=== PATIENT | female | born 1930 | race Caucasian/White ===

== ENCOUNTER 2016-09-25 22:08 | Emergency (ER) | payer MEDICARE ==
[2016-09-25] MEDS ORDERED: METOPROLOL SUCCINATE 25 MG TAB.SR.24H PO ONE (22:27)
[2016-09-25] MEDS ORDERED: MECLIZINE HCL 25 MG TABLET PO ONE (22:31)
--- NOTE | 2016-09-25 22:31 | ER Document Report ---
ED General - General Stated Complaint: DIZZY Mode of Arrival: Medic Information source: Patient, Relative Notes: 85 yr old female with hx of afib, on xarelto plavi presents with complaints of high blood pressure and heart racing with head pressure. pt denies any neuro deficits, unsure of time frame of symptoms. notes she took her meds as prescribed. pt is on toprol. denies any fevers or chills, nausea or vomiting. pt denies any chest pain TRAVEL OUTSIDE OF THE [place] IN LAST 30 DAYS: No - HPI Onset: Just prior to arrival Onset/Duration: Sudden Quality of pain: No pain Severity: Mild Pain Level: Denies Associated symptoms: Other Exacerbated by: Denies Relieved by: Denies Similar symptoms previously: No Recently seen / treated by doctor: No - Related Data Allergies/Adverse Reactions: nitrofurantoin [From Macrobid] Allergy (Verified 09/25/16 23:34) nitrofurantoin macrocrystalline [From Macrobid] Allergy (Verified 09/25/16 23:34 ) Past Medical History - Social History Smoking Status: Never Smoker Cigarette use (# per day): No Chew tobacco use (# tins/day): No Smoking Education Provided: No Family History: Reviewed & Not Pertinent - Past Medical History Cardiac Medical History: Reports: Hx Atrial Fibrillation, Hx Coronary Artery Disease, Hx Hypercholesterolemia, Hx Hypertension Denies: Hx Heart Attack Pulmonary Medical History: Reports: Hx Asthma Denies: Hx Bronchitis, Hx COPD, Hx Pneumonia Neurological Medical History: Denies: Hx Cerebrovascular Accident, Hx Seizures Musculoskeltal Medical History: Reports Hx Arthritis - R.shoulder Past Surgical History: Reports: Hx Cardiac Catheterization - cardiac stents x 2 , Hx Cardiac Surgery - pacemaker, Hx Cholecystectomy, Hx Coronary Stent, Hx Genitourinary Surgery - bladder tac, vaginal mesh, Hx Hysterectomy, Hx Orthopedic Surgery - Right Hip, Hx Pacemaker - Immunizations Hx Diphtheria, Pertussis, Tetanus Vaccination: No Review of Systems - Review of Systems Notes: REVIEW OF SYSTEMS: CONSTITUTIONAL : Denies fever, chills, or sweats. Denies recent illness. EENT: Denies eye, ear, throat, or mouth pain or symptoms. Denies nasal or sinus congestion or discharge. Denies throat, tongue, or mouth swelling or difficulty swallowing. CARDIOVASCULAR: admits to afib, heart racing RESPIRATORY: Denies cough, cold, or chest congestion. Denies shortness of breath, difficulty breathing, or wheezing. GASTROINTESTINAL: admits to feeling gassy GENITOURINARY: Denies difficulty urinating, painful urination, burning, frequency, blood in urine, or discharge. FEMALE GENITOURINARY: Denies vaginal bleeding, heavy or abnormal periods, irregular periods. Denies vaginal discharge or odor. MUSCULOSKELETAL: Denies back or neck pain or stiffness. Denies joint pain or swelling. SKIN: Denies rash, lesions or sores. HEMATOLOGIC : Denies easy bruising or bleeding. LYMPHATIC: Denies swollen, enlarged glands. NEUROLOGICAL: Denies confusion or altered mental status. Denies passing out or loss of consciousness. Denies dizziness or lightheadedness. Denies headache. Denies weakness or paralysis or loss of use of either side. Denies problems with gait or speech. Denies sensory loss, numbness, or tingling. Denies seizures. PSYCHIATRIC: Denies anxiety or stress. Denies depression, suicidal ideation, or homicidal ideation. ALL OTHER SYSTEMS REVIEWED AND NEGATIVE. Dictation was performed using [employer] voice recognition software PHYSICAL EXAMINATION: GENERAL: Well-appearing, well-nourished and in no acute distress. HEAD: Atraumatic, normocephalic. EYES: Pupils equal round and reactive to light, extraocular movements intact, conjunctiva are normal. ENT: Nares patent, oropharynx clear without exudates. Moist mucous membranes. NECK: Normal range of motion, supple without lymphadenopathy LUNGS: Breath sounds clear to auscultation bilaterally and equal. No wheezes rales or rhonchi. HEART: irregular rate and rythm, around 95-110 ABDOMEN: Soft, nontender, nondistended abdomen. No guarding, no rebound. No masses appreciated. Female : deferred Musculoskeletal: Normal range of motion, no pitting or edema. No cyanosis. NEUROLOGICAL: Cranial nerves grossly intact. Normal speech, normal gait. Normal sensory, motor exams PSYCH: Normal mood, normal affect. SKIN: Warm, Dry, normal turgor, no rashes or lesions noted. Physical Exam - Vital signs Vitals: Pulse Resp BP Pulse Ox 101 H 16 166/105 H 97 09/25/16 22:15 09/25/16 22:15 09/25/16 22:15 09/25/16 22:15 Course - Re-evaluation Re-evalutation: 09/25/16 22:31 pt has very vague complaints, will order ct head, lab work, cardiac workup and ua for complete evaluation . pt herself unable to explain what she is feeling 09/26/16 00:14 Patient's heart rate blood pressure have stabilized, she notes significant improvement in symptoms. Lab work imaging are negative reports will be provided for follow-up with primary care on Wednesday family is happy for discharge After performing a Medical Screening Examination, I estimate there is LOW risk for ACUTE GLAUCOMA, TEMPORAL ARTERITIS, MENINGITIS, INCRANIAL HEMORRHAGE, or ISCHEMIC STROKE thus I consider the discharge disposition reasonable. The patient and I have discussed the diagnosis and risks, and we agree with discharging home with close follow-up with the understanding that symptoms and presentations can change. We also discussed returning to the Emergency Department immediately if new or worsening symptoms occur. We have discussed the symptoms which are most concerning (e.g., changing or worsening symptoms, new numbness or weakness, vomiting, fever) that necessitate immediate return. - Vital Signs Vital signs: Temp Pulse Resp BP Pulse Ox 101 H 16 166/105 H 97 09/25/16 22:15 09/25/16 22:15 09/25/16 22:15 09/25/16 22:15 - Laboratory Result Diagrams: 09/25/16 23:15 09/25/16 23:15 Laboratory results interpreted by me: 09/25/16 09/25/16 23:15 23:15 Hgb 11.7 L MCHC 31.6 L RDW 14.8 H AST 60 H Creatine Kinase 23 L Total Protein 6.2 L - Diagnostic Test Radiology reviewed: Image reviewed, Reports reviewed - EKG Interpretation by Me EKG shows normal: Sinus rhythm, Jackson, Intervals, QRS Complexes Rhythm: A.Fib Discharge - Discharge Clinical Impression: Headache Qualifiers: Headache type: unspecified Headache chronicity pattern: acute headache Intractability: not intractable Qualified Code(s): R51 - Headache Afib Qualifiers: Atrial fibrillation type: persistent Qualified Code(s): I48.1 - Persistent atrial fibrillation HTN (hypertension) Qualifiers: Hypertension type: essential hypertension Qualified Code(s): I10 - Essential ( primary) hypertension Condition: Stable Disposition: HOME, SELF-CARE Additional Instructions: Headache The physician does not feel that the headache you are experiencing has a serious underlying cause. Most headaches are due to emotional stress, with resultant muscle tension (tension headache). Occasionally, headaches are secondary to changes in the blood vessels of the scalp (vascular headache and migraine headache). Sometimes, a headache is the first symptom of another developing illness, such as a viral infection. You have no evidence of stroke, bleeding, meningitis, or other serious cause of your headache. The treatment of headaches varies with the severity and cause of the pain. Not all headaches need pain shots. In fact, there is evidence that using narcotics for headaches may make them worse in the long run. The physician will determine the therapy that's in your best interest. If you develop a fever, if the headache is different from any you've previously experienced, or if the headache progressively worsens, then call your physician at once or go to the emergency room. Referrals: Sebastien Delcid DO [Primary Care Provider] - Follow up in 3-5 days
[2016-09-25 23:40] LABS: ABSOLUTE LYMPHOCYTES (AUTO) 1.1 10^3/uL (0.5-4.7); ABSOLUTE MONOCYTES (AUTO) 0.6 10^3/uL (0.1-1.4); ABSOLUTE NEUT (AUTO) 5.4 10^3/uL (1.7-8.2); BASOPHILS % (AUTO) 0.5 % (0-2); EOSINOPHILS % (AUTO) 0.6 % (0-6); HEMOGLOBIN 11.7 g/dL (12.0-15.5); HGB HCT DIFFERENCE -1.9; LYMPHOCYTES % (AUTO) 15.8 % (13-45); MEAN CORPUSCULAR HEMOGLOBIN 30.4 pg (27.0-33.4); MEAN CORPUSCULAR HGB CONC 31.6 g/dL (32.0-36.0); MEAN CORPUSCULAR VOLUME 96 fl (80-97); MONOCYTES % (AUTO) 8.5 % (3-13); RED BLOOD COUNT 3.85 10^6/uL (3.72-5.28); RED CELL DISTRIBUTION WIDTH 14.8 % (11.5-14.0); SEGMENTED NEUTROPHILS % (AUTO) 74.6 % (42-78); WHITE BLOOD COUNT 7.3 10^3/uL (4.0-10.5)
[2016-09-25 23:46] LABS: ALANINE AMINOTRANSFERASE 40 U/L (9-52); ALBUMIN 3.6 g/dL (3.5-5.0); ALKALINE PHOSPHATASE 82 U/L (38-126); ANION GAP 7 (5-19); ASPARTATE AMINO TRANSFERASE 60 U/L (14-36); BILIRUBIN,TOTAL 0.6 mg/dL (0.2-1.3); BLOOD UREA NITROGEN 16 mg/dL (7-20); CALCIUM 9.2 mg/dL (8.4-10.2); CARBON DIOXIDE 30 mmol/L (22-30); CHLORIDE 104 mmol/L (98-107); CREATINE KINASE 23 U/L (30-135); CREATININE RESULT 0.58 mg/dL (0.52-1.25); GLUCOSE 107 mg/dL (75-110); POTASSIUM 4.1 mmol/L (3.6-5.0); SODIUM 140.9 mmol/L (137-145); TOTAL PROTEIN 6.2 g/dL (6.3-8.2)
[2016-09-25 23:57] LABS: APPEARANCE,URINE CLEAR; BILIRUBIN,URINE NEGATIVE (NEGATIVE); GLUCOSE, URINE NEGATIVE (NEGATIVE); KETONES,URINE NEGATIVE (NEGATIVE); LEUKOCYTE ESTERASE,URINE NEGATIVE (NEGATIVE); NITRITE,URINE NEGATIVE (NEGATIVE); PROTEIN,URINE NEGATIVE (NEGATIVE); URINE SPECIFIC GRAVITY 1.009; UROBILINOGEN,URINE NEGATIVE mg/dL (<2.0)
[2016-09-25 23:58] LABS: CREATINE KINASE MB 0.56 ng/mL (<4.55)
[2016-09-26 00:01] LABS: TROPONIN I < 0.012 ng/mL
[2016-09-26 01:41] VITALS: BP 146/82
--- NOTE | 2016-09-26 09:23 | EKG REPORT ---
SEVERITY:- ABNORMAL ECG - ATRIAL FIBRILLATION, V-RATE 72-111 BORDERLINE T ABNORMALITIES, ANT-LAT LEADS : Confirmed by: Wendy Mustafa MD 26-Sep-2016 09:23:09
== END 2016-09-26 01:41 | disposition home or self-care (01) ==
LOC: ER 22:08
DX: I48.1 Persistent atrial fibrillation (principal); I25.10 Atherosclerotic heart disease of native coronary artery without angina pectoris; I10 Essential (primary) hypertension; R51 Headache; J45.909 Unspecified asthma, uncomplicated; Z79.01 Long term (current) use of anticoagulants; Z79.899 Other long term (current) drug therapy; Z88.1 Allergy status to other antibiotic agents; Z98.61 Coronary angioplasty status; Z95.0 Presence of cardiac pacemaker
CPT/HCPCS: 93005; 99285; 36415; 82553; 82550; 85025; 80053; 81001; 84484; 71020; 70450; 93010; A9270 ×2

== ENCOUNTER 2017-01-17 21:24 | Observation (INO) | payer MEDICARE ==
--- NOTE | 2017-01-17 22:20 | ER Document Report ---
ED General - General Chief Complaint: Headache Stated Complaint: HEADACHE Notes: Patient is a very pleasant 86-year-old female who presents with complaints of difficulty talking. She said yesterday she 7 speech difficulties and her speech was garbled and she was unable to get out the words she wants a. This morning she says that she felt like she cannot process information that was being said to her and she was having difficulty responding. The symptoms have since resolved. Tonight she developed headache. Headache is only the back of her head. She says the headache gradually worsened. Headache was not sudden in onset. She says the headache is still there but much improved. His story was earlier. No focal weakness or numbness in the arms or legs. No difficulty in relating. She does have a history of atrial fibrillation and is on Xarelto. She does have a history of heart attack with stent and is on Plavix. No history of strokes. TRAVEL OUTSIDE OF THE [place] IN LAST 30 DAYS: No - Related Data Allergies/Adverse Reactions: nitrofurantoin [From Macrobid] Allergy (Verified 09/25/16 23:34) nitrofurantoin macrocrystalline [From Macrobid] Allergy (Verified 09/25/16 23:34 ) Past Medical History - Social History Smoking Status: Never Smoker Frequency of alcohol use: None Drug Abuse: None Family History: Reviewed & Not Pertinent - Past Medical History Cardiac Medical History: Reports: Hx Atrial Fibrillation, Hx Coronary Artery Disease, Hx Hypercholesterolemia, Hx Hypertension Denies: Hx Heart Attack Pulmonary Medical History: Reports: Hx Asthma Denies: Hx Bronchitis, Hx COPD, Hx Pneumonia Neurological Medical History: Denies: Hx Cerebrovascular Accident, Hx Seizures Musculoskeltal Medical History: Reports Hx Arthritis - R.shoulder Past Surgical History: Reports: Hx Cardiac Catheterization - cardiac stents x 2 , Hx Cardiac Surgery - pacemaker, Hx Cholecystectomy, Hx Coronary Stent, Hx Genitourinary Surgery - bladder tac, vaginal mesh, Hx Hysterectomy, Hx Orthopedic Surgery - Right Hip, Hx Pacemaker - Immunizations Hx Diphtheria, Pertussis, Tetanus Vaccination: No Review of Systems - Review of Systems Notes: My Normal Review Basic REVIEW OF SYSTEMS: CONSTITUTIONAL : Denies fever, chills, or sweats. Denies recent illness. EENT: Denies eye, ear, throat, or mouth pain or symptoms. Denies nasal or sinus congestion. CARDIOVASCULAR: Denies chest pain. RESPIRATORY: Denies cough, cold, or chest congestion. Denies shortness of breath, difficulty breathing, or wheezing. GASTROINTESTINAL: Denies abdominal pain. Denies nausea, vomiting, or diarrhea. Denies constipation. Last BM: MUSCULOSKELETAL: Denies neck or back pain or joint pain or swelling. SKIN: Denies rash or skin lesions. HEMATOLOGIC : On blood thinners. NEUROLOGICAL: Denies altered mental status or loss of consciousness. Has a headache. Denies weakness or paralysis or loss of use of either side. Had difficulty talking.. Denies sensory or motor loss. Physical Exam - Vital signs Vitals: Temp Resp BP Pulse Ox 97.9 F 21 H 176/85 H 97 01/17/17 21:48 01/17/17 21:48 01/17/17 21:48 01/17/17 21:48 - Notes Notes: General Appearance: Well nourished, alert, cooperative, no acute distress, no obvious discomfort. Very well-appearing. Vitals: reviewed, See vital signs table. Head: no swelling or tenderness to the head Eyes: PERRL, EOMI, Conjuctiva clear Mouth: No decreasd moisture Neck: Supple, no neck tenderness, No thyromegaly Lungs: No wheezing, No rales, No rhonci, No accessory muscle use, good air exchange bilaterally. Heart: Normal rate, Regular rythm, No murmur, no rub Abdomen: Normal BS, soft, No rigidity, No abdominal tenderness, No guarding, no rebound, no abdominal masses, no organomegaly Extremities: strength 5/5 in all extremities, good pulses in all extremities, no swelling or tenderness in the extremities, no edema. Skin: warm, dry, appropriate color, no rash Neuro: speech clear, oriented x 3, normal affect, responds appropriately to questions. Cranial nerves II through XII are intact. Distal sensation intact. Patient moves all extremities without difficulty. Normal gait. Normal Romberg. Course - Vital Signs Vital signs: Temp Pulse Resp BP Pulse Ox 97.9 F 18 153/87 H 97 01/17/17 21:48 01/18/17 00:01 01/18/17 00:01 01/18/17 00:01 - Laboratory Result Diagrams: 01/17/17 22:20 01/17/17 22:20 Laboratory results interpreted by me: 01/17/17 01/17/1717 22:20 22:20 22:20 WBC 11.1 H Plt Count 147 L Seg Neutrophils % 83.3 H Lymphocytes % 7.9 L Absolute Neutrophils 9.3 H PT 28.6 H APTT 38.8 H Sodium 131.4 L BUN 22 H Glucose 111 H Total Protein 5.7 L Albumin 3.4 L Ur Leukocyte Esterase 01/17/17 23:01 WBC Plt Count Seg Neutrophils % Lymphocytes % Absolute Neutrophils PT APTT Sodium BUN Glucose Total Protein Albumin Ur Leukocyte Esterase TRACE H - EKG Interpretation by Me Additional EKG results interpreted by me: 01/17/17 22:34 EKG is reviewed and interpreted by me. EKG shows atrial fibrillation with rate of 83 beats per minute. No ST segment elevation or depression. No ischemic T wave inversions. QRS duration QTC intervals are within normal range. Old EKG for comparison is from 09/25/2016. - Transfer of Care Notes: 01/18/17 00:44 Patient has signs and symptoms consistent with a TA and that she was having slurring of her speech as well as difficulty processing information earlier today and from night before. She did have a headache which is gradual in onset. Not sudden onset. All her symptoms have since resolved. She is well- appearing. At this time I spoke with the hospitalist about admission for TIA. Patient and family are agreeable to this. Hospitalist agrees to admit the patient. Dictation of this chart was performed using voice recognition software; therefore, there may be some unintended grammatical errors. Discharge - Discharge Clinical Impression: TIA (transient ischemic attack) Qualifiers: Transient cerebral ischemia type: unspecified Qualified Code(s): G45.9 - Transient cerebral ischemic attack, unspecified Headache Qualifiers: Headache type: unspecified Headache chronicity pattern: acute headache Intractability: not intractable Qualified Code(s): R51 - Headache Condition: Stable Disposition: ADMITTED OBSERVATION Admitting Provider: Hospitalist Unit Admitted: Telemetry
--- NOTE | 2017-01-17 22:36 | EKG REPORT ---
SEVERITY:- ABNORMAL ECG - ATRIAL FIBRILLATION, V-RATE 69-101 CONSIDER LEFT VENTRICULAR HYPERTROPHY BORDERLINE T ABNORMALITIES, INFERIOR LEADS : Confirmed by: Dusty Hunter MD 17-Jan-2017 22:36:27
[2017-01-17 22:37] LABS: ABSOLUTE LYMPHOCYTES (AUTO) 0.9 10^3/uL (0.5-4.7); ABSOLUTE MONOCYTES (AUTO) 0.9 10^3/uL (0.1-1.4); ABSOLUTE NEUT (AUTO) 9.3 10^3/uL (1.7-8.2); BASOPHILS % (AUTO) 0.2 % (0-2); EOSINOPHILS % (AUTO) 0.2 % (0-6); HEMATOCRIT 38.4 % (36.0-47.0); HEMOGLOBIN 13.1 g/dL (12.0-15.5); HGB HCT DIFFERENCE 0.9; LYMPHOCYTES % (AUTO) 7.9 % (13-45); MEAN CORPUSCULAR HEMOGLOBIN 31.9 pg (27.0-33.4); MEAN CORPUSCULAR HGB CONC 34.3 g/dL (32.0-36.0); MEAN CORPUSCULAR VOLUME 93 fl (80-97); MONOCYTES % (AUTO) 8.4 % (3-13); RED BLOOD COUNT 4.12 10^6/uL (3.72-5.28); RED CELL DISTRIBUTION WIDTH 13.7 % (11.5-14.0); SEGMENTED NEUTROPHILS % (AUTO) 83.3 % (42-78); WHITE BLOOD COUNT 11.1 10^3/uL (4.0-10.5)
[2017-01-17 22:54] LABS: ALANINE AMINOTRANSFERASE 42 U/L (9-52); ALBUMIN 3.4 g/dL (3.5-5.0); ALKALINE PHOSPHATASE 86 U/L (38-126); ANION GAP 7 (5-19); ASPARTATE AMINO TRANSFERASE 22 U/L (14-36); BILIRUBIN,DIRECT 0.1 mg/dL (0.0-0.4); BILIRUBIN,TOTAL 0.6 mg/dL (0.2-1.3); BLOOD UREA NITROGEN 22 mg/dL (7-20); CARBON DIOXIDE 26 mmol/L (22-30); CHLORIDE 98 mmol/L (98-107); CREATININE RESULT 0.64 mg/dL (0.52-1.25); GLUCOSE 111 mg/dL (75-110); MAGNESIUM 1.9 mg/dL (1.6-2.3); POTASSIUM 4.4 mmol/L (3.6-5.0); SODIUM 131.4 mmol/L (137-145); TOTAL PROTEIN 5.7 g/dL (6.3-8.2)
[2017-01-17 23:22] LABS: PROTHROMBIN TIME 28.6 SEC (11.4-15.4)
[2017-01-17 23:23] LABS: PARTIAL THROMBOPLASTIN TIME 38.8 SEC (23.5-35.8)
[2017-01-17 23:24] LABS: APPEARANCE,URINE CLEAR; BILIRUBIN,URINE NEGATIVE (NEGATIVE); GLUCOSE, URINE NEGATIVE (NEGATIVE); KETONES,URINE NEGATIVE (NEGATIVE); LEUKOCYTE ESTERASE,URINE TRACE (NEGATIVE); NITRITE,URINE NEGATIVE (NEGATIVE); PROTEIN,URINE NEGATIVE (NEGATIVE); URINE SPECIFIC GRAVITY 1.011; UROBILINOGEN,URINE NEGATIVE mg/dL (<2.0)
[2017-01-18] MEDS ORDERED: ASPIRIN 81 MG TABLET, CHEWABLE PO ONE (00:43)
[2017-01-18 00:57] LABS: ADD ON TESTING BLD IN LAB ACKNOWLEDGE
[2017-01-18 01:54] LABS: DIGOXIN < 0.40 ng/mL (0.8-2.0)
[2017-01-18] MEDS ORDERED: ACETAMINOPHEN 325 MG TABLET PO PRN (02:17)
[2017-01-18] MEDS ORDERED: NORMAL SALINE 1000 ML 1,000 ML IV PRN (02:17)
--- NOTE | 2017-01-18 02:54 | PDOC H&P ---
History of Present Illness Admission Date/PCP: 01/18/17 00:56 [facility], Chow, " Patient complains of: headache History of Present Illness: ROBINSON HAMM is a 86 year old female with underlying hyperlipidemia, mild anxiety, easy bruising, arthritis, atrial fibrillation, on Xarelto for same , known coronary artery disease, having undergone stent 3, with most recent stent in 2014, who presents to the emergency room for evaluation of above complaint. Patient has been discussed with emergency room physician who evaluated the patient. On the sixth of this month, she began having difficulty with somewhat garbled speech, and unable to express the words she wanted. On the seventh, when other people were talking to her, she felt she couldn't process the information, and was having difficulty responding. No dysphagia or drooling. No numbness or tingling. No weakness. No prior such episodes. No history of stroke, TIA, mini stroke, or seizure. The evening of the seventh, she developed a mild occipital headache, which is still present but much improved. gradual development of a headache. Has headaches on occasion but not very often. No associated chest or abdominal pain, nausea vomiting, fever chills, diarrhea or dysuria. Basically she feels back to her usual self, other than the mild occipital headache. Laboratory results are listed in [facility] and are reviewed. X-ray summary results are listed below, with full report(s) reviewed. . EKG reviewed. And compared to a prior tracing from September 25 of this year. Social history/personal habits: . Lives with . Adult children. No use of alcohol tobacco or illicit drugs. Allergies/adverse reactions are listed in [facility] and are reviewed. Home medications Home medications initially autopopulated into [facility] may not accurately reflect patient's true medications, dosages, and/or frequencies. operating room technologist to reconcile medications. REVIEW OF SYSTEMS: Constitutional: No fever or chills. Eyes: Wears glasses. ENT: No swallowing problems or complaints. Partial hearing loss. Pulmonary: No current complaints. Cardiovascular: No current complaints, including chest pain. Gastrointestinal: No current complaints, including nausea or vomiting. Skin: No current complaints, including rashes. Hematologic: Easy bruising. Neurologic: See history and present illness. Musculoskeletal: Mild Joint pain from arthritis. Psychiatric: Mild Anxiety Endocrine: No current complaints, including polyuria. Genitourinary: No current complaints, including dysuria. PHYSICAL EXAMINATION: 5 feet 2 inches tall. 44.1 kg. BMI 17.8 kg/m. Blood pressure 172/92. Pulse 73 and regular. 98% saturation on room air. Respirations are 18 and unlabored. Temperature 97.9. Thin otherwise well-developed elderly female appearing approximately her stated age. Pleasant awake alert and cooperative. No obvious distress other than somewhat anxious. No agitation. Skin is warm and dry. No grossly obvious evidence of rash in areas of skin examined. No subcutaneous nodules palpated. ENT: Hearing grossly normal to normal conversation. Tongue midline on protrusion pink and slightly tacky. Eyes: No scleral icterus. Pupils equal and reactive to light at 4 mm. Cartwright conjunctivae. Neck is supple and nontender to gentle active range of motion and palpation. Midline trachea. No palpable thyroid nodule mass enlargement or tenderness. Lymphatic: No palpable cervical or clavicular nodes. Psychiatric: Reasonable insight into acute and chronic medical issues. Oriented to time location and why here. Lungs: Auscultation reveals clear and equal breath sounds bilaterally. No use of accessory respiratory muscles. Cardiovascular: Heart slightly irregular rate and rhythm, without gallop murmur or rub. No carotid or abdominal aortic bruits. No ankle or pedal edema. Faintly palpable dorsalis pedis pulses. Abdomen: soft, nontender with positive bowel sounds. No upper abdominal mass or organomegaly palpated. Extremities: Feet are warm and dry. No calf tenderness to compression. No grossly obvious visual evidence of calf swelling. Gentle manipulation of lower extremities fails to reveal any obvious evidence of injury or instability to knees hips or ankles. Neurologic: Cranial Nerves II through XII are grossly intact. Light touch intact at face, upper and lower extremities. Motor function of major muscle groups upper and lower extremities 5 over 5 and symmetric. Patellar reflexes absent. Absent Babinski. Past Medical History Cardiac Medical History: Reports: Atrial Fibrillation, Coronary Artery Disease, Hyperlipidema, Hypertension Denies: Congestive Heart Failure, DVT, Myocardial Infarction, Pulmonary Embolism Pulmonary Medical History: Reports: Asthma Denies: Bronchitis, Chronic Obstructive Pulmonary Disease (COPD), Pneumonia, Sleep Apnea EENT Medical History: Reports: Eyes - Glasses, Ears - Partial hearing loss Denies: Throat Neurological Medical History: Denies: Hemorrhagic CVA, Ischemic CVA, Seizures Endocrine Medical History: Denies: Diabetes Mellitus Type 1, Diabetes Mellitus Type 2, Hyperthyroidism, Hypothyroidism Renal/ Medical History: Reports: None GI Medical History: Denies: Cirrhosis, Gastroesophageal Reflux Disease, Hepatitis, Peptic Ulcer Disease Musculoskeltal Medical History: Reports: Arthritis - R.shoulder Skin Medical History: Reports: None Psychiatric Medical History: Reports: General Anxiety Disorder Denies: Alcohol Dependency, Depression, Substance Abuse, Tobacco Dependency Hematology: Reports: Anemia, Other - Easy bruising Infectious Medical History: Denies: Clostridium Difficile, Hepatitis B, Hepatitis C, Methicillin- Resistant Staph Aureus Past Surgical History Past Surgical History: Reports: Cholecystectomy, Coronary Stent - x 3; last 2014 , Hysterectomy, Orthopedic Surgery - Right Hip, Pacemaker Social History Information Source: Patient, Emergency Med Personnel, [facility] Records Lives with: Spouse/Significant other Smoking Status: Never Smoker Frequency of Alcohol Use: None Drugs: None - Advance Directive Resuscitation Status: Full Code Surrogate healthcare decision maker:: Zenon Echevarria Family History Family History: Reviewed & Not Pertinent Parental Family History Reviewed: Yes - mother of pneumonia; father of smoking problems. Children Family History Reviewed: Yes - Daughter with multiple sclerosis. Sibling(s) Family History Reviewed.: Yes - Hypertension Medication/Allergy Home Medications: Acetaminophen [Tylenol 325 mg Tablet] 650 mg PO Q4HP PRN 06/24/16 Atorvastatin Calcium [Lipitor 80 mg Tablet] 80 mg PO DAILY 06/24/16 Clopidogrel Bisulfate [Plavix 75 mg Tablet] 75 mg PO DAILY 06/24/16 Cyanocobalamin (Vitamin B-12) [B-12] 1,000 mcg PO Q2D 06/24/16 Lisinopril [Prinivil 2.5 mg Tablet] 2.5 mg PO DAILY 06/24/16 Metoprolol Succinate [Toprol XL 200 mg Tablet] 200 mg PO DAILY 06/24/16 Potassium Chloride 20 meq PO ASDIR PRN 06/24/16 Furosemide [Lasix] 40 mg PO ASDIR PRN 01/18/17 Montelukast Sodium 5 mg PO DAILY 01/18/17 Rivaroxaban [Xarelto] 15 mg PO QPM 01/18/17 Allergies/Adverse Reactions: nitrofurantoin [From Macrobid] Allergy (Verified 09/25/16 23:34) Physical Exam Vital Signs: Temp Pulse Resp BP Pulse Ox 97.9 F 73 18 147/74 H 99 01/17/17 21:48 01/18/17 02:00 01/18/17 02:00 01/18/17 02:00 01/18/17 02:00 Results Laboratory Results: 01/18/17 01:32 Troponin I < 0.012 Impressions: Head CT 01/17/17 21:58 IMPRESSION: MILD CHRONIC CHANGES OF ATROPHY AND MICROVASCULAR ISCHEMIA. NO ACUTE PROCESS. Assessment & Plan - Diagnosis (1) Abnormal urinalysis Is this a current diagnosis for this admission?: YesPlan: Urine culture. Will forego antibiotics at this time, with patient without symptoms of dysuria. (2) Acute focal neurological deficit Is this a current diagnosis for this admission?: YesPlan: Patient will be admitted under CVA/TIA protocol. Multiple imaging procedures, intracranial, vascular, and cardiac. lipid panel. Permissive hypertension, with some adjustment downward of parameters due to her anticoagulated state, combined with the fact that she is also on Plavix, and her advanced age. Patient is a full code. I have strongly urged patient not to get out of bed without calling nursing staff, to avoid a fall with injury.] Knee high SCDs for DVT prophylaxis; with patient on Xarelto, no need for Lovenox or heparin. Impression and plans were discussed with patient, who concurs. Time spent in evaluation and management of patient: 62 minutes (3) Dysarthria Is this a current diagnosis for this admission?: Yes (4) Headache Qualifiers: Headache type: unspecified Headache chronicity pattern: acute headache Intractability: not intractable Qualified Code(s): R51 - Headache Is this a current diagnosis for this admission?: YesPlan: mild; resolving with time. When necessary Tylenol. (5) Hyponatremia Is this a current diagnosis for this admission?: YesPlan: Possibly medication related. Follow-up chemistry. (6) Thrombocytopenia Is this a current diagnosis for this admission?: YesPlan: Intermittent in the past. Follow-up CBC. (7) Anticoagulated Is this a current diagnosis for this admission?: YesPlan: Resume home medications as appropriate once these have been determined and reviewed. (8) Atrial fibrillation Qualifiers: Atrial fibrillation type: unspecified Qualified Code(s): I48.91 - Unspecified atrial fibrillation Is this a current diagnosis for this admission?: YesPlan: Hemodynamically stable. Resume home medications as appropriate once these have been determined and reviewed. (9) Hyperlipidemia Qualifiers: Hyperlipidemia type: unspecified Qualified Code(s): E78.5 - Hyperlipidemia, unspecified Is this a current diagnosis for this admission?: YesPlan: Resume home medications as appropriate once these have been determined and reviewed. (10) Stented coronary artery Is this a current diagnosis for this admission?: YesPlan: Resume home medications as appropriate once these have been determined and reviewed.
[2017-01-18 07:12] LABS: HEMATOCRIT 40.2 % (36.0-47.0); HEMOGLOBIN 13.7 g/dL (12.0-15.5); HGB HCT DIFFERENCE 0.9; MEAN CORPUSCULAR HEMOGLOBIN 32.1 pg (27.0-33.4); MEAN CORPUSCULAR VOLUME 94 fl (80-97); RED BLOOD COUNT 4.26 10^6/uL (3.72-5.28); RED CELL DISTRIBUTION WIDTH 13.6 % (11.5-14.0)
[2017-01-18 07:17] LABS: PROTHROMBIN TIME 16.6 SEC (11.4-15.4)
[2017-01-18 07:21] LABS: ANION GAP 6 (5-19); BLOOD UREA NITROGEN 17 mg/dL (7-20); CALCIUM 9.3 mg/dL (8.4-10.2); CARBON DIOXIDE 28 mmol/L (22-30); CHLORIDE 101 mmol/L (98-107); CREATININE RESULT 0.57 mg/dL (0.52-1.25); GLUCOSE 92 mg/dL (75-110); POTASSIUM 4.4 mmol/L (3.6-5.0)
[2017-01-18 08:17] LABS: BASOPHILS % (MANUAL) 0 % (0-2); EOSINOPHILS % (MANUAL) 0 % (0-6); LYMPHOCYTES % (MANUAL) 12 % (13-45); TOTAL CELLS COUNTED 100
[2017-01-18 08:20] LABS: OVALOCYTES SLIGHT; POIKILOCYTOSIS SLIGHT
--- NOTE | 2017-01-18 08:57 | Physician Advisory Note ---
Physician Advisor ProgressNote .: Pursuant to the plan for [facility], I have reviewed the medical record for this patient. Physician Advisor Statement: Nice documentation of acute hyponatremia, possibly due to meds. Possible documentation opportunities if attending agrees: 1. "persistent Afib" [need specified whether persistent or paroxysmal] 2. "TIA" or "Acute cerebrovascular insufficiency" or "Acute __-sided thrombotic [or embolic, or other etiology] ___ artery* CVA with cerebral infarction, with dysarthria & ____, [resolved or improved or persistent] " *Ant/middle/post cerebral , sup cerebellar, or ant/post inf cerebellar artery? - Also, please specify whether pt is Rt or Lt-handed. 3. "underweight with protein-calorie malnutrition [state mild, mod, or severe] with BMI 17.8, ____[?wt loss, ?appetite loss, ]" [if possible, give specifics on intake, wt loss, loss of SQ fat & muscle mass, diminished hand inorganic chemistry professor strength, & clinical importance such as (A) nutritional assessment ordered, (B) modified diet or supplements ordered, (C) additional labs ordered, (D) prolonged wound healing time, (E) delayed infxn clearance] 4. Medical necessity: please see below under "Status". As always, if concerned about any unstable VS or abnormal labs, please comment on them - what bad things they might indicate, why they concern you - & note what doing about them. Please also document each day the potential clinical problems you are concerned could occur if pt not kept in hospital for tx at this time. (These points are real - if present in each note, attending's status decision should be sufficiently supported.) Discussion: 86yo female w/ chronic co-morbidities including CAD w/stents/pacer/MO/Plavix, Afib persistent - on Xarelto, HTN, HLD, asthma - presented 5/7 PM to ED w/difficulty getting words out & processing info, then ALTMAN of occipital area (+) BMI 17.8, WBC 11.1, plts 147, Na 131.4, BUN 22, Cr 0.64, glc 111, U/A w/tr LE. Attending ordered PT eval, VS q4h, neuro exams, ur cx, senior technical analyst consult, tele monitoring, I/Os, aspiration prec.s, carotid dops, echo, po KCL, Lipitor high dose Status: This 86yo [facility] [employer] pt with mild neuro sx that don't affect ADLs, + acute hyponatremia, is approp to start as Outpt Obs for acute focal neuro deficit ("a symptom dx"). Please document if ongoing tx & observation in inpatient hospital setting becomes medically reasonable & necessary to protect pt's health, safety, & medical condition. Thanks for your help with documentation accuracy/specificity improvement! Brooklyn Guadalupe MD [facility]ENDING [facility] Physician Advisor, Fellow of Hospital Medicine
[2017-01-18] MEDS ORDERED: LISINOPRIL 5 MG TABLET PO SCH (10:00)
[2017-01-18] MEDS ORDERED: ASPIRIN 81 MG TABLET, ENT COATED PO SCH (10:00)
[2017-01-18] MEDS ORDERED: METOPROLOL SUCCINATE 50 MG TAB.SR.24H PO SCH (10:00)
[2017-01-18] MEDS ORDERED: CLOPIDOGREL BISULFATE 75 MG TABLET PO SCH (10:00)
[2017-01-18] MEDS ORDERED: DOCUSATE SODIUM 100 MG CAPSULE PO SCH (10:00)
[2017-01-18] MEDS ORDERED: MONTELUKAST SODIUM 5 MG TAB.CHEW PO SCH (10:00)
[2017-01-18] MEDS ORDERED: CYANOCOBALAMIN (VITAMIN B-12) 1,000 MCG TABLET PO SCH (10:00)
--- NOTE | 2017-01-18 11:00 | PDOC DISCHARGE SUMMARY ---
General - Admit/Disc Date/PCP Admission Date/Primary Care Provider: 01/18/17 02:17 Discharge Date: 01/18/17 - Discharge Diagnosis (1) TIA (transient ischemic attack) Is this a current diagnosis for this admission?: Yes (2) Atrial fibrillation Is this a current diagnosis for this admission?: Yes (3) Thrombocytopenia Is this a current diagnosis for this admission?: Yes (4) Anticoagulated Is this a current diagnosis for this admission?: Yes (5) Hyperlipidemia Is this a current diagnosis for this admission?: Yes (6) Stented coronary artery Is this a current diagnosis for this admission?: Yes - Additional Information Resuscitation Status: Full Code Discharge Diet: Cardiac Discharge Activity: Slowly Increase Activity Home Medications: Acetaminophen [Tylenol 325 mg Tablet] 650 mg PO Q4HP PRN 06/24/16 Atorvastatin Calcium [Lipitor 80 mg Tablet] 80 mg PO DAILY 06/24/16 Clopidogrel Bisulfate [Plavix 75 mg Tablet] 75 mg PO DAILY 06/24/16 Cyanocobalamin (Vitamin B-12) [B-12] 1,000 mcg PO Q2D 06/24/16 Lisinopril [Prinivil 2.5 mg Tablet] 2.5 mg PO DAILY 06/24/16 Metoprolol Succinate [Toprol XL 200 mg Tablet] 200 mg PO DAILY 06/24/16 Potassium Chloride 20 meq PO ASDIR PRN 06/24/16 Furosemide [Lasix] 40 mg PO ASDIR PRN 01/18/17 Montelukast Sodium 5 mg PO DAILY 01/18/17 Rivaroxaban [Xarelto] 15 mg PO QPM 01/18/17 History of Present Illness Patient complains of: Dysarthria History of Present Illness: ROBINSON HAMM is a 86 year old female with past medical history of coronary artery disease, atrial fibrillation that presents with history of dysarthria starting 2 days prior to presentation. Dysarthria had resolved at time of presentation. Patient had no focal neurologic findings on presentation. Hospital Course Hospital Course: Patient was placed in observation status. Neurologic status remained stable. Patient is fully anticoagulated on Xarelto at baseline for atrial fibrillation. She has also been on Plavix for a stented coronary artery. She states that she is supposed to terminate her Plavix in one month anyway because she is going to be one year status post coronary intervention. She is followed by Dr. Chow of cardiology with [facility]. Patient was evaluated by physical therapy and had no deficits. She was able to ambulate 300 feet without assistance. After discussion with patient she has decided that she would rather have her carotid Doppler performed as an outpatient. I think that is reasonable as she has absolutely no neurologic deficits at this time and she is on full anticoagulation and antiplatelet therapy, as well as a statin. Patient is to follow-up with her primary care provider Dr. Delcid at [facility]. We will need her primary care provider to arrange outpatient carotid Doppler study. Physical Exam Vital Signs: Temp Pulse Resp BP Pulse Ox 98.0 F 96 17 162/84 H 99 01/18/17 07:17 01/18/17 08:00 01/18/17 08:00 01/18/17 08:00 01/18/17 08:00 Intake & Output 01/17/17 01/18/17 01/19/17 06:59 06:59 06:59 Weight 44.6 kg GENERAL: No acute distress HEENT: Conjunctiva clear, nonicteric, moist mucous membranes, no JVD, midline trachea RESPIRATORY: Clear to auscultation bilaterally, no wheezes, no rhonchi CARDIAC: Irregularly irregular ABDOMEN: Soft, nondistended, nontender, positive bowel sounds, no rebound, no guarding EXTREMETIES: No edema, cyanosis, clubbing NEUROLOGIC: Alert, oriented to person/place/time, CN's grossly intact, no focal deficits SKIN: No rash, wounds PSYCH: Normal mood, normal affect Results Laboratory Results: 01/18/17 06:54 01/18/17 06:54 01/18/17 01/18/17 06:54 06:54 WBC 10.0 RBC 4.26 Hgb 13.7 Hct 40.2 MCV 94 MCH 32.1 MCHC 34.0 RDW 13.6 Plt Count 137 L Seg Neutrophils % Not Reportable Lymphocytes % Not Reportable Monocytes % Not Reportable Eosinophils % Not Reportable Basophils % Not Reportable Absolute Neutrophils Not Reportable Absolute Lymphocytes Not Reportable Absolute Monocytes Not Reportable Absolute Eosinophils Not Reportable Absolute Basophils Not Reportable Sodium 135.0 L Potassium 4.4 Chloride 101 Carbon Dioxide 28 Anion Gap 6 BUN 17 Creatinine 0.57 Est GFR ( Amer) > 60 Est GFR (Non-Af Amer) > 60 Glucose 92 Calcium 9.3 EKG Comments: Atrial fibrillation, rate controlled Impressions: Head CT 01/17/17 21:58 IMPRESSION: MILD CHRONIC CHANGES OF ATROPHY AND MICROVASCULAR ISCHEMIA. NO ACUTE PROCESS. Qualifiers PATEINT BEING DISCHARGED WITH ANY OF THE FOLLOWING DIAGNOSIS?: Stroke VTE patient discharged on overlapping Therapy?: Yes Stroke Pt being discharged on Anti-thrombolytic therapy?: Yes Stroke Pt being discharged on Anti-coagulation therapy?: Yes Stroke Pt being discharged on Statins?: Yes Plan Time Spent: Less than 30 Minutes
[2017-01-18 12:06] VITALS: BP 160/65
[2017-01-18] MEDS ORDERED: ATORVASTATIN CALCIUM 80 MG TABLET PO SCH (22:00)
== END 2017-01-18 12:18 | disposition home or self-care (01) ==
LOC: ER 21:24 → EH 01-18 00:56 → UNDOADMOB 01-18 00:56 → EH 01-18 02:17 → 3S 01-18 03:45
PROVIDERS: ADMIT Family Medicine; ATTEND Family Medicine
DX: G45.9 Transient cerebral ischemic attack, unspecified (principal); I48.91 Unspecified atrial fibrillation; D69.6 Thrombocytopenia, unspecified; E78.5 Hyperlipidemia, unspecified; I25.10 Atherosclerotic heart disease of native coronary artery without angina pectoris; F41.9 Anxiety disorder, unspecified; M13.811 Other specified arthritis, right shoulder; J45.909 Unspecified asthma, uncomplicated; R82.90 Unspecified abnormal findings in urine; E87.1 Hypo-osmolality and hyponatremia; Z79.01 Long term (current) use of anticoagulants; Z95.5 Presence of coronary angioplasty implant and graft; Z79.02 Long term (current) use of antithrombotics/antiplatelets; Z79.899 Other long term (current) drug therapy; Z95.0 Presence of cardiac pacemaker; Z90.49 Acquired absence of other specified parts of digestive tract; Z82.49 Family history of ischemic heart disease and other diseases of the circulatory system; Z83.1 Family history of other infectious and parasitic diseases
CPT/HCPCS: 93005; 99285; 36415 ×2; 87086; 80162; 83735; 85025 ×2; 85610 ×2; 85730; 80048; 80053; 81001; 84484; 70450; 93010; 97163; G0378 ×2; A9270 ×7; J3490; J7030; G8978; G8979; G8980

== ENCOUNTER 2017-06-03 14:21 | Emergency (ER) | payer MEDICARE ==
--- NOTE | 2017-06-03 15:00 | ER Document Report ---
ED Medical Screen (RME) - General Chief Complaint: Headache Stated Complaint: VISION PROBLEM Time Seen by Provider: 06/03/17 14:58 Notes: Patient reports that just prior to arrival she had some blurry vision. She states it started suddenly while eating at [employer]. She states she was unable to tell which eye was affected. She also states that her left hand felt numb. She states he feels back to normal now. She states she has had a mini stroke in the past and that she has had a heart attack as well. She states she has 3 cardiac stents. She also has a history of atrial fibrillation and is on aspirin and Xarelto daily. TRAVEL OUTSIDE OF THE [place] IN LAST 30 DAYS: No - Related Data Allergies/Adverse Reactions: nitrofurantoin [From Macrobid] Allergy (Verified 09/25/16 23:34) Past Medical History - Past Medical History Cardiac Medical History: Reports: Hx Atrial Fibrillation, Hx Coronary Artery Disease, Hx Hypercholesterolemia, Hx Hypertension Denies: Hx Congestive Heart Failure, Hx DVT, Hx Heart Attack, Hx Pulmonary Embolism Pulmonary Medical History: Reports: Hx Asthma Denies: Hx Bronchitis, Hx COPD, Hx Pneumonia, Hx Sleep Apnea, Hx Tuberculosis Neurological Medical History: Denies: Hx Cerebrovascular Accident, Hx Seizures Endocrine Medical History: Denies: Hx Diabetes Mellitus Type 1, Hx Diabetes Mellitus Type 2, Hx Hyperthyroidism, Hx Hypothyroidism Renal/ Medical History: Denies: Hx End Stage Renal Disease, Hx Kidney Stones, Hx Peritoneal Dialysis GI Medical History: Denies: Hx Cirrhosis, Hx Gastroesophageal Reflux Disease, Hx Hepatitis, Hx Ulcer Musculoskeltal Medical History: Reports Hx Arthritis - R.shoulder , Denies Hx Multiple Sclerosis Psychiatric Medical History: Denies: Hx Bipolar Disorder, Hx Depression, Hx Schizophrenia Infectious Medical History: Denies: Hx C-Diff, Hx Hepatitis, Hx MRSA Past Surgical History: Reports: Hx Cardiac Catheterization - cardiac stents x 2 , Hx Cardiac Surgery - pacemaker, Hx Cholecystectomy, Hx Coronary Stent - x 3; last 2014, Hx Genitourinary Surgery - bladder tac, vaginal mesh, Hx Hysterectomy , Hx Orthopedic Surgery - Right Hip, Hx Pacemaker - Immunizations Hx Diphtheria, Pertussis, Tetanus Vaccination: No Physical Exam - Vital signs Vitals: Temp Pulse Resp BP Pulse Ox 98.2 F 84 20 159/69 H 97 06/03/17 14:40 06/03/17 14:40 06/03/17 14:40 06/03/17 14:40 06/03/17 14:40 Course - Vital Signs Vital signs: Temp Pulse Resp BP Pulse Ox 98.2 F 84 20 159/69 H 97 06/03/17 14:40 06/03/17 14:40 06/03/17 14:40 06/03/17 14:40 06/03/17 14:40
--- NOTE | 2017-06-03 16:21 | ER Document Report ---
ED General - General Chief Complaint: Headache Stated Complaint: VISION PROBLEM Time Seen by Provider: 06/03/17 14:58 Mode of Arrival: Ambulatory Information source: Patient, Relative TRAVEL OUTSIDE OF THE [place] IN LAST 30 DAYS: No - HPI Patient complains to provider of: Blurred vision, headache Onset: Just prior to arrival Onset/Duration: Sudden Quality of pain: Achy Severity: Mild Pain Level: 2 Associated symptoms: Headache Exacerbated by: Denies Relieved by: Denies Notes: Patient is an 86-year-old female presenting to the emergency room complaining of 15-20 minute episode of blurred vision with tingling sensation in her right hand that occurred while she was at dinner just prior to arrival, she reports at time of my evaluation that she has a mild headache, however the other symptoms are completely resolved, she denies any fever, no injury, no weakness of any extremities, no speech difficulties - Related Data Allergies/Adverse Reactions: nitrofurantoin [From Macrobid] Allergy (Verified 09/25/16 23:34) Past Medical History - General Information source: Patient - Social History Smoking Status: Never Smoker Family History: Reviewed & Not Pertinent Patient has suicidal ideation: No Patient has homicidal ideation: No - Past Medical History Cardiac Medical History: Reports: Hx Atrial Fibrillation, Hx Coronary Artery Disease, Hx Hypercholesterolemia, Hx Hypertension Denies: Hx Congestive Heart Failure, Hx DVT, Hx Heart Attack, Hx Pulmonary Embolism Pulmonary Medical History: Reports: Hx Asthma Denies: Hx Bronchitis, Hx COPD, Hx Pneumonia, Hx Sleep Apnea, Hx Tuberculosis Neurological Medical History: Denies: Hx Cerebrovascular Accident, Hx Seizures Endocrine Medical History: Denies: Hx Diabetes Mellitus Type 1, Hx Diabetes Mellitus Type 2, Hx Hyperthyroidism, Hx Hypothyroidism Renal/ Medical History: Denies: Hx End Stage Renal Disease, Hx Kidney Stones, Hx Peritoneal Dialysis GI Medical History: Denies: Hx Cirrhosis, Hx Gastroesophageal Reflux Disease, Hx Hepatitis, Hx Ulcer Musculoskeltal Medical History: Reports Hx Arthritis - R.shoulder , Denies Hx Multiple Sclerosis Psychiatric Medical History: Denies: Hx Bipolar Disorder, Hx Depression, Hx Schizophrenia Infectious Medical History: Denies: Hx C-Diff, Hx Hepatitis, Hx MRSA Past Surgical History: Reports: Hx Cardiac Catheterization - cardiac stents x 2 , Hx Cardiac Surgery - pacemaker, Hx Cholecystectomy, Hx Coronary Stent - x 3; last 2014, Hx Genitourinary Surgery - bladder tac, vaginal mesh, Hx Hysterectomy , Hx Orthopedic Surgery - Right Hip, Hx Pacemaker - Immunizations Hx Diphtheria, Pertussis, Tetanus Vaccination: No Review of Systems - Review of Systems Constitutional: No symptoms reported EENT: Blurred vision Cardiovascular: No symptoms reported Respiratory: No symptoms reported Gastrointestinal: No symptoms reported Genitourinary: No symptoms reported Female Genitourinary: No symptoms reported Musculoskeletal: No symptoms reported Skin: No symptoms reported Hematologic/Lymphatic: No symptoms reported Neurological/Psychological: Tingling -: Yes All other systems reviewed and negative Physical Exam - Vital signs Vitals: Temp Pulse Resp BP Pulse Ox 98.2 F 84 20 159/69 H 97 06/03/17 14:40 06/03/17 14:40 06/03/17 14:40 06/03/17 14:40 06/03/17 14:40 Interpretation: Normal - General General appearance: Appears well, Alert - HEENT Head: Normocephalic, Atraumatic Eyes: Normal Pupils: PERRL - Respiratory Respiratory status: No respiratory distress Chest status: Nontender Breath sounds: Normal Chest palpation: Normal - Cardiovascular Rhythm: Regular Heart sounds: Normal auscultation Murmur: No - Abdominal Inspection: Normal Distension: No distension Bowel sounds: Normal Tenderness: Nontender Organomegaly: No organomegaly - Back Back: Normal, Nontender - Extremities General upper extremity: Normal inspection, Nontender, Normal color, Normal ROM , Normal temperature General lower extremity: Normal inspection, Nontender, Normal color, Normal ROM , Normal temperature, Normal weight bearing. No: Nils's sign - Neurological Neuro grossly intact: Yes Cognition: Normal Orientation: AAOx4 Zachary Coma Scale Eye Opening: Spontaneous Zachary Coma Scale Verbal: Oriented Zachary Coma Scale Motor: Obeys Commands Zachary Coma Scale Total: 15 Speech: Normal Motor strength normal: LUE, RUE, LLE, RLE Sensory: Normal - Psychological Associated symptoms: Normal affect, Normal mood - Skin Skin Temperature: Warm Skin Moisture: Dry Skin Color: Normal Course - Re-evaluation Re-evalutation: 06/03/17 18:11 Patient resting comfortably, reports symptoms are completely resolved including headache, she is ready to go home, symptoms lasted approximately 15-20 minutes and completely resolved, I do not believe they are consistent with a TIA although 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, she is currently on Xarelto and baby aspirin, evaluation in the emergency room is otherwise unremarkable, patient was discharged with instructions for follow-up and advised to return if symptoms worsen, patient and family members at bedside acknowledge understanding and agreement with this plan - Vital Signs Vital signs: Temp Pulse Resp BP Pulse Ox 97.7 F 105 H 20 191/96 H 97 06/03/17 18:43 06/03/17 18:43 06/03/17 18:43 06/03/17 18:43 06/03/17 18:43 - Laboratory Result Diagrams: 06/03/17 17:07 06/03/17 17:07 Laboratory results interpreted by me: 06/03/17 06/03/17 17:07 17:07 RDW 14.6 H Sodium 135.8 L Chloride 97 L Carbon Dioxide 31 H - Diagnostic Test Radiology reviewed: Image reviewed, Reports reviewed - EKG Interpretation by Me Rate: Normal Rhythm: A.Fib When compared to previous EKG there are: No significant change Discharge - Discharge Clinical Impression: Headache Qualifiers: Headache type: unspecified Headache chronicity pattern: acute headache Intractability: not intractable Qualified Code(s): R51 - Headache Condition: Stable Disposition: HOME, SELF-CARE Instructions: Headache ([facility]) Additional Instructions: Follow up with your primary care provider in one to 2 days. Return to the emergency room immediately if symptoms worsen or any additional concerns. Referrals: THUAN ESCOBAR MD [Primary Care Provider] - Follow up as needed
--- NOTE | 2017-06-03 16:40 | RADIOLOGY REPORT (SQ) ---
EXAM DESCRIPTION: CT HEAD WITHOUT COMPLETED DATE/TIME: 06/03/2017 4:05 pm REASON FOR STUDY: barros/blurry vision COMPARISON: CT brain 01/17/2017, 09/25/2016, 03/24/2011 TECHNIQUE: Axial images acquired through the brain without intravenous contrast. Images reviewed wi th bone, brain and subdural windows. Images stored on PACS. All CT scanners at this facility use dose modulation, iterative reconstruction, and/or weight based d osing when appropriate to reduce radiation dose to as low as reasonably achievable (ALARA). [facility]: Dose Right [facility]: CareDose [facility]: Dose Right [facility]: Teradose 4D [facility]: Smart [employer] RADIATION DOSE: Up-to-date CT equipment and radiation dose reduction techniques were employed. CTDIv ol: 64.6 mGy. DLP: 1034 mGy-cm. mGy. LIMITATIONS: None. FINDINGS: VENTRICLES: Normal size and contour. CEREBRUM: No masses. No hemorrhage. No midline shift. No evidence for acute infarction. Mild-to-mo derate patchy low attenuation in the bifrontal and biparietal white matter from small vessel ischemic change. CEREBELLUM: No masses. No hemorrhage. No alteration of density. No evidence for acute infarction. EXTRAAXIAL SPACES: No fluid collections. No masses. ORBITS AND GLOBE: No intra- or extraconal masses. Normal contour of globe without masses. CALVARIUM: No fracture. PARANASAL SINUSES: No fluid or mucosal thickening. SOFT TISSUES: No mass or hematoma. OTHER: No other significant finding. IMPRESSION: Chronic white matter disease. No acute findings. EVIDENCE OF ACUTE STROKE: NO. COMMENT: Quality ID # [id number]: Final reports with documentation of one or more dose reduction techniques (e.g., Automated exposure control, adjustment of the mA and/or kV according to patient size, use of iterative reconstruction technique) TECHNICAL DOCUMENTATION: JOB ID: [id number] [employer]- All Rights Reserved
[2017-06-03] MEDS ORDERED: NORMAL SALINE 1000 ML 1,000 ML IV PRN (16:53)
[2017-06-03] MEDS ORDERED: KETOROLAC TROMETHAMINE INJ/PF 30 MG/1 ML SDV IV ONE (16:53)
[2017-06-03] MEDS ORDERED: ONDANSETRON HCL INJ/PF 4 MG/2 ML SDV IV ONE (16:53)
[2017-06-03 17:00] LABS: APPEARANCE,URINE CLEAR; BILIRUBIN,URINE NEGATIVE (NEGATIVE); GLUCOSE, URINE NEGATIVE (NEGATIVE); KETONES,URINE NEGATIVE (NEGATIVE); LEUKOCYTE ESTERASE,URINE NEGATIVE (NEGATIVE); NITRITE,URINE NEGATIVE (NEGATIVE); PROTEIN,URINE NEGATIVE (NEGATIVE); URINE SPECIFIC GRAVITY 1.006; UROBILINOGEN,URINE NEGATIVE mg/dL (<2.0)
[2017-06-03 17:22] LABS: ABSOLUTE LYMPHOCYTES (AUTO) 1.3 10^3/uL (0.5-4.7); ABSOLUTE MONOCYTES (AUTO) 0.7 10^3/uL (0.1-1.4); BASOPHILS % (AUTO) 0.4 % (0-2); EOSINOPHILS % (AUTO) 0.3 % (0-6); HEMATOCRIT 40.4 % (36.0-47.0); HEMOGLOBIN 13.7 g/dL (12.0-15.5); HGB HCT DIFFERENCE 0.7; LYMPHOCYTES % (AUTO) 15.5 % (13-45); MEAN CORPUSCULAR HEMOGLOBIN 31.7 pg (27.0-33.4); MEAN CORPUSCULAR HGB CONC 33.9 g/dL (32.0-36.0); MEAN CORPUSCULAR VOLUME 94 fl (80-97); MONOCYTES % (AUTO) 9.2 % (3-13); RED BLOOD COUNT 4.32 10^6/uL (3.72-5.28); RED CELL DISTRIBUTION WIDTH 14.6 % (11.5-14.0); SEGMENTED NEUTROPHILS % (AUTO) 74.6 % (42-78); WHITE BLOOD COUNT 8.1 10^3/uL (4.0-10.5)
[2017-06-03 17:32] LABS: ALANINE AMINOTRANSFERASE 36 U/L (9-52); ALBUMIN 3.7 g/dL (3.5-5.0); ALKALINE PHOSPHATASE 97 U/L (38-126); ANION GAP 8 (5-19); ASPARTATE AMINO TRANSFERASE 27 U/L (14-36); BILIRUBIN,DIRECT 0.3 mg/dL (0.0-0.4); BILIRUBIN,TOTAL 0.7 mg/dL (0.2-1.3); BLOOD UREA NITROGEN 19 mg/dL (7-20); CALCIUM 9.3 mg/dL (8.4-10.2); CARBON DIOXIDE 31 mmol/L (22-30); CHLORIDE 97 mmol/L (98-107); CREATININE RESULT 0.62 mg/dL (0.52-1.25); GLUCOSE 91 mg/dL (75-110); SODIUM 135.8 mmol/L (137-145); TOTAL PROTEIN 6.4 g/dL (6.3-8.2)
[2017-06-03 17:35] LABS: PARTIAL THROMBOPLASTIN TIME 32.3 SEC (23.5-35.8); PROTHROMBIN TIME 15.1 SEC (11.4-15.4)
--- NOTE | 2017-06-03 18:30 | EKG REPORT ---
SEVERITY:- ABNORMAL ECG - ATRIAL FIBRILLATION, V-RATE 61-115 : Confirmed by: Dusty Hunter MD 03-Jun-2017 18:30:08
[2017-06-03 18:44] VITALS: BP 191/96
== END 2017-06-03 19:06 | disposition home or self-care (01) ==
LOC: ER 14:21
DX: R51 Headache (principal); H53.8 Other visual disturbances; R20.2 Paresthesia of skin; I25.10 Atherosclerotic heart disease of native coronary artery without angina pectoris; I10 Essential (primary) hypertension; J45.909 Unspecified asthma, uncomplicated; I48.91 Unspecified atrial fibrillation; Z95.5 Presence of coronary angioplasty implant and graft; Z95.0 Presence of cardiac pacemaker; Z86.73 Personal history of transient ischemic attack (TIA), and cerebral infarction without residual deficits; Z79.01 Long term (current) use of anticoagulants; Z79.82 Long term (current) use of aspirin; Z88.1 Allergy status to other antibiotic agents
CPT/HCPCS: 93005; 99284; 96361; 96374; 96375; 36415; 85025; 85610; 85730; 80053; 81001; 84484; 70450; 93010; J1885; J2405; J7030

== ENCOUNTER → 2017-07-09 | Outpatient (CLI) | payer MEDICARE ==
--- NOTE | 2017-07-09 16:33 | XCELERA REPORT ---
[address] [address] Lower Extremity Arterial Evaluation Name: ROBINSON HAMM Age: 86 yrs Gender: Female : 1930 Patient Status: Outpatient Patient Location: Study Date: 07/09/2017 01:06 PM Procedure: A color flow and duplex scan of the lower extremity arteries was performed bilaterally with velocity and waveform analysis. Ankle brachial indicies performed. Reason For Study: PVD Ordering Physician: HENRI JAMA Performed By: Lis Thomas Measurements and Calculations Right Left EATING DISORDER PSYCHOLOGIST PSV 98.7 73.3 cm/sec Prox PFA PSV -63.9 -43.1 cm/sec Prox SFA PSV -62.2 -55.9 cm/sec Mid SFA PSV -58.7 -95.3 cm/sec Dist SFA PSV -76.2 -46.9 cm/sec Prox Pop A PSV 43.0 60.9 cm/sec Dist ARIES PSV 89.5 106.4 cm/sec Prox DATA ENTRY MANAGER PSV 25.6 61.7 cm/sec Dist Sparkle A PSV 70.4 86.4 cm/sec Dheeraj Pedis PSV 83.8 103.7 cm/sec Right Side Arterial Evaluation Normal velocity and triphasic waveforms noted in the Common Femoral artery Biphasic with well;preserved velocity From Femoral to the infrageniculate vessels, except for the Posterior Tibial artery, 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 20-49 % stenosis at the Femoral artery. With sequential disease. Ankle Brachial index,, not obtainable, occluded Posterior Tibial, non compressible Dorsalis Pedis.. 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 Ankle Brachial index,, not obtainable, occluded Posterior Tibial, non compressible Dorsalis Pedis.. Critical Findings Called in to staff at Dr Jama's office at about 1500. Interpretation Summary Moderate hemodynamically significant lesions in the bilateral lower extremities, on duplex imaging, at rest. : HENRI AJMA > Keyshawn Collins
== END ==
LOC: SP 12:43
DX: I73.9 Peripheral vascular disease, unspecified (principal)
CPT/HCPCS: 93925

== ENCOUNTER 2017-08-04 18:58 | Emergency (ER) | payer MEDICARE ==
[2017-08-04 19:05] VITALS: BP 173/81
--- NOTE | 2017-08-04 19:33 | ER Document Report ---
ED General - General Chief Complaint: Leg Injury Stated Complaint: LEG INJURY Time Seen by Provider: 08/04/17 19:30 Mode of Arrival: Ambulatory Information source: Patient Notes: 86 yr old female presents with complaints of skin tear to the left leg after a car door struck it. pt denies any other injuries, she is on eliquiis. pt denies any difficulty ambulating. pt is currently on antibiotics for a toe infection TRAVEL OUTSIDE OF THE [place] IN LAST 30 DAYS: No - HPI Onset: Just prior to arrival Onset/Duration: Sudden Quality of pain: No pain Severity: Mild Pain Level: Denies Associated symptoms: Other Exacerbated by: Denies Relieved by: Denies Similar symptoms previously: No Recently seen / treated by doctor: No - Related Data Allergies/Adverse Reactions: nitrofurantoin [From Macrobid] Allergy (Verified 09/25/16 23:34) Past Medical History - Social History Smoking Status: Never Smoker Cigarette use (# per day): No Chew tobacco use (# tins/day): No Smoking Education Provided: No Frequency of alcohol use: None Drug Abuse: None Family History: Reviewed & Not Pertinent Patient has suicidal ideation: No Patient has homicidal ideation: No - Past Medical History Cardiac Medical History: Reports: Hx Atrial Fibrillation, Hx Coronary Artery Disease, Hx Hypercholesterolemia, Hx Hypertension Denies: Hx Congestive Heart Failure, Hx DVT, Hx Heart Attack, Hx Pulmonary Embolism Pulmonary Medical History: Reports: Hx Asthma Denies: Hx Bronchitis, Hx COPD, Hx Pneumonia, Hx Sleep Apnea, Hx Tuberculosis Neurological Medical History: Denies: Hx Cerebrovascular Accident, Hx Seizures Endocrine Medical History: Denies: Hx Diabetes Mellitus Type 1, Hx Diabetes Mellitus Type 2, Hx Hyperthyroidism, Hx Hypothyroidism Renal/ Medical History: Denies: Hx End Stage Renal Disease, Hx Kidney Stones, Hx Peritoneal Dialysis GI Medical History: Denies: Hx Cirrhosis, Hx Gastroesophageal Reflux Disease, Hx Hepatitis, Hx Ulcer Musculoskeltal Medical History: Reports Hx Arthritis - R.shoulder , Denies Hx Multiple Sclerosis Psychiatric Medical History: Denies: Hx Bipolar Disorder, Hx Depression, Hx Schizophrenia Infectious Medical History: Denies: Hx C-Diff, Hx Hepatitis, Hx MRSA Past Surgical History: Reports: Hx Cardiac Catheterization - cardiac stents x 2 , Hx Cardiac Surgery - pacemaker, Hx Cholecystectomy, Hx Coronary Stent - x 3; last 2014, Hx Genitourinary Surgery - bladder tac, vaginal mesh, Hx Hysterectomy , Hx Orthopedic Surgery - Right Hip, Hx Pacemaker - Immunizations Hx Diphtheria, Pertussis, Tetanus Vaccination: No Review of Systems - Review of Systems Notes: REVIEW OF SYSTEMS: CONSTITUTIONAL : Denies fever, chills, or sweats. Denies recent illness. EENT: Denies eye, ear, throat, or mouth pain or symptoms. Denies nasal or sinus congestion or discharge. Denies throat, tongue, or mouth swelling or difficulty swallowing. CARDIOVASCULAR: Denies chest pain. Denies palpitations or racing or irregular heart beat. Denies ankle edema. RESPIRATORY: Denies cough, cold, or chest congestion. Denies shortness of breath, difficulty breathing, or wheezing. GASTROINTESTINAL: Denies abdominal pain or distention. Denies nausea, vomiting , or diarrhea. Denies blood in vomitus, stools, or per rectum. Denies black, tarry stools. Denies constipation. GENITOURINARY: Denies difficulty urinating, painful urination, burning, frequency, blood in urine, or discharge. FEMALE GENITOURINARY: Denies vaginal bleeding, heavy or abnormal periods, irregular periods. Denies vaginal discharge or odor. MUSCULOSKELETAL: Denies back or neck pain or stiffness. Denies joint pain or swelling. SKIN: admits to skin tear HEMATOLOGIC : admits ot easy bleeding LYMPHATIC: Denies swollen, enlarged glands. NEUROLOGICAL: Denies confusion or altered mental status. Denies passing out or loss of consciousness. Denies dizziness or lightheadedness. Denies headache. Denies weakness or paralysis or loss of use of either side. Denies problems with gait or speech. Denies sensory loss, numbness, or tingling. Denies seizures. PSYCHIATRIC: Denies anxiety or stress. Denies depression, suicidal ideation, or homicidal ideation. ALL OTHER SYSTEMS REVIEWED AND NEGATIVE. PHYSICAL EXAMINATION: GENERAL: Well-appearing, well-nourished and in no acute distress. HEAD: Atraumatic, normocephalic. EYES: Pupils equal round and reactive to light, extraocular movements intact, conjunctiva are normal. ENT: Nares patent, oropharynx clear without exudates. Moist mucous membranes. NECK: Normal range of motion, supple without lymphadenopathy LUNGS: Breath sounds clear to auscultation bilaterally and equal. No wheezes rales or rhonchi. HEART: Regular rate and rhythm without murmurs ABDOMEN: Soft, nontender, nondistended abdomen. No guarding, no rebound. No masses appreciated. Female : deferred Musculoskeletal: Normal range of motion, no pitting or edema. No cyanosis. NEUROLOGICAL: Cranial nerves grossly intact. Normal speech, normal gait. Normal sensory, motor exams PSYCH: Normal mood, normal affect. SKIN: skin tear of the elft bautista with mild oozing, no arterial bleeding Dictation was performed using [employer] voice recognition software Physical Exam - Vital signs Vitals: Temp Pulse Resp BP Pulse Ox 97.8 F 86 16 173/81 H 98 08/04/17 19:01 08/04/17 19:01 08/04/17 19:08/04/17 19:01 08/04/17 19:01 Course - Re-evaluation Re-evalutation: 08/04/17 20:01 after cleaning the area, the wound was Steri-Stripped together, a quick clot was placed over and bandaged. Very strict return precautions have been provided to the family I explained concerns for infectious process and patient is already on antibiotics After performing a Medical Screening Examination, I estimate there is LOW risk for OPEN FRACTURE, COMPARTMENT SYNDROME, TENDON RUPTURE, ACUTE NEUROVASCULAR INJURY, or RETAINED FOREIGN BODY, thus I consider the discharge disposition reasonable. Also, there is no evidence or peritonitis, sepsis, or toxicity. I have reevaluated this patient multiple times and no significant life threatening changes are noted. The patient and I have discussed the diagnosis and risks, and we agree with discharging home with close follow-up with the understanding that symptoms and presentations can change. We also discussed returning to the Emergency Department immediately if new or worsening symptoms occur. We have discussed the symptoms which are most concerning (e.g., changing or worsening pain, fever, numbness, weakness, cool or painful digits) that necessitate immediate return. - Vital Signs Vital signs: Temp Pulse Resp BP Pulse Ox 97.8 F 86 16 173/81 H 98 08/04/17 19:01 08/04/17 19:01 08/04/17 19:01 08/04/17 19:01 08/04/17 19:01 Discharge - Discharge Clinical Impression: Skin tear Leg injury Qualifiers: Encounter type: initial encounter Laterality: left Qualified Code(s): S89.92XA - Unspecified injury of left lower leg, initial encounter Condition: Stable Disposition: HOME, SELF-CARE Instructions: Skin Tear ([facility]) Additional Instructions: Please return immediately if there is any sign of infection or any other concerns
== END 2017-08-04 20:14 | disposition home or self-care (01) ==
LOC: ER 18:58
DX: S81.812A Laceration without foreign body, left lower leg, initial encounter (principal); W22.8XXA Striking against or struck by other objects, initial encounter; I48.91 Unspecified atrial fibrillation; I25.10 Atherosclerotic heart disease of native coronary artery without angina pectoris; E78.00 Pure hypercholesterolemia, unspecified; I10 Essential (primary) hypertension; Z79.02 Long term (current) use of antithrombotics/antiplatelets
CPT/HCPCS: 99282

== ENCOUNTER 2017-08-30 12:48 | Emergency (ER) | payer MEDICARE ==
--- NOTE | 2017-08-30 13:33 | ER Document Report ---
ED Medical Screen (RME) - General Chief Complaint: High Blood Pressure Stated Complaint: BLOOD PRESSURE ISSUES Time Seen by Provider: 08/30/17 13:29 Notes: Patient states that she has lower extremity pain and has had a chronic wound since July on her lower externally. She also states her blood pressures been very high. She had she has had some headaches. TRAVEL OUTSIDE OF THE [place] IN LAST 30 DAYS: No - Related Data Allergies/Adverse Reactions: nitrofurantoin [From Macrobid] Allergy (Verified 09/25/16 23:34) Home Medications: Current Home Medications Lisinopril [Lisinopril] 1 tab PO DAILY 08/30/17 [History] Sertraline HCl [Sertraline HCl] 1 tab PO DAILY 08/30/17 [History] Past Medical History - Past Medical History Cardiac Medical History: Reports: Hx Atrial Fibrillation, Hx Coronary Artery Disease, Hx Hypercholesterolemia, Hx Hypertension Denies: Hx Congestive Heart Failure, Hx DVT, Hx Heart Attack, Hx Pulmonary Embolism Pulmonary Medical History: Reports: Hx Asthma Denies: Hx Bronchitis, Hx COPD, Hx Pneumonia, Hx Sleep Apnea, Hx Tuberculosis Neurological Medical History: Denies: Hx Cerebrovascular Accident, Hx Seizures Endocrine Medical History: Denies: Hx Diabetes Mellitus Type 1, Hx Diabetes Mellitus Type 2, Hx Hyperthyroidism, Hx Hypothyroidism Renal/ Medical History: Denies: Hx End Stage Renal Disease, Hx Kidney Stones, Hx Peritoneal Dialysis GI Medical History: Denies: Hx Cirrhosis, Hx Gastroesophageal Reflux Disease, Hx Hepatitis, Hx Ulcer Musculoskeltal Medical History: Reports Hx Arthritis - R.shoulder , Denies Hx Multiple Sclerosis Psychiatric Medical History: Denies: Hx Bipolar Disorder, Hx Depression, Hx Schizophrenia Infectious Medical History: Denies: Hx C-Diff, Hx Hepatitis, Hx MRSA Past Surgical History: Reports: Hx Cardiac Catheterization - cardiac stents x 2 , Hx Cardiac Surgery - pacemaker, Hx Cholecystectomy, Hx Coronary Stent - x 3; last 2014, Hx Genitourinary Surgery - bladder tac, vaginal mesh, Hx Hysterectomy , Hx Orthopedic Surgery - Right Hip, Hx Pacemaker - Immunizations Hx Diphtheria, Pertussis, Tetanus Vaccination: No Physical Exam - Vital signs Vitals: Temp Pulse Resp BP Pulse Ox 98.0 F 113 H 18 157/113 H 95 08/30/17 12:59 08/30/17 12:59 08/30/17 12:59 08/30/17 12:59 08/30/17 12:59 Course - Vital Signs Vital signs: Temp Pulse Resp BP Pulse Ox 98.0 F 113 H 18 157/113 H 95 08/30/17 12:59 08/30/17 12:59 08/30/17 12:59 08/30/17 12:59 08/30/17 12:59
[2017-08-30 14:17] LABS: VENOUS BLOOD BASE EXCESS 2.9 mmol/L; VENOUS BLOOD HCO3 28.5 mmol/L (20-32); VENOUS BLOOD PCO2 47.9 mmHg (35-63); VENOUS BLOOD PH 7.39 (7.30-7.42)
[2017-08-30 14:19] LABS: ABSOLUTE BASOPHILS # (AUTO) 0.1 10^3/uL (0.0-0.2); ABSOLUTE EOSINOPHILS # (AUTO) 0.1 10^3/uL (0.0-0.6); ABSOLUTE LYMPHOCYTES (AUTO) 1.2 10^3/uL (0.5-4.7); ABSOLUTE MONOCYTES (AUTO) 0.6 10^3/uL (0.1-1.4); ABSOLUTE NEUT (AUTO) 5.6 10^3/uL (1.7-8.2); BASOPHILS % (AUTO) 0.8 % (0-2); EOSINOPHILS % (AUTO) 0.8 % (0-6); HEMATOCRIT 40.1 % (36.0-47.0); HEMOGLOBIN 13.3 g/dL (12.0-15.5); HGB HCT DIFFERENCE -0.2; LYMPHOCYTES % (AUTO) 16.4 % (13-45); MEAN CORPUSCULAR HEMOGLOBIN 30.5 pg (27.0-33.4); MEAN CORPUSCULAR HGB CONC 33.1 g/dL (32.0-36.0); MEAN CORPUSCULAR VOLUME 92 fl (80-97); MONOCYTES % (AUTO) 8.1 % (3-13); RED BLOOD COUNT 4.35 10^6/uL (3.72-5.28); SEGMENTED NEUTROPHILS % (AUTO) 73.9 % (42-78); WHITE BLOOD COUNT 7.6 10^3/uL (4.0-10.5)
[2017-08-30 14:38] LABS: ALANINE AMINOTRANSFERASE 116 U/L (9-52); ALBUMIN 3.9 g/dL (3.5-5.0); ALKALINE PHOSPHATASE 174 U/L (38-126); ANION GAP 11 (5-19); ASPARTATE AMINO TRANSFERASE 81 U/L (14-36); BILIRUBIN,DIRECT 0.2 mg/dL (0.0-0.4); BILIRUBIN,TOTAL 0.7 mg/dL (0.2-1.3); BLOOD UREA NITROGEN 12 mg/dL (7-20); CALCIUM 9.6 mg/dL (8.4-10.2); CARBON DIOXIDE 28 mmol/L (22-30); CHLORIDE 103 mmol/L (98-107); CREATININE RESULT 0.63 mg/dL (0.52-1.25); GLUCOSE 101 mg/dL (75-110); POTASSIUM 3.9 mmol/L (3.6-5.0); SODIUM 142.2 mmol/L (137-145); TOTAL PROTEIN 6.6 g/dL (6.3-8.2)
[2017-08-30 14:51] LABS: APPEARANCE,URINE CLEAR; BILIRUBIN,URINE NEGATIVE (NEGATIVE); GLUCOSE, URINE NEGATIVE (NEGATIVE); KETONES,URINE NEGATIVE (NEGATIVE); LEUKOCYTE ESTERASE,URINE NEGATIVE (NEGATIVE); NITRITE,URINE NEGATIVE (NEGATIVE); PROTEIN,URINE NEGATIVE (NEGATIVE); URINE SPECIFIC GRAVITY 1.009; UROBILINOGEN,URINE NEGATIVE mg/dL (<2.0)
[2017-08-30] MEDS ORDERED: METOPROLOL TARTRATE 25 MG TABLET PO ONE (17:06)
[2017-08-30 17:52] VITALS: BP 165/100
--- NOTE | 2017-08-30 17:56 | ER Document Report ---
ED Blood Pressure Problem - General Chief Complaint: High Blood Pressure Stated Complaint: BLOOD PRESSURE ISSUES Time Seen by Provider: 08/30/17 13:29 Notes: Patient is a 86 year old female who presents to the ED complaining of elevated BP but she is not able to tell me what her baseline is. She admits to frontal headache without vision changes, associated weakness or focal neurological deficits. States it is a slight frontal throbbing that is a 2/5 in severity. denies and fall or head trauma, AMS, lethargy or confusion, with at the bed side to confirm. She states that she takes Metoprolol 200mg ER and Lisinopril 20mg daily as well as lasix as needed for elevated BP and lower extremity edema. She did take her AM dose of lisinopril as well as a repeat dose at 1130am. She also states that she has lower extremity pain and has had a chronic wound since July on her lower externally. She completed PO ABX approximately 10 days ago. She followed up with Dr. Lynch on Wednesday of last week who told her she did not need to continue taking antibiotics and to follow- up with him again. PMH: CAD with stenst x3 most recently via cath 1.5 years ago on xarelto, pacemaker TRAVEL OUTSIDE OF THE [place] IN LAST 30 DAYS: No - Related Data Allergies/Adverse Reactions: nitrofurantoin [From Macrobid] Allergy (Verified 09/25/16 23:34) Home Medications: Current Home Medications Lisinopril [Lisinopril] 1 tab PO DAILY 08/30/17 [History] Sertraline HCl [Sertraline HCl] 1 tab PO DAILY 08/30/17 [History] Past Medical History - Social History Smoking Status: Never Smoker Frequency of alcohol use: None Drug Abuse: None Family History: Reviewed & Not Pertinent Patient has suicidal ideation: No Patient has homicidal ideation: No - Past Medical History Cardiac Medical History: Reports: Hx Atrial Fibrillation, Hx Coronary Artery Disease, Hx Hypercholesterolemia, Hx Hypertension Denies: Hx Congestive Heart Failure, Hx DVT, Hx Heart Attack, Hx Pulmonary Embolism Pulmonary Medical History: Reports: Hx Asthma Denies: Hx Bronchitis, Hx COPD, Hx Pneumonia, Hx Sleep Apnea, Hx Tuberculosis Neurological Medical History: Denies: Hx Cerebrovascular Accident, Hx Seizures Endocrine Medical History: Denies: Hx Diabetes Mellitus Type 1, Hx Diabetes Mellitus Type 2, Hx Hyperthyroidism, Hx Hypothyroidism Renal/ Medical History: Denies: Hx End Stage Renal Disease, Hx Kidney Stones, Hx Peritoneal Dialysis GI Medical History: Denies: Hx Cirrhosis, Hx Gastroesophageal Reflux Disease, Hx Hepatitis, Hx Ulcer Musculoskeltal Medical History: Reports Hx Arthritis - R.shoulder , Denies Hx Multiple Sclerosis Psychiatric Medical History: Denies: Hx Bipolar Disorder, Hx Depression, Hx Schizophrenia Infectious Medical History: Denies: Hx C-Diff, Hx Hepatitis, Hx MRSA Past Surgical History: Reports: Hx Cardiac Catheterization - cardiac stents x 2 , Hx Cardiac Surgery - pacemaker, Hx Cholecystectomy, Hx Coronary Stent - x 3; last 2014, Hx Genitourinary Surgery - bladder tac, vaginal mesh, Hx Hysterectomy , Hx Orthopedic Surgery - Right Hip, Hx Pacemaker - Immunizations Hx Diphtheria, Pertussis, Tetanus Vaccination: No Review of Systems - Review of Systems Constitutional: No symptoms reported EENT: No symptoms reported Cardiovascular: No symptoms reported Respiratory: No symptoms reported Gastrointestinal: No symptoms reported Musculoskeletal: No symptoms reported Neurological/Psychological: See HPI -: Yes All other systems reviewed and negative Physical Exam - Vital signs Vitals: Temp Pulse Resp BP Pulse Ox 98.0 F 113 H 18 157/113 H 95 08/30/17 12:59 08/30/17 12:59 08/30/17 12:59 08/30/17 12:59 08/30/17 12:59 - General General appearance: Appears well, Alert In distress: None - Respiratory Respiratory status: No respiratory distress Chest status: Nontender Breath sounds: Normal Chest palpation: Normal - Cardiovascular Rhythm: Regular Heart sounds: Normal auscultation, S1 appreciated, S2 appreciated Gallop: None auscultated Pulses: Normal: Radial, Dorsalis pedis Normal capillary refill: Yes - Abdominal Inspection: Normal Distension: No distension Bowel sounds: Normal Tenderness: Nontender Organomegaly: No organomegaly - Extremities General upper extremity: Normal inspection, Nontender, Normal color, Normal ROM , Normal strength, Normal temperature, Other General lower extremity: Normal color, Normal ROM, Normal strength, Normal temperature, Normal weight bearing - Neurological Neuro grossly intact: Yes Cognition: Normal Orientation: AAOx4 [place] Coma Scale Eye Opening: Spontaneous [place] Coma Scale Verbal: Oriented Zachary Coma Scale Motor: Obeys Commands Frank[place] Coma Scale Total: 15 Speech: Normal Cranial nerves: Normal. No: Facial palsy, Gaze palsy, Sensory deficit, Tongue deviation Cerebellar coordination: Normal, Heel-bautista. 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 No: Pronator drift, Weakness, Hemiplegia Sensory: Normal - Skin Skin Temperature: Warm Skin Moisture: Dry Skin Color: Normal Skin Turgor: Loose Skin irregularity: other - left anteriolateral midshaft tib is a chronic wound involving the dermis measuring approx 5cm in length and 3cm wide without active bleeding Course - Re-evaluation Re-evalutation: 08/30/17 18:37 Patient does not have any focal neurologic deficits, nuchal rigidity, vital signs are within normal limits no papilledema. Patient is otherwise no acute distress and hemodynamically stable. Low index for suspicion of acute subarachnoid hemorrhage, meningitis or mass. Low suspicion for acute life- threatening etiology with intact neuro exam therefore no additional imaging or laboratory testing is indicated. Will discharge patient home with strict follow -up with PCP for blood pressure check within the next week. Regarding patient' s chronic wound on her left bautista there is no evidence of surrounding cellulitis , induration, purulent drainage. Discussed with patient to continue dressing changes as scheduled at home and to follow-up with her primary care regarding wound care. Patient agrees with plan and is requesting to be discharged home. - Vital Signs Vital signs: Temp Pulse Resp BP Pulse Ox 98.1 F 91 16 165/100 H 96 08/30/17 18:10 08/30/17 18:10 08/30/17 18:10 08/30/17 17:46 08/30/17 18:10 - Laboratory Result Diagrams: 08/30/17 14:02 08/30/17 14:02 Laboratory results interpreted by me: 08/30/17 14:02 AST 81 H ALT 116 H Alkaline Phosphatase 174 H Discharge - Discharge Clinical Impression: HTN (hypertension) Headache Qualifiers: Headache type: unspecified Condition: Good Disposition: HOME, SELF-CARE Instructions: High Blood Pressure ([facility]) Additional Instructions: Please take your home dose of metoprolol when you get home. Otherwise please take your Lasix as directed on your home prescription. Please follow-up with Dr. Holland tomorrow. Please return to the emergency department with any worsening headache, loss of vision, inability to talk, swallow, any numbness or weakness, chest pain Referrals: THUAN ESCOBAR MD [Primary Care Provider] - Follow up tomorrow
== END 2017-08-30 18:11 | disposition home or self-care (01) ==
LOC: ER 12:48
DX: I10 Essential (primary) hypertension (principal); R51 Headache; R60.0 Localized edema; M79.606 Pain in leg, unspecified; I25.10 Atherosclerotic heart disease of native coronary artery without angina pectoris; I48.91 Unspecified atrial fibrillation; J45.909 Unspecified asthma, uncomplicated; Z95.5 Presence of coronary angioplasty implant and graft; Z95.0 Presence of cardiac pacemaker; Z79.899 Other long term (current) drug therapy; Z79.01 Long term (current) use of anticoagulants; Z88.1 Allergy status to other antibiotic agents
CPT/HCPCS: 99284; 36415; 87040; 87086; 85025; 80053; 81001; 82803; 83605; A9270

== ENCOUNTER 2017-11-24 07:09 | Emergency (ER) | payer MEDICARE ==
--- NOTE | 2017-11-24 07:33 | ER Document Report ---
ED Fall - General Chief Complaint: Fall Stated Complaint: FALL/HEAD PAIN Time Seen by Provider: 11/24/17 07:30 Notes: The patient is an 87-year-old female, past medical history hypertension, A. fib , pacemaker, presents after 2 mechanical falls where she hit her head and landed on her right hip and right ankle. She said she slipped in the laundry room this morning. Patient denies headache, neck pain, chest pain, shortness of breath, LOC, open wounds, numbness, tingling, abdominal pain, back pain or urinary symptoms. TRAVEL OUTSIDE OF THE [place] IN LAST 30 DAYS: No - Related data Allergies/Adverse Reactions: nitrofurantoin [From Macrobid] Allergy (Verified 09/25/16 23:34) Past Medical History - General Information source: Patient - Social History Smoking Status: Unknown if Ever Smoked Family History: Reviewed & Not Pertinent - Past Medical History Cardiac Medical History: Reports: Hx Atrial Fibrillation, Hx Coronary Artery Disease, Hx Hypercholesterolemia, Hx Hypertension Denies: Hx Congestive Heart Failure, Hx DVT, Hx Heart Attack, Hx Pulmonary Embolism Pulmonary Medical History: Reports: Hx Asthma Denies: Hx Bronchitis, Hx COPD, Hx Pneumonia, Hx Sleep Apnea, Hx Tuberculosis Neurological Medical History: Denies: Hx Cerebrovascular Accident, Hx Seizures Endocrine Medical History: Denies: Hx Diabetes Mellitus Type 1, Hx Diabetes Mellitus Type 2, Hx Hyperthyroidism, Hx Hypothyroidism Renal/ Medical History: Denies: Hx End Stage Renal Disease, Hx Kidney Stones, Hx Peritoneal Dialysis GI Medical History: Denies: Hx Cirrhosis, Hx Gastroesophageal Reflux Disease, Hx Hepatitis, Hx Ulcer Musculoskeltal Medical History: Reports Hx Arthritis - R.shoulder , Denies Hx Multiple Sclerosis Psychiatric Medical History: Denies: Hx Bipolar Disorder, Hx Depression, Hx Schizophrenia Infectious Medical History: Denies: Hx C-Diff, Hx Hepatitis, Hx MRSA Past Surgical History: Reports: Hx Cardiac Catheterization - cardiac stents x 2 , Hx Cardiac Surgery - pacemaker, Hx Cholecystectomy, Hx Coronary Stent - x 3; last 2014, Hx Genitourinary Surgery - bladder tac, vaginal mesh, Hx Hysterectomy , Hx Orthopedic Surgery - Right Hip, Hx Pacemaker - Immunizations Hx Diphtheria, Pertussis, Tetanus Vaccination: No Review of Systems - Review of Systems Notes: REVIEW OF SYSTEMS: CONSTITUTIONAL: -fevers, -chills EENT: -eye pain, -difficulty swallowing, -nasal congestion CARDIOVASCULAR: -chest pain, -syncope. RESPIRATORY: -cough, -SOB GASTROINTESTINAL: -abdominal pain, -nausea, -vomiting, -diarrhea GENITOURINARY: -dysuria, -hematuria MUSCULOSKELETAL: -back pain, -neck pain, +right hip and ankle pain SKIN: -rash or skin lesions. HEMATOLOGIC: -easy bruising or bleeding. LYMPHATIC: -swollen, enlarged glands. NEUROLOGICAL: -altered mental status or loss of consciousness, -headache, - neurologic symptoms PSYCHIATRIC: -anxiety, -depression. ALL OTHER SYSTEMS REVIEWED AND NEGATIVE. Physical Exam - Notes Notes: PHYSICAL EXAMINATION: GENERAL: Well-appearing, well-nourished and in no acute distress. HEAD: Atraumatic, normocephalic. EYES: Pupils equal round and reactive to light, extraocular movements intact, sclera anicteric, conjunctiva are normal. ENT: nares patent, oropharynx clear without exudates. Moist mucous membranes. NECK: Normal range of motion, supple without lymphadenopathy LUNGS: Breath sounds clear to auscultation bilaterally and equal. No wheezes rales or rhonchi. HEART: Regular rate and rhythm without murmurs ABDOMEN: Soft, nontender, normoactive bowel sounds. No guarding, no rebound. No masses appreciated. EXTREMITIES: Tenderness over right anterior hip and right lateral ankle. Normal range of motion, no pitting or edema. No cyanosis. NEUROLOGICAL: Cranial nerves grossly intact. Normal speech, normal gait. Normal sensory and motor exams. PSYCH: Normal mood, normal affect. SKIN: Warm, Dry, normal turgor, no rashes or lesions noted. Course - Re-evaluation Re-evalutation: Patient appears well is in no acute distress. Her CT head, right hip x-ray and right ankle x-ray did not show any acute fractures or head bleeds. It does show a small ankle effusion. Rest of blood work is unremarkable. She says that this was strictly a mechanical fall and she did not have LOC. No syncope. Instructed her about contusion management and given very strict return precautions. - Laboratory Result Diagrams: 11/24/17 07:30 11/24/17 07:30 Laboratory results interpreted by me: 11/24/17 11/24/17 07:30 07:30 RDW 17.3 H Lymphocytes % 11.1 L Monocytes % 14.4 H Potassium 3.4 L AST 52 H - Diagnostic Test Radiology reviewed: Image reviewed, Reports reviewed Radiology results interpreted by me: CT Head: NAD Right hip x-ray: NAD Right ankle x-ray: Small tibiotalar ankle joint effusion. No acute fracture or malalignment. - EKG Interpretation by Me EKG shows normal: Intervals, QRS Complexes Rate: Normal Rhythm: A.Fib Additional EKG results interpreted by me: No STEMI Discharge - Discharge Clinical Impression: Head injury Qualifiers: Encounter type: initial encounter Qualified Code(s): S09.90XA - Unspecified injury of head, initial encounter Ankle sprain Qualifiers: Encounter type: initial encounter Involved ligament of ankle: unspecified ligament Laterality: right Qualified Code(s): S93.401A - Sprain of unspecified ligament of right ankle, initial encounter Contusion Qualifiers: Encounter type: initial encounter Contusion area: hip Laterality: right Qualified Code(s): S70.01XA - Contusion of right hip, initial encounter Fall Qualifiers: Encounter type: initial encounter Qualified Code(s): W19.XXXA - Unspecified fall, initial encounter Condition: Stable Disposition: HOME, SELF-CARE Additional Instructions: Contusion Your injury has resulted in a contusion -- a crushing of the deep tissues. No injury to important structures was detected during the physician's exam. Contusions vary in the amount of pain they cause, and in the length of time required for healing. Typically, the area will become bruised, and will remain painful to touch for two or three weeks. However, most patients are back to working and playing within a few days. After the initial period of rest and cold-packs, your symptoms (together with the doctor's recommendations) will determine how rapidly you can get back to full activity. Usually this means "do what feels okay, but don't do things that hurt." If re-examination was recommended, it's important to follow up as instructed. Call the doctor or return any time if pain increases, if swelling becomes severe, if you develop numbness or weakness in an injured extremity, or if any other alarming symptoms occur. Forms: Elevated Blood Pressure Referrals: THUAN ESCOBAR MD [Primary Care Provider] - Follow up as needed
[2017-11-24 07:47] LABS: ABSOLUTE LYMPHOCYTES (AUTO) 0.8 10^3/uL (0.5-4.7); BASOPHILS % (AUTO) 0.3 % (0-2); HEMATOCRIT 41.2 % (36.0-47.0); HEMOGLOBIN 13.6 g/dL (12.0-15.5); LYMPHOCYTES % (AUTO) 11.1 % (13-45); MEAN CORPUSCULAR HEMOGLOBIN 29.2 pg (27.0-33.4); MEAN CORPUSCULAR HGB CONC 33.1 g/dL (32.0-36.0); MEAN CORPUSCULAR VOLUME 88 fl (80-97); MONOCYTES % (AUTO) 14.4 % (3-13); PLATELET COUNT 162 10^3/uL (150-450); RED BLOOD COUNT 4.67 10^6/uL (3.72-5.28); RED CELL DISTRIBUTION WIDTH 17.3 % (11.5-14.0); SEGMENTED NEUTROPHILS % (AUTO) 74.2 % (42-78); TOTAL CELLS COUNTED % (AUTO) 100 %; WHITE BLOOD COUNT 6.8 10^3/uL (4.0-10.5)
[2017-11-24 08:04] LABS: ALANINE AMINOTRANSFERASE 52 U/L (9-52); ALBUMIN 3.9 g/dL (3.5-5.0); ALKALINE PHOSPHATASE 122 U/L (38-126); ANION GAP 9 (5-19); ASPARTATE AMINO TRANSFERASE 52 U/L (14-36); BILIRUBIN,DIRECT 0.4 mg/dL (0.0-0.4); BILIRUBIN,TOTAL 0.7 mg/dL (0.2-1.3); BLOOD UREA NITROGEN 14 mg/dL (7-20); CALCIUM 9.1 mg/dL (8.4-10.2); CARBON DIOXIDE 29 mmol/L (22-30); CHLORIDE 100 mmol/L (98-107); GLUCOSE 102 mg/dL (75-110); POTASSIUM 3.4 mmol/L (3.6-5.0); SODIUM 137.6 mmol/L (137-145); TOTAL PROTEIN 7.1 g/dL (6.3-8.2)
--- NOTE | 2017-11-24 08:06 | RADIOLOGY REPORT (SQ) ---
EXAM DESCRIPTION: CT HEAD WITHOUT COMPLETED DATE/TIME: 11/24/2017 7:49 am REASON FOR STUDY: fall, head injury COMPARISON: CT brain 03/24/2011, 09/25/2016, 01/17/2017, 06/03/2017 TECHNIQUE: Axial images acquired through the brain without intravenous contrast. Images reviewed wi th bone, brain and subdural windows. Images stored on PACS. All CT scanners at this facility use dose modulation, iterative reconstruction, and/or weight based d osing when appropriate to reduce radiation dose to as low as reasonably achievable (ALARA). [facility]: Dose Right [facility]: CareDose [facility]: Dose Right [facility]: Teradose 4D [facility]: Smart [employer] RADIATION DOSE: CT Rad equipment meets quality standard of care and radiation dose reduction techniq ues were employed. CTDIvol: 64.6 mGy. DLP: 1034 mGy-cm. mGy. LIMITATIONS: None. FINDINGS: VENTRICLES: Normal size and contour. CEREBRUM: There is chronic small vessel ischemic change, with low attenuation in the bifrontal and bi parietal deep periventricular white matter, and multiple tiny lacunar infarcts in the basal ganglia a nd thalami. No CT evidence of acute large territory ischemic change, acute intracranial hemorrhage, mass effect, or midline shift CEREBELLUM: No masses. No hemorrhage. No alteration of density. No evidence for acute infarction. EXTRAAXIAL SPACES: No fluid collections. No masses. ORBITS AND GLOBE: No intra- or extraconal masses. Normal contour of globe without masses. CALVARIUM: No fracture. PARANASAL SINUSES: No fluid or mucosal thickening. SOFT TISSUES: No mass or hematoma. OTHER: No other significant finding. IMPRESSION: No acute findings. Stable chronic small vessel ischemic change EVIDENCE OF ACUTE STROKE: NO. COMMENT: Quality ID # [id number]: Final reports with documentation of one or more dose reduction techniques (e.g., Automated exposure control, adjustment of the mA and/or kV according to patient size, use of iterative reconstruction technique) TECHNICAL DOCUMENTATION: JOB ID: [id number] [employer]- All Rights Reserved Reading location - IP/workstation name: [email or web address]
--- NOTE | 2017-11-24 08:11 | RADIOLOGY REPORT (SQ) ---
EXAM DESCRIPTION: ANKLE RIGHT COMPLETE COMPLETED DATE/TIME: 11/24/2017 8:02 am REASON FOR STUDY: fal, injury COMPARISON: None. NUMBER OF VIEWS: Three views. TECHNIQUE: AP, lateral, and oblique radiographic images acquired of the right ankle. LIMITATIONS: None. FINDINGS: MINERALIZATION: Osteopenic BONES: No acute fracture or dislocation. Small plantar and dorsal calcaneal spurs No worrisome bone lesions. JOINTS: Small tibiotalar joint effusion. No disruption of the ankle mortise SOFT TISSUES: No soft tissue swelling. No foreign body. OTHER: No other significant finding. IMPRESSION: The tibiotalar ankle joint effusion. No acute fracture or malalignment. TECHNICAL DOCUMENTATION: JOB ID: [id number] [employer]- All Rights Reserved Reading location - IP/workstation name: [email or web address]
--- NOTE | 2017-11-24 08:13 | RADIOLOGY REPORT (SQ) ---
EXAM DESCRIPTION: HIP RIGHT AP/LATERAL COMPLETED DATE/TIME: 11/24/2017 8:02 am REASON FOR STUDY: fal, injury COMPARISON: [facility] 03/29/2014 NUMBER OF VIEWS: Two views. TECHNIQUE: AP pelvis and additional frog-leg view of the right hip. LIMITATIONS: None. 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 No bone cement. G ood alignment. No fracture. LEFT HIP: Advanced osteoarthritis with high-grade left hip joint space narrowing, [id number] appear ance, femoral head and acetabular rim sclerosis. No fracture. PUBIS AND ISCHIUM: No fracture. PELVIS: No fracture. SACRUM: No gross displaced fracture LOWER LUMBAR SPINE: No fracture or dislocation. No worrisome bone lesions. No significant disc disea se. SOFT TISSUES: No findings. OTHER: No other significant finding. IMPRESSION: No acute fracture or malalignment. Right hip replacement. Advanced osteoarthritis left hip TECHNICAL DOCUMENTATION: JOB ID: [id number] [employer]- All Rights Reserved Reading location - IP/workstation name: [email or web address]
--- NOTE | 2017-11-24 08:16 | EKG REPORT ---
SEVERITY:- ABNORMAL ECG - ATRIAL FIBRILLATION, V-RATE 77-[address]-T INFEROLATERAL CHANGES : Confirmed by: Dusty Hunter MD 24-Nov-2017 08:15:53
[2017-11-24 08:43] VITALS: BP 156/74
== END 2017-11-24 08:51 | disposition home or self-care (01) ==
LOC: ER 07:09
DX: S09.90XA Unspecified injury of head, initial encounter (principal); S93.401A Sprain of unspecified ligament of right ankle, initial encounter; S70.01XA Contusion of right hip, initial encounter; R51 Headache; I10 Essential (primary) hypertension; Z95.0 Presence of cardiac pacemaker; I48.91 Unspecified atrial fibrillation; M25.551 Pain in right hip; M25.571 Pain in right ankle and joints of right foot; I25.10 Atherosclerotic heart disease of native coronary artery without angina pectoris; W01.0XXA Fall on same level from slipping, tripping and stumbling without subsequent striking against object, initial encounter; Y92.008 Other place in unspecified non-institutional (private) residence as the place of occurrence of the external cause
CPT/HCPCS: 36415; 70450; 80053; 85025; 93005; 93010; 99284

== ENCOUNTER 2019-01-19 12:41 | Emergency (ER) | payer MEDICARE ==
--- NOTE | 2019-01-19 15:35 | ER Document Report ---
ED Medical Screen (RME) - General Chief Complaint: Abdominal Pain Stated Complaint: ABDOMINAL PAIN Time Seen by Provider: 01/19/19 15:30 Primary Care Provider: THUAN ESCOBAR MD [Primary Care Provider] - Follow up as needed Mode of Arrival: Wheelchair Information source: Patient Notes: Patient presents with a 3-day history of left lower quadrant abdominal pain. Patient denies any fever nausea or vomiting. Patient denies any blood in her stool. Patient was sent here from her primary doctor's office requesting a CT scan to be performed for evaluation for possible diverticulitis. hx; CHF, hypertension, A. fib, pacemaker, 2 cardiac stents, cholecystectomy, partial hysterectomy I have greeted and performed a rapid initial assessment of this patient. A comprehensive ED assessment and evaluation of the patient, analysis of test results and completion of the medical decision making process will be conducted by additional ED providers. TRAVEL OUTSIDE OF THE [place] IN LAST 30 DAYS: No - Related Data Allergies/Adverse Reactions: nitrofurantoin [From Macrobid] Allergy (Verified 01/19/19 12:49) Past Medical History - Social History Frequency of alcohol use: None Drug Abuse: None - Past Medical History Cardiac Medical History: Reports: Hx Atrial Fibrillation, Hx Coronary Artery Disease, Hx Hypercholesterolemia, Hx Hypertension Denies: Hx Congestive Heart Failure, Hx DVT, Hx Heart Attack, Hx Pulmonary Embolism Pulmonary Medical History: Reports: Hx Asthma Denies: Hx Bronchitis, Hx COPD, Hx Pneumonia, Hx Sleep Apnea, Hx Tuberculosis Neurological Medical History: Denies: Hx Cerebrovascular Accident, Hx Seizures Endocrine Medical History: Denies: Hx Diabetes Mellitus Type 1, Hx Diabetes Mellitus Type 2, Hx Hyperthyroidism, Hx Hypothyroidism Renal/ Medical History: Denies: Hx End Stage Renal Disease, Hx Kidney Stones, Hx Peritoneal Dialysis GI Medical History: Denies: Hx Cirrhosis, Hx Gastroesophageal Reflux Disease, Hx Hepatitis, Hx Ulcer Musculoskeltal Medical History: Reports Hx Arthritis - R.shoulder , Denies Hx Multiple Sclerosis Psychiatric Medical History: Denies: Hx Bipolar Disorder, Hx Depression, Hx Schizophrenia Infectious Medical History: Denies: Hx C-Diff, Hx Hepatitis, Hx MRSA Past Surgical History: Reports: Hx Cardiac Catheterization - cardiac stents x 2, Hx Cardiac Surgery - pacemaker, Hx Cholecystectomy, Hx Coronary Stent - x 3; last 2014, Hx Genitourinary Surgery - bladder tac, vaginal mesh, Hx Hysterectomy, Hx Orthopedic Surgery - Right Hip, Hx Pacemaker - Immunizations Hx Diphtheria, Pertussis, Tetanus Vaccination: No Physical Exam - Vital signs Vitals: Temp Pulse Resp BP Pulse Ox 97.9 F 85 16 129/58 H 99 01/19/19 12:50 01/19/19 12:50 01/19/19 12:50 01/19/19 12:50 01/19/19 12:50 - Abdominal Tenderness: Tender - Left lower pelvic tenderness Course - Vital Signs Vital signs: Temp Pulse Resp BP Pulse Ox 97.9 F 85 16 129/58 H 99 01/19/19 12:50 01/19/19 12:50 01/19/19 12:50 01/19/19 12:50 01/19/19 12:50 Doctor's Discharge - Discharge Referrals: THUAN ESCOBAR MD [Primary Care Provider] - Follow up as needed
[2019-01-19 16:23] LABS: ABSOLUTE EOSINOPHILS # (AUTO) 0.1 10^3/uL (0.0-0.6); ABSOLUTE LYMPHOCYTES (AUTO) 1.7 10^3/uL (0.5-4.7); ABSOLUTE MONOCYTES (AUTO) 0.8 10^3/uL (0.1-1.4); ABSOLUTE NEUT (AUTO) 5.6 10^3/uL (1.7-8.2); BASOPHILS % (AUTO) 0.4 % (0-2); EOSINOPHILS % (AUTO) 1.1 % (0-6); HEMATOCRIT 38.4 % (36.0-47.0); HEMOGLOBIN 12.6 g/dL (12.0-15.5); LYMPHOCYTES % (AUTO) 20.8 % (13-45); MEAN CORPUSCULAR HEMOGLOBIN 30.4 pg (27.0-33.4); MEAN CORPUSCULAR HGB CONC 32.8 g/dL (32.0-36.0); MEAN CORPUSCULAR VOLUME 93 fl (80-97); MONOCYTES % (AUTO) 9.6 % (3-13); PLATELET COUNT 179 10^3/uL (150-450); RED BLOOD COUNT 4.14 10^6/uL (3.72-5.28); RED CELL DISTRIBUTION WIDTH 14.7 % (11.5-14.0); SEGMENTED NEUTROPHILS % (AUTO) 68.1 % (42-78); TOTAL CELLS COUNTED % (AUTO) 100 %; WHITE BLOOD COUNT 8.2 10^3/uL (4.0-10.5)
[2019-01-19 16:33] LABS: ALANINE AMINOTRANSFERASE 46 U/L (9-52); ALBUMIN 4.2 g/dL (3.5-5.0); ALKALINE PHOSPHATASE 226 U/L (38-126); ANION GAP 11 (5-19); ASPARTATE AMINO TRANSFERASE 38 U/L (14-36); BILIRUBIN,DIRECT 0.3 mg/dL (0.0-0.4); BILIRUBIN,TOTAL 0.7 mg/dL (0.2-1.3); BLOOD UREA NITROGEN 25 mg/dL (7-20); CALCIUM 9.9 mg/dL (8.4-10.2); CARBON DIOXIDE 26 mmol/L (22-30); CHLORIDE 98 mmol/L (98-107); GLUCOSE 96 mg/dL (75-110); POTASSIUM 4.9 mmol/L (3.6-5.0); SODIUM 134.8 mmol/L (137-145); TOTAL PROTEIN 7.4 g/dL (6.3-8.2)
[2019-01-19 16:39] LABS: APPEARANCE,URINE CLEAR; BILIRUBIN,URINE NEGATIVE (NEGATIVE); COLOR,URINE YELLOW; GLUCOSE, URINE NEGATIVE (NEGATIVE); KETONES,URINE NEGATIVE (NEGATIVE); LEUKOCYTE ESTERASE,URINE TRACE (NEGATIVE); NITRITE,URINE NEGATIVE (NEGATIVE); PROTEIN,URINE NEGATIVE (NEGATIVE); URINE SPECIFIC GRAVITY 1.013; UROBILINOGEN,URINE NEGATIVE mg/dL (<2.0)
--- NOTE | 2019-01-19 19:41 | RADIOLOGY REPORT (SQ) ---
EXAM DESCRIPTION: CT ABD/PELVIS WITH IV ORAL COMPLETED DATE/TIME: 01/19/2019 7:07 pm REASON FOR STUDY: LLQ pain COMPARISON: None. TECHNIQUE: CT scan of the abdomen and pelvis performed using helical scanning technique with dynamic intravenous contrast injection. No oral contrast. Images reviewed with lung, soft tissue, and bone w indows. Reconstructed coronal and sagittal MPR images reviewed. Delayed images for evaluation of the urinary system also acquired. All images stored on PACS. All CT scanners at this facility use dose modulation, iterative reconstruction, and/or weight based d osing when appropriate to reduce radiation dose to as low as reasonably achievable (ALARA). [facility]: Dose Right [facility]: CareDose [facility]: Dose Right [facility]: Teradose 4D [facility]: DiaDerma BV CONTRAST TYPE AND DOSE: contrast/concentration: Isovue 350.00 mg/ml; Total Contrast Delivered: 54.0 ml; Total Saline Delivered: 65.0 ml RENAL FUNCTION: GFR > 60. RADIATION DOSE: CT Rad equipment meets quality standard of care and radiation dose reduction techniq ues were employed. CTDIvol: 5.9 - 7.6 mGy. DLP: 615 mGy-cm.. LIMITATIONS: Beam hardening artifact from right total hip arthroplasty hardware. FINDINGS: LOWER CHEST: No significant findings. LIVER: Normal size. No enhancing masses. No dilated ducts. SPLEEN: Normal size. No focal lesions. PANCREAS: No masses identified. No significant calcifications. No adjacent inflammation or peripancre atic fluid collections. Pancreatic duct not dilated. GALLBLADDER: Surgically absent. ADRENAL GLANDS: No significant masses. RIGHT KIDNEY AND URETER: Small cysts identified. No solid masses identified. No calcified stones. No hydronephrosis or hydroureter. LEFT KIDNEY AND URETER: Small cysts identified. No solid masses identified. No calcified stones. No h ydronephrosis or hydroureter. AORTA AND VESSELS: No aneurysm. No dissection. Renal arteries, SMA, celiac without significant stenos is. RETROPERITONEUM: No bulky retroperitoneal adenopathy. BOWEL AND PERITONEAL CAVITY: No obstruction or inflammatory changes. No free fluid. APPENDIX: Not visualized. PELVIS: Prior hysterectomy. No free fluid. Unremarkable bladder. ABDOMINAL WALL: No masses. No hernias. BONES: No acute findings. OTHER: No other significant finding. IMPRESSION: NO ACUTE FINDINGS IN THE ABDOMEN OR PELVIS ON CT SCAN WITH IV CONTRAST. TECHNICAL DOCUMENTATION: JOB ID: [id number] [place]-72 Quality ID # [id number]: Final reports with documentation of one or more dose reduction techniques (e.g., Au tomated exposure control, adjustment of the mA and/or kV according to patient size, use of iterative reconstruction technique) 2010 [employer]- All Rights Reserved Reading location - IP/workstation name: [email or web address]
[2019-01-19 20:20] VITALS: BP 170/80
--- NOTE | 2019-01-19 20:31 | ER Document Report ---
ED GI/ - General Chief Complaint: Abdominal Pain Stated Complaint: ABDOMINAL PAIN Time Seen by Provider: 01/19/19 15:30 Primary Care Provider: THUAN ESCOBAR MD [Primary Care Provider] - Follow up as needed Mode of Arrival: Wheelchair Notes: Patient is an 88 year old female that comes to the emergency department for chief complaint of left lower quadrant pain. She points to her left hip joint area for the pain. She states this is been bothering her for 3 days, intermittently, it is worse when she is walking. She denies nausea/vomiting, difficulty eating, abnormal bowel movements, fever/chills. She has had a partial hysterectomy and cholecystectomy. She also had a right hip replacement and she gets injections in the left hip every 3 months which helped "some". She states she is asked for hip replacement that they do not want to because she has a history of atrial fibrillation, CHF, hypertension, cardiac stents, and she is on Xarelto. She lives at home with her daughter, daughter is at bedside. TRAVEL OUTSIDE OF THE [place] IN LAST 30 DAYS: No - Related Data Allergies/Adverse Reactions: nitrofurantoin [From Macrobid] Allergy (Verified 01/19/19 12:49) Past Medical History - General Information source: Patient - Social History Smoking Status: Never Smoker Frequency of alcohol use: None Drug Abuse: None Lives with: Family Family History: Reviewed & Not Pertinent Patient has suicidal ideation: No Patient has homicidal ideation: No - Past Medical History Cardiac Medical History: Reports: Hx Atrial Fibrillation, Hx Coronary Artery Disease, Hx Hypercholesterolemia, Hx Hypertension Denies: Hx Congestive Heart Failure, Hx DVT, Hx Heart Attack, Hx Pulmonary Embolism Pulmonary Medical History: Reports: Hx Asthma Denies: Hx Bronchitis, Hx COPD, Hx Pneumonia, Hx Sleep Apnea, Hx Tuberculosis Neurological Medical History: Denies: Hx Cerebrovascular Accident, Hx Seizures Endocrine Medical History: Denies: Hx Diabetes Mellitus Type 1, Hx Diabetes Mellitus Type 2, Hx Hyperthyroidism, Hx Hypothyroidism Renal/ Medical History: Denies: Hx End Stage Renal Disease, Hx Kidney Stones, Hx Peritoneal Dialysis GI Medical History: Denies: Hx Cirrhosis, Hx Gastroesophageal Reflux Disease, Hx Hepatitis, Hx Ulcer Musculoskeletal Medical History: Reports Hx Arthritis - R.shoulder , Denies Hx Multiple Sclerosis Psychiatric Medical History: Denies: Hx Bipolar Disorder, Hx Depression, Hx Schizophrenia Infectious Medical History: Denies: Hx C-Diff, Hx Hepatitis, Hx MRSA Past Surgical History: Reports: Hx Cardiac Catheterization - cardiac stents x 2, Hx Cardiac Surgery - pacemaker, Hx Cholecystectomy, Hx Coronary Stent - x 3; last 2014, Hx Genitourinary Surgery - bladder tac, vaginal mesh, Hx Hysterectomy, Hx Orthopedic Surgery - Right Hip, Hx Pacemaker - Immunizations Hx Diphtheria, Pertussis, Tetanus Vaccination: No Review of Systems - Review of Systems Constitutional: No symptoms reported EENT: No symptoms reported Cardiovascular: No symptoms reported Respiratory: No symptoms reported Gastrointestinal: See HPI Genitourinary: No symptoms reported Female Genitourinary: No symptoms reported Musculoskeletal: See HPI Skin: No symptoms reported Hematologic/Lymphatic: No symptoms reported Neurological/Psychological: No symptoms reported Physical Exam - Vital signs Vitals: Temp Pulse Resp BP Pulse Ox 97.9 F 85 16 129/58 H 99 01/19/19 12:50 01/19/19 12:50 01/19/19 12:50 01/19/19 12:50 01/19/19 12:50 - Notes Notes: GENERAL: Alert, interacts well. No acute distress. HEAD: Normocephalic, atraumatic. EYES: Pupils equal, round, and reactive to light. Extraocular movements intact. ENT: Oral mucosa moist, tongue midline. Oropharynx unremarkable. Airway patent. NECK: Full range of motion. Supple. Trachea midline. LUNGS: Clear to auscultation bilaterally, no wheezes, rales, or rhonchi. No respiratory distress. HEART: Regular rate and rhythm. No murmur ABDOMEN: Soft, non-tender. Non-distended. Bowel sounds present in all 4 quadrants. GENITOURINARY: Deferred EXTREMITIES: Minimal tenderness with palpation over the left hip joint, no notable tenderness. She can still ambulate but with mild tenderness to that same area. Moves all extremities and full range of motion. No edema, normal radial and dorsalis pedis pulses bilaterally. No cyanosis. BACK: no cervical, thoracic, lumbar midline tenderness. No saddle anesthesia, normal distal neurovascular exam. NEUROLOGICAL: Alert and oriented x3. Normal speech. . PSYCH: Normal affect, normal mood. SKIN: Warm, dry, normal turgor. No rashes or lesions noted. Course - Re-evaluation Re-evalutation: I did review work-up. CBC unremarkable, chemistry nonspecific with mildly low sodium and somewhat elevated alk phos. Urinalysis unremarkable. CAT scan with no evidence of acute abnormality. Lactic acid is not elevated. On physical examination patient is very specific with the location of her pain, it is over the hip joint. There is minimal tenderness with palpation, patient can still walk but with some tenderness. She states this is not new for her but it is worse now, it is occasionally worse. She already gets hip injections. She already follows with orthopedics for this. She is stating that she feels like she needs pain medication for this at this time. I do not see any evidence of the abdomen being the cause of her symptoms, I do not suspect acute abdomen. I did discuss with patient and daughter at bedside, we decided to provide her with some short-term pain management with orthopedic follow-up. I discussed return precautions. They state satisfaction. - Vital Signs Vital signs: Temp Pulse Resp BP Pulse Ox 97.5 F 100 18 170/80 H 98 01/19/19 20:08 01/19/19 20:08 01/19/19 20:08 01/19/19 20:08 01/19/19 20:08 - Laboratory Result Diagrams: 01/19/19 15:47 01/19/19 15:47 Laboratory results interpreted by me: 01/19/19 01/19/19 01/19/19 15:47 15:47 16:00 RDW 14.7 H Sodium 134.8 L BUN 25 H Est GFR (Non-Af Amer) 51 L AST 38 H Alkaline Phosphatase 226 H Ur Leukocyte Esterase TRACE H Discharge - Discharge Clinical Impression: Left hip pain Condition: Stable Disposition: HOME, SELF-CARE Additional Instructions: Your CAT scan does not show any concerning abnormalities at this time. Your laboratory work-up is also reassuring. Your symptoms and examination are most consistent with pain from your left hip, probably from degenerative changes. I do recommend that you follow-up with orthopedics for additional management of your hip, I also recommend that if needed beyond Tylenol you can take the provided pain medication, you can take 1/2 to 1 tablet up to every 4 hours (also take stool softener with this to avoid constipation while taking). Return if you worsen including fever, severe worsening pain, vomiting, inability to walk, or any other concerning or worsening symptoms. Prescriptions: Morphine Sulfate [Morphine Ir 15 Mg Tablet] 15 mg PO Q4HP PRN #12 tablet PRN Reason: Docusate Sodium [Colace 100 mg Capsule] 100 mg PO ASDIR PRN #30 capsule PRN Reason: Referrals: THUAN ESCOBAR MD [Primary Care Provider] - Follow up as needed
== END 2019-01-19 20:40 | disposition home or self-care (01) ==
LOC: ER 12:41
DX: M25.552 Pain in left hip (principal); Z96.641 Presence of right artificial hip joint; R74.8 Abnormal levels of other serum enzymes; J45.909 Unspecified asthma, uncomplicated; I10 Essential (primary) hypertension; I25.10 Atherosclerotic heart disease of native coronary artery without angina pectoris; I48.91 Unspecified atrial fibrillation; Z79.01 Long term (current) use of anticoagulants; Z95.5 Presence of coronary angioplasty implant and graft; Z88.1 Allergy status to other antibiotic agents
CPT/HCPCS: 36415; 74177; 80053; 81001; 83605; 85025; 99284

== ENCOUNTER 2019-07-18 12:21 | Inpatient (IN) | payer MEDICARE ==
--- NOTE | 2019-07-18 12:31 | ER Document Report ---
ED Medical Screen (RME) - General Chief Complaint: Weakness Stated Complaint: WEAKNESS Time Seen by Provider: 07/18/19 12:27 Primary Care Provider: THUAN ESCOBAR MD [Primary Care Provider] - Follow up as needed Mode of Arrival: Wheelchair Information source: Patient Notes: 88-year-old female presented to ED for complaint of tired fatigue and weakness the last week. She states she went to her doctor and he told her to come to the emergency room to get a transfusion of iron. She does have a hemoglobin of 7.6 he states she has had iron transfusion she states she has not had any colonoscopies recently she has not had any dark stools or vomited any blood. I have greeted and performed a rapid initial assessment of this patient. A comprehensive ED assessment and evaluation of the patient, analysis of test results and completion of medical decision making process will be conducted by an additional ED providers. TRAVEL OUTSIDE OF THE [place] IN LAST 30 DAYS: No - Related Data Allergies/Adverse Reactions: nitrofurantoin [From Macrobid] Allergy (Verified 01/19/19 12:49) Past Medical History - Past Medical History Cardiac Medical History: Reports: Hx Atrial Fibrillation, Hx Coronary Artery Disease, Hx Hypercholesterolemia, Hx Hypertension Denies: Hx Congestive Heart Failure, Hx DVT, Hx Heart Attack, Hx Pulmonary Embolism Pulmonary Medical History: Reports: Hx Asthma Denies: Hx Bronchitis, Hx COPD, Hx Pneumonia, Hx Sleep Apnea, Hx Tuberculosis Neurological Medical History: Denies: Hx Cerebrovascular Accident, Hx Seizures, Hx Parkinson's Disease Endocrine Medical History: Denies: Hx Diabetes Mellitus Type 1, Hx Diabetes Mellitus Type 2, Hx Hyperthyroidism, Hx Hypothyroidism Renal/ Medical History: Denies: Hx End Stage Renal Disease, Hx Kidney Stones, Hx Peritoneal Dialysis GI Medical History: Denies: Hx Cirrhosis, Hx Gastroesophageal Reflux Disease, Hx Hepatitis, Hx Ulcer Musculoskeltal Medical History: Reports Hx Arthritis - R.shoulder , Denies Hx Multiple Sclerosis Psychiatric Medical History: Denies: Hx Bipolar Disorder, Hx Depression, Hx Schizophrenia Infectious Medical History: Denies: Hx C-Diff, Hx Hepatitis, Hx MRSA Past Surgical History: Reports: Hx Cardiac Catheterization - cardiac stents x 2, Hx Cardiac Surgery - pacemaker, Hx Cholecystectomy, Hx Coronary Stent - x 3; last 2014, Hx Genitourinary Surgery - bladder tac, vaginal mesh, Hx Hysterectomy, Hx Orthopedic Surgery - Right Hip, Hx Pacemaker - Immunizations Hx Diphtheria, Pertussis, Tetanus Vaccination: No Physical Exam - Vital signs Vitals: Temp Pulse Resp BP Pulse Ox 97.5 F 82 16 144/64 H 100 07/18/19 12:26 07/18/19 12:26 07/18/19 12:26 07/18/19 12:26 07/18/19 12:26 Course - Vital Signs Vital signs: Temp Pulse Resp BP Pulse Ox 97.5 F 82 16 144/64 H 100 07/18/19 12:26 07/18/19 12:26 07/18/19 12:26 07/18/19 12:26 07/18/19 12:26 Doctor's Discharge - Discharge Referrals: THUAN ESCOBAR MD [Primary Care Provider] - Follow up as needed
--- NOTE | 2019-07-18 13:03 | ER Document Report ---
ED General - General Mode of Arrival: Wheelchair TRAVEL OUTSIDE OF THE [place] IN LAST 30 DAYS: No <LATANYA BUSTAMANTE - Last Filed: 07/18/19 14:45> <KAMERON GAGNON - Last Filed: 07/18/19 22:58> - General Chief Complaint: Weakness Stated Complaint: WEAKNESS Time Seen by Provider: 07/18/19 12:27 Primary Care Provider: THUAN ESCOBAR MD [Primary Care Provider] - Follow up as needed - Related Data Allergies/Adverse Reactions: nitrofurantoin [From Macrobid] Allergy (Verified 07/18/19 12:28) Past Medical History - General Information source: Patient - Social History Smoking Status: Never Smoker Chew tobacco use (# tins/day): No Frequency of alcohol use: None Drug Abuse: None Family History: Reviewed & Not Pertinent Patient has suicidal ideation: No Patient has homicidal ideation: No - Past Medical History Cardiac Medical History: Reports: Hx Atrial Fibrillation, Hx Coronary Artery Disease, Hx Hypercholesterolemia, Hx Hypertension Denies: Hx Congestive Heart Failure, Hx DVT, Hx Heart Attack, Hx Pulmonary E mbolism Pulmonary Medical History: Reports: Hx Asthma Denies: Hx Bronchitis, Hx COPD, Hx Pneumonia, Hx Sleep Apnea, Hx Tuberculosis Neurological Medical History: Denies: Hx Cerebrovascular Accident, Hx Seizures, Hx Parkinson's Disease Endocrine Medical History: Denies: Hx Diabetes Mellitus Type 1, Hx Diabetes Mellitus Type 2, Hx Hyperthyroidism, Hx Hypothyroidism Renal/ Medical History: Denies: Hx End Stage Renal Disease, Hx Kidney Stones, Hx Peritoneal Dialysis GI Medical History: Denies: Hx Cirrhosis, Hx Gastroesophageal Reflux Disease, Hx Hepatitis, Hx Ulcer Musculoskeletal Medical History: Reports Hx Arthritis - R.shoulder , Denies Hx Multiple Sclerosis Psychiatric Medical History: Denies: Hx Bipolar Disorder, Hx Depression, Hx Schizophrenia Infectious Medical History: Denies: Hx C-Diff, Hx Hepatitis, Hx MRSA Past Surgical History: Reports: Hx Cardiac Catheterization - cardiac stents x 2, Hx Cardiac Surgery - pacemaker, Hx Cholecystectomy, Hx Coronary Stent - x 3; last 2014, Hx Genitourinary Surgery - bladder tac, vaginal mesh, Hx Hysterectomy, Hx Orthopedic Surgery - Right Hip, Hx Pacemaker - Immunizations Hx Diphtheria, Pertussis, Tetanus Vaccination: No <LATANYA BUSTAMANTE - Last Filed: 07/18/19 14:45> Physical Exam - Vital signs Vitals: Temp Pulse Resp BP Pulse Ox 97.5 F 82 16 144/64 H 100 07/18/19 12:26 07/18/19 12:26 07/18/19 12:26 07/18/19 12:26 07/18/19 12:26 Course - Laboratory Result Diagrams: 07/18/19 13:00 07/18/19 13:00 <LATANYA BUSTAMANTE - Last Filed: 07/18/19 14:45> - Laboratory Result Diagrams: 07/18/19 13:00 07/18/19 13:00 - Diagnostic Test Radiology reviewed: Reports reviewed <KAMERON GAGNON - Last Filed: 07/18/19 22:58> - Re-evaluation Re-evalutation: 07/18/19 22:56 MDM 88 year old frail female arrives with weakness and GI bleed. S/P 2 units PRBCs and some CHF symptoms here have improved with BIPAP/ NTG and lasix. I have discussed with Dr. Payne and he will see and admit. (KAMERON GAGNON) - Vital Signs Vital signs: Temp Pulse Resp BP Pulse Ox 98.2 F 106 H 23 H 146/102 H 97 07/18/19 18:51 07/18/19 18:51 07/18/19 22:01 07/18/19 22:00 07/18/19 22:01 - Laboratory Laboratory results interpreted by me: 07/18/19 07/18/19 07/18/19 13:00 13:00 13:00 RBC 3.01 L Hgb 7.8 L Hct 25.1 L MCH 26.0 L MCHC 31.3 L RDW 16.4 H Plt Count 140 L Carbon Dioxide 21 L BUN 29 H Est GFR (MDRD) Non-Af 51 L AST 48 H Alkaline Phosphatase 180 H Albumin 3.3 L Crossmatch See Detail Discharge <LATANYA BUSTAMANTE - Last Filed: 07/18/19 14:45> - Discharge Unit Admitted: [facility] <KAMERON GAGNON - Last Filed: 07/18/19 22:58> - Discharge Clinical Impression: Symptomatic anemia Anemia Qualifiers: Anemia type: other cause Condition: Fair Disposition: ADMITTED INPATIENT Additional Instructions: Please call Dr. Hirsch office first thing in the AM to follow-up after you received 2 units red cells in the [place] [facility] 07-18-19. He is also wanting to schedule you as an outpatient later with another provider for an iron infusion. Today you needed to have your blood cells replaced because you were symptomatic and your hemoglobin had dropped from your usual 12 to 7.8 --which is making you feel tired on exertion and easily fatigued. Today in the ER you did have some occult blood in your stool on testing. For this, Dr. Hirsch says he is also able to set you up with GI as an outpatient for that evaluation. Please seek care immediately if you notice any continued black stools, tarry or bright red stools. Referrals: THUAN ESCOBAR MD [Primary Care Provider] - Follow up as needed
[2019-07-18 13:29] LABS: HEMATOCRIT 25.1 % (36.0-47.0); MEAN CORPUSCULAR HGB CONC 31.3 g/dL (32.0-36.0); MEAN CORPUSCULAR VOLUME 83 fl (80-97); PLATELET COUNT 140 10^3/uL (150-450); RED BLOOD COUNT 3.01 10^6/uL (3.72-5.28); RED CELL DISTRIBUTION WIDTH 16.4 % (11.5-14.0); WHITE BLOOD COUNT 4.2 10^3/uL (4.0-10.5)
[2019-07-18 13:43] LABS: ALBUMIN 3.3 g/dL (3.5-5.0); ALKALINE PHOSPHATASE 180 U/L (38-126); ANION GAP 9 (5-19); ASPARTATE AMINO TRANSFERASE 48 U/L (14-36); BILIRUBIN,DIRECT 0.2 mg/dL (0.0-0.4); BILIRUBIN,TOTAL 0.6 mg/dL (0.2-1.3); BLOOD UREA NITROGEN 29 mg/dL (7-20); CALCIUM 8.7 mg/dL (8.4-10.2); CARBON DIOXIDE 21 mmol/L (22-30); CHLORIDE 107 mmol/L (98-107); GLUCOSE 92 mg/dL (75-110); TOTAL PROTEIN 6.3 g/dL (6.3-8.2)
[2019-07-18 13:53] LABS: APPEARANCE,URINE CLEAR; BILIRUBIN,URINE NEGATIVE (NEGATIVE); COLOR,URINE YELLOW; GLUCOSE, URINE NEGATIVE (NEGATIVE); KETONES,URINE NEGATIVE (NEGATIVE); PROTEIN,URINE NEGATIVE (NEGATIVE); URINE SPECIFIC GRAVITY 1.013; UROBILINOGEN,URINE NEGATIVE mg/dL (<2.0)
[2019-07-18 14:10] LABS: ABSOLUTE LYMPHOCYTES# (MANUAL) 1.1 10^3/uL (0.5-4.7); ABSOLUTE MONOCYTES # (MANUAL) 0.5 10^3/uL (0.1-1.4); BASOPHILS % (MANUAL) 2 % (0-2); EOSINOPHILS % (MANUAL) 0 % (0-6); LYMPHOCYTES % (MANUAL) 25 % (13-45); MONOCYTES % (MANUAL) 11 % (3-13); SEGMENTED NEUTROPHILS % (MAN) 62 % (42-78); TOTAL CELLS COUNTED 100
[2019-07-18 14:11] LABS: ANISOCYTOSIS 1+; OVALOCYTES SLIGHT; PLATELET COMMENT DECREASED; POIKILOCYTOSIS 1+; POLYCHROMASIA SLIGHT; SCHISTOCYTES 1+
[2019-07-18 14:12] LABS: HEMOGLOBIN 7.8 g/dL (12.0-15.5)
[2019-07-18] MEDS ORDERED: NORMAL SALINE 250 ML IV PRN ×2 (14:26)
[2019-07-18] MEDS ORDERED: METOPROLOL SUCCINATE 50 MG TAB.SR.24H PO ONE (19:39)
[2019-07-18] MEDS ORDERED: FUROSEMIDE INJ/PF 20 MG/2 ML SDV IV ONE (20:53)
[2019-07-18] MEDS ORDERED: NITROGLYCERIN 2% OINTMENT 1 GM PACKET TP ONE ×2 (21:36→21:44)
[2019-07-18] MEDS ORDERED: NITROGLYCERIN 2% OINTMENT 1 GM PACKET ONE (21:40)
[2019-07-18] MEDS ORDERED: MAG HYDROX/AL HYDROX/SIMETH SUSP 30 ML UDCUP PO PRN (22:57)
[2019-07-18] MEDS ORDERED: PANTOPRAZOLE SODIUM 40 MG VIAL IV ONE (23:02)
[2019-07-18] MEDS ORDERED: DILTIAZEM HCL/D5W 125 MG/125 ML RTUINJ IV PRN (23:02)
[2019-07-18] MEDS ORDERED: FUROSEMIDE INJ/PF 40 MG/4 ML SDV IV ONE (23:04)
[2019-07-18 23:36] LABS: IRON(TIBC) 24.6 ug/dL (37-170)
[2019-07-19 00:46] LABS: FOLATE > 20.00 ng/mL (>2.76)
[2019-07-19] MEDS ORDERED: DILTIAZEM HCL INJ 25 MG/5 ML VIAL ONE (02:18)
[2019-07-19 02:35] LABS: ABSOLUTE RETICS # 0.079 10^6/uL (0.028-0.122); INTERNATIONAL RATION (INR) 1.64; PROTHROMBIN TIME 19.6 SEC (11.4-15.4); RETICULOCYTE COUNT (AUTO) 1.81 % (0.66-2.85)
[2019-07-19 02:37] LABS: ABSOLUTE LYMPHOCYTES (AUTO) 0.8 10^3/uL (0.5-4.7); ABSOLUTE MONOCYTES (AUTO) 0.9 10^3/uL (0.1-1.4); ABSOLUTE NEUT (AUTO) 6.3 10^3/uL (1.7-8.2); BASOPHILS % (AUTO) 0.3 % (0-2); HEMATOCRIT 36.3 % (36.0-47.0); LYMPHOCYTES % (AUTO) 10.2 % (13-45); MEAN CORPUSCULAR HEMOGLOBIN 27.3 pg (27.0-33.4); MEAN CORPUSCULAR HGB CONC 32.8 g/dL (32.0-36.0); MEAN CORPUSCULAR VOLUME 83 fl (80-97); MONOCYTES % (AUTO) 11.6 % (3-13); PLATELET COUNT 133 10^3/uL (150-450); RED BLOOD COUNT 4.37 10^6/uL (3.72-5.28); RED CELL DISTRIBUTION WIDTH 15.8 % (11.5-14.0); SEGMENTED NEUTROPHILS % (AUTO) 77.9 % (42-78); TOTAL CELLS COUNTED % (AUTO) 100 %; WHITE BLOOD COUNT 8.1 10^3/uL (4.0-10.5)
[2019-07-19 02:38] LABS: HEMOGLOBIN 11.9 g/dL (12.0-15.5)
[2019-07-19 02:43] LABS: ANION GAP 15 (5-19); BLOOD UREA NITROGEN 28 mg/dL (7-20); CALCIUM 9.3 mg/dL (8.4-10.2); CARBON DIOXIDE 19 mmol/L (22-30); CHLORIDE 105 mmol/L (98-107); GLUCOSE 106 mg/dL (75-110); POTASSIUM 4.6 mmol/L (3.6-5.0)
[2019-07-19] MEDS: PANTOPRAZOLE SODIUM 40 MG VIAL IV PRN ×2 (02:50→13:35)
[2019-07-19] MEDS ORDERED: METOPROLOL TARTRATE PF/INJ 5 MG/5 ML SDV IV ONE (03:45)
[2019-07-19] MEDS ORDERED: IRON SUCROSE COMPLEX INJ/PF 100 MG/5 ML SDV IV ONE (03:45)
[2019-07-19] MEDS ORDERED: INFLUENZA QUAD (6MOS+) 2019-20 VAC 0.5 ML SYR IM ONE (03:48)
[2019-07-19] MEDS: ACETAMINOPHEN 325 MG TABLET PO PRN ×2 (03:58→20:56)
[2019-07-19] MEDS ORDERED: DILTIAZEM HCL/D5W 125 MG/125 ML RTUINJ IV PRN (04:00)
--- NOTE | 2019-07-19 06:11 | PDOC H&P ---
History of Present Illness Admission Date/PCP: 07/18/19 23:21 THUAN ESCOBAR MD Patient complains of: Weakness History of Present Illness: ROBINSON HAMM is a 88 year old female with a past medical history of coronary artery disease status post stent x3, paroxysmal atrial fibrillation on Xarelto and TIA. She presents after primary care labs reveal anemia. In the emergency room she is found to have A. fib with RVR, and hemoglobin of only 7.8 from 12 6 months ago and heme occult positive stools. She received 2 units of packed red blood cells and has subsequent shortness of breath. She is referred to the hospitalist for admission denying chest pain. She denies abdominal pain, change in bowel habits but admits chronic black stool. She admits NSAID use with Xarelto, without GI prophylaxis. Her daughter of colon cancer. Past Medical History Cardiac Medical History: Reports: Atrial Fibrillation, Coronary Artery Disease, Hyperlipidema, Hypertension Denies: Congestive Heart Failure, DVT, Myocardial Infarction, Pulmonary Embolism Pulmonary Medical History: Reports: Asthma Denies: Bronchitis, Chronic Obstructive Pulmonary Disease (COPD), Pneumonia, Sleep Apnea, Tuberculosis Neurological Medical History: Denies: Seizures Endocrine Medical History: Denies: Diabetes Mellitus Type 1, Diabetes Mellitus Type 2, Hyperthyroidism, Hypothyroidism Renal/ Medical History: Denies: End Stage Renal Disease GI Medical History: Denies: Cirrhosis, Gastroesophageal Reflux Disease, Hepatitis Musculoskeltal Medical History: Reports: Arthritis - R.shoulder Psychiatric Medical History: Reports: Depression Denies: Bipolar Disorder Hematology: Reports: Anemia Denies: Bleeding Tendencies Infectious Medical History: Denies: Clostridium Difficile, Methicillin-Resistant Staph Aureus Past Surgical History Past Surgical History: Reports: Cardiac Catheterization - cardiac stents x 2, Cholecystectomy, Coronary Stent - x 3; last 2014, Hysterectomy, Orthopedic Surgery - Right Hip, Pacemaker Social History Information Source: Patient, [facility] Records Lives with: Alone Smoking Status: Never Smoker Electronic Cigarette use?: No Frequency of Alcohol Use: None Hx Recreational Drug Use: No Drugs: None Hx Prescription Drug Abuse: No - Advance Directive Resuscitation Status: Full Code Family History Family History: Arthritis, Malignancy - Colon cancer Parental Family History Reviewed: Yes Children Family History Reviewed: Yes Sibling(s) Family History Reviewed.: Yes Medication/Allergy Home Medications: Acetaminophen [Tylenol 325 mg Tablet] 1 tab PO BID PRN 06/24/16 Atorvastatin Calcium [Lipitor 80 mg Tablet] 80 mg PO ASDIR PRN 06/24/16 Cyanocobalamin (Vitamin B-12) [B-12] 1,000 mcg PO Q2D 06/24/16 Metoprolol Succinate [Toprol XL 200 mg Tablet] 200 mg PO DAILY 06/24/16 Potassium Chloride 20 meq PO ASDIR PRN 06/24/16 Furosemide [Lasix] 40 mg PO ASDIR PRN 01/18/17 Montelukast Sodium 5 mg PO DAILY 01/18/17 Rivaroxaban [Xarelto] 15 mg PO QPM 01/18/17 Lisinopril 1 tab PO DAILY 08/30/17 Sertraline HCl 1 tab PO DAILY 08/30/17 Docusate Sodium [Colace 100 mg Capsule] 100 mg PO ASDIR PRN #30 capsule 01/19/19 Morphine Sulfate [Morphine Ir 15 Mg Tablet] 15 mg PO Q4HP PRN #12 tablet 01/19/19 Allergies/Adverse Reactions: nitrofurantoin [From Macrobid] Allergy (Verified 07/18/19 12:28) Physical Exam Vital Signs: Temp Pulse Resp BP Pulse Ox 97.8 F 87 24 H 149/80 H 96 07/19/19 04:00 07/19/19 04:00 07/19/19 04:00 07/19/19 04:00 07/19/19 04:00 Intake & Output 07/17/19 07/18/19 07/19/19 11:59 11:59 11:59 Intake Total 474.8 Output Total 1550 Balance -1075.2 Weight 77.4 kg Results Laboratory Results: 07/19/19 02:21 07/19/19 02:21 07/18/19 07/18/19 07/18/19 13:00 13:00 13:00 WBC 4.2 RBC 3.01 L Hgb 7.8 L Hct 25.1 L MCV 83 MCH 26.0 L MCHC 31.3 L RDW 16.4 H Plt Count 140 L Seg Neutrophils % Not Reportable Retic Count (auto) Absolute Retic Sodium 137.0 Potassium 5.0 Chloride 107 Carbon Dioxide 21 L Anion Gap 9 BUN 29 H Creatinine 1.03 Est GFR ( Amer) > 60 Glucose 92 Calcium 8.7 Magnesium Iron TIBC % Saturation Ferritin Total Bilirubin 0.6 AST 48 H Alkaline Phosphatase 180 H Total Protein 6.3 Albumin 3.3 L Lipase 119.6 Vitamin B12 Folate TSH Urine Color Urine Appearance Urine pH Ur Specific [place] Urine Protein Urine Glucose (UA) Urine Ketones Urine Blood Urine RBC (Auto) Blood Type A POSITIVE Antibody Screen NEGATIVE 07/18/19 07/18/19 07/18/19 13:00 13:00 13:00 WBC RBC Hgb Hct MCV MCH MCHC RDW Plt Count Seg Neutrophils % Retic Count (auto) Cancelled Absolute Retic Cancelled Sodium Potassium Chloride Carbon Dioxide Anion Gap BUN Creatinine Est GFR ( Amer) Glucose Calcium Magnesium 2.1 Iron 24.6 L TIBC 401 % Saturation 6 Ferritin 25.50 Total Bilirubin AST Alkaline Phosphatase Total Protein Albumin Lipase Vitamin B12 > 1000.0 H Folate > 20.00 TSH 2.89 Urine Color Urine Appearance Urine pH Ur Specific [place] Urine Protein Urine Glucose (UA) Urine Ketones Urine Blood Urine RBC (Auto) Blood Type Antibody Screen 07/18/19 07/19/19 07/19/19 13:39 02:21 02:21 WBC 8.1 RBC 4.37 Hgb 11.9 L D Hct 36.3 MCV 83 MCH 27.3 MCHC 32.8 RDW 15.8 H Plt Count 133 L Seg Neutrophils % 77.9 Retic Count (auto) 1.81 Absolute Retic Sodium Potassium Chloride Carbon Dioxide Anion Gap BUN Creatinine Est GFR ( Amer) Glucose Calcium Magnesium Iron TIBC % Saturation Ferritin Total Bilirubin AST Alkaline Phosphatase Total Protein Albumin Lipase Vitamin B12 Folate TSH Urine Color YELLOW Urine Appearance CLEAR Urine pH 5.0 Ur Specific [place] 1.013 Urine Protein NEGATIVE Urine Glucose (UA) NEGATIVE Urine Ketones NEGATIVE Urine Blood NEGATIVE Urine RBC (Auto) 1 Blood Type Antibody Screen 07/19/19 02:21 WBC RBC Hgb Hct MCV MCH MCHC RDW Plt Count Seg Neutrophils % Retic Count (auto) Absolute Retic Sodium 138.7 Potassium 4.6 Chloride 105 Carbon Dioxide 19 L Anion Gap 15 BUN 28 H Creatinine 1.01 Est GFR ( Amer) > 60 Glucose 106 Calcium 9.3 Magnesium Iron TIBC % Saturation Ferritin Total Bilirubin AST Alkaline Phosphatase Total Protein Albumin Lipase Vitamin B12 Folate TSH Urine Color Urine Appearance Urine pH Ur Specific [place] Urine Protein Urine Glucose (UA) Urine Ketones Urine Blood Urine RBC (Auto) Blood Type Antibody Screen 07/18/19 13:00 NT-Pro-B Natriuret Pep 4090 H Assessment and Plan - Diagnosis (1) GI bleed Is this a current diagnosis for this admission?: Yes Plan: Likely upper GI bleed given melena, aspirin and Xarelto without prophylaxis. Transfuse 2 units packed red blood cells, IV Protonix, hold Xarelto, follow-up CBC and GI consult (2) Anemia Qualifiers: Anemia type: other cause Is this a current diagnosis for this admission?: Yes Plan: Microcytic, fecal occult stool positive. IV Protonix, 2 units of packed red blood cells, iron, hold Xarelto, follow-up CBC and GI consult (3) Symptomatic anemia Is this a current diagnosis for this admission?: Yes Plan: Secondary to #1 (4) Atrial fibrillation Qualifiers: Is this a current diagnosis for this admission?: Yes Plan: Hold Xarelto, IV Cardizem as needed, Lopressor. - Time Time Spent with patient: 25-34 minutes - Inpatient Certification Medical Necessity: Need Close Monitoring Due to Risk of Patient Decompensation
--- NOTE | 2019-07-19 07:24 | PDOC CONSULTATION ---
Consultation Consult Date: 07/19/19 Provider Consulted: HERBIE VILLANUEVA Consult reason:: possible upper GI bleeding History of Present Illness Admission Date/PCP: 07/18/19 23:21 THUAN ESCOBAR MD History of Present Illness: ROBINSON HAMM is a 88 year old female Patient is admitted overnight with possible GI bleeding noted to be anemic on anticoagulation for cardiac issues has an elevated BUN to creatinine ratio patient denies any hematochezia admitted for blood transfusion has had her anticoagulation held for now but at this point has been < 24 hours does need EGD however will schedule for tomorrow since will need to anticoagulation to be stopped for at least 24 hours Past Medical History Cardiac Medical History: Reports: Atrial Fibrillation, Coronary Artery Disease, Hyperlipidema, Hypertension Denies: Congestive Heart Failure, DVT, Myocardial Infarction, Pulmonary Embolism Pulmonary Medical History: Reports: Asthma Denies: Bronchitis, Chronic Obstructive Pulmonary Disease (COPD), Pneumonia, Sleep Apnea, Tuberculosis Neurological Medical History: Denies: Seizures Endocrine Medical History: Denies: Diabetes Mellitus Type 1, Diabetes Mellitus Type 2, Hyperthyroidism, Hypothyroidism Renal/ Medical History: Denies: End Stage Renal Disease GI Medical History: Denies: Cirrhosis, Gastroesophageal Reflux Disease, Hepatitis Musculoskeltal Medical History: Reports: Arthritis - R.shoulder Psychiatric Medical History: Reports: Depression Denies: Bipolar Disorder Hematology: Reports: Anemia Denies: Bleeding Tendencies Infectious Medical History: Denies: Clostridium Difficile, Methicillin-Resistant Staph Aureus Past Surgical History Past Surgical History: Reports: Cardiac Catheterization - cardiac stents x 2, Cholecystectomy, Coronary Stent - x 3; last 2014, Hysterectomy, Orthopedic Surgery - Right Hip, Pacemaker Social History Lives with: Alone Smoking Status: Never Smoker Electronic Cigarette use?: No Frequency of Alcohol Use: None Hx Recreational Drug Use: No Drugs: None Hx Prescription Drug Abuse: No - Advance Directive Resuscitation Status: Full Code Family History Family History: Arthritis, Malignancy - Colon cancer Parental Family History Reviewed: Yes Children Family History Reviewed: Unknown Sibling(s) Family History Reviewed.: Unknown Medication/Allergy Home Medications: Acetaminophen [Tylenol 325 mg Tablet] 1 tab PO BID PRN 06/24/16 Atorvastatin Calcium [Lipitor 80 mg Tablet] 80 mg PO ASDIR PRN 06/24/16 Cyanocobalamin (Vitamin B-12) [B-12] 1,000 mcg PO Q2D 10/12/16 Metoprolol Succinate [Toprol XL 200 mg Tablet] 200 mg PO DAILY 06/24/16 Potassium Chloride 20 meq PO ASDIR PRN 06/24/16 Furosemide [Lasix] 40 mg PO ASDIR PRN 01/18/17 Montelukast Sodium 5 mg PO DAILY 01/18/17 Rivaroxaban [Xarelto] 15 mg PO QPM 01/18/17 Lisinopril 1 tab PO DAILY 08/30/17 Sertraline HCl 1 tab PO DAILY 08/30/17 Docusate Sodium [Colace 100 mg Capsule] 100 mg PO ASDIR PRN #30 capsule 01/19/19 Morphine Sulfate [Morphine Ir 15 Mg Tablet] 15 mg PO Q4HP PRN #12 tablet 01/19/19 Allergies/Adverse Reactions: nitrofurantoin [From Macrobid] Allergy (Verified 07/18/19 12:28) Review of Systems Constitutional: PRESENT: weakness. ABSENT: fever(s), headache(s), night sweats Eyes: ABSENT: visual disturbances Ears: ABSENT: hearing changes Nose, Mouth, and Throat: ABSENT: mouth pain, sore throat Respiratory: ABSENT: dyspnea, hemoptysis Gastrointestinal: ABSENT: diarrhea, dysphagia, hematemesis, hematochezia Genitourinary: ABSENT: dysuria, hematuria Musculoskeletal: ABSENT: deformity, joint swelling Neurological: ABSENT: syncope, tingling, tremor(s), vertigo Endocrine: ABSENT: polydipsia, polyphagia, polyuria Hematologic/Lymphatic: ABSENT: easy bruising, lymphadenopathy Physical Exam Vital Signs: Temp Pulse Resp BP Pulse Ox 97.8 F 87 24 H 149/80 H 96 07/19/19 04:00 07/19/19 04:00 07/19/19 04:00 07/19/19 04:00 07/19/19 04:00 Intake & Output 07/18/19 07/19/19 07/20/19 06:59 06:59 06:59 Intake Total 974.8 Output Total 2500 Balance -1525.2 Weight 50 kg General appearance: PRESENT: mild distress Head exam: PRESENT: atraumatic, normocephalic Eye exam: PRESENT: EOMI, PERRLA. ABSENT: nystagmus, periorbital swelling, scleral icterus Mouth exam: PRESENT: moist, neck supple Neck exam: ABSENT: meningismus, tenderness, thyromegaly Cardiovascular exam: PRESENT: irregular rhythm, +S2. ABSENT: RRR GI/Abdominal exam: PRESENT: soft. ABSENT: St's sign, rebound, rigid, tenderness Extremities exam: ABSENT: joint swelling Musculoskeletal exam: PRESENT: full ROM Neurological exam: PRESENT: alert, awake, CN II-XII grossly intact. ABSENT: altered Skin exam: PRESENT: normal color. ABSENT: mottled, pallor, petechiae Results Laboratory Results: 07/19/19 02:21 07/19/19 02:21 07/18/19 07/18/19 07/18/19 13:00 13:00 13:00 WBC 4.2 RBC 3.01 L Hgb 7.8 L Hct 25.1 L MCV 83 MCH 26.0 L MCHC 31.3 L RDW 16.4 H Plt Count 140 L Seg Neutrophils % Not Reportable Retic Count (auto) Absolute Retic Sodium 137.0 Potassium 5.0 Chloride 107 Carbon Dioxide 21 L Anion Gap 9 BUN 29 H Creatinine 1.03 Est GFR ( Amer) > 60 Glucose 92 Calcium 8.7 Magnesium Iron TIBC % Saturation Ferritin Total Bilirubin 0.6 AST 48 H Alkaline Phosphatase 180 H Total Protein 6.3 Albumin 3.3 L Lipase 119.6 Vitamin B12 Folate TSH Urine Color Urine Appearance Urine pH Ur Specific [place] Urine Protein Urine Glucose (UA) Urine Ketones Urine Blood Urine RBC (Auto) Blood Type A POSITIVE Antibody Screen NEGATIVE 07/18/19 07/18/19 07/18/19 13:00 13:00 13:00 WBC RBC Hgb Hct MCV MCH MCHC RDW Plt Count Seg Neutrophils % Retic Count (auto) Cancelled Absolute Retic Cancelled Sodium Potassium Chloride Carbon Dioxide Anion Gap BUN Creatinine Est GFR ( Amer) Glucose Calcium Magnesium 2.1 Iron 24.6 L TIBC 401 % Saturation 6 Ferritin 25.50 Total Bilirubin AST Alkaline Phosphatase Total Protein Albumin Lipase Vitamin B12 > 1000.0 H Folate > 20.00 TSH 2.89 Urine Color Urine Appearance Urine pH Ur Specific [place] Urine Protein Urine Glucose (UA) Urine Ketones Urine Blood Urine RBC (Auto) Blood Type Antibody Screen 07/18/19 07/19/19 07/19/19 13:39 02:21 02:21 WBC 8.1 RBC 4.37 Hgb 11.9 L D Hct 36.3 MCV 83 MCH 27.3 MCHC 32.8 RDW 15.8 H Plt Count 133 L Seg Neutrophils % 77.9 Retic Count (auto) 1.81 Absolute Retic Sodium Potassium Chloride Carbon Dioxide Anion Gap BUN Creatinine Est GFR ( Amer) Glucose Calcium Magnesium Iron TIBC % Saturation Ferritin Total Bilirubin AST Alkaline Phosphatase Total Protein Albumin Lipase Vitamin B12 Folate TSH Urine Color YELLOW Urine Appearance CLEAR Urine pH 5.0 Ur Specific [place] 1.013 Urine Protein NEGATIVE Urine Glucose (UA) NEGATIVE Urine Ketones NEGATIVE Urine Blood NEGATIVE Urine RBC (Auto) 1 Blood Type Antibody Screen 07/19/19 02:21 WBC RBC Hgb Hct MCV MCH MCHC RDW Plt Count Seg Neutrophils % Retic Count (auto) Absolute Retic Sodium 138.7 Potassium 4.6 Chloride 105 Carbon Dioxide 19 L Anion Gap 15 BUN 28 H Creatinine 1.01 Est GFR ( Amer) > 60 Glucose 106 Calcium 9.3 Magnesium Iron TIBC % Saturation Ferritin Total Bilirubin AST Alkaline Phosphatase Total Protein Albumin Lipase Vitamin B12 Folate TSH Urine Color Urine Appearance Urine pH Ur Specific [place] Urine Protein Urine Glucose (UA) Urine Ketones Urine Blood Urine RBC (Auto) Blood Type Antibody Screen 07/18/19 13:00 NT-Pro-B Natriuret Pep 4090 H Assessment & Plan - Diagnosis (1) Anemia Qualifiers: Anemia type: other cause Is this a current diagnosis for this admission?: Yes Plan: could be due to possible GI blood loss GI tract elevated BUN/ Creat ratio suggests an upper GI location, slow bleeding rather than acute large volume loss agree with admission xarelto has been discontinued will need EGD Rule out atypical presentation of peptic ulcer disease in the elderly Risks, benefits and alternatives are discussed with the patient conscious sedation further recommendations to follow start on a PPI drip clear liquids - Time Time Spent: 50 to 70 Minutes
--- NOTE | 2019-07-19 07:43 | Progress Note ---
Provider Note Provider Note: chart review shows that patient has been seen in the past by Dr Seymour she appears to have had a colonoscopy done but no dictated note is available patient known to have diverticulosis also noted to have EGD done in the pats showing a bezoar in the past will schedule for EGD will need to decide if she is a candidate for repeat colonoscopy due to her age if EGD is negative
--- NOTE | 2019-07-19 07:54 | RADIOLOGY REPORT (SQ) ---
EXAM DESCRIPTION: XR CHEST 1 VIEW COMPLETED DATE/TME: CLINICAL HISTORY: 88 years Female, SOB, SYMPTOMS OF PRBC COMPARISON: 09/25/16 NUMBER OF VIEWS/TECHNIQUE: 1/AP FINDINGS: Moderate mixed interstitial and airspace opacity includes moderate patchiness of the right upper lobe.Left cardiac stimulator with leads. Small blunting-effusion of the right costophrenic angle. Atherosclerotic vascular disease. Adequate lung volume, normal cardiac silhouette, and intact bony thorax. IMPRESSION: Moderate mixed interstitial and airpace opacities. Differential diagnosis includes pulmonary edema, multifocal pneumonia, and chronic interstitial lung disease.
[2019-07-19] MEDS: DOCUSATE SODIUM 100 MG CAPSULE PO SCH ×2 (09:08→18:34)
[2019-07-19] MEDS: ASPIRIN 81 MG TABLET, CHEWABLE PO SCH (09:08)
--- NOTE | 2019-07-19 13:09 | PDOC PROGRESS REPORT ---
Subjective Progress Note for:: 07/19/19 Subjective:: Patient was admitted for a likely upper GI bleed. She was given 2 units of packed RBCs. She developed tachycardia and slight shortness of breath and was not able to complete the second unit. Her hemoglobin however has significantly improved to 11.9. She says she still had black stools but this has been going on for almost a year now. Otherwise, no other acute event overnight. Upon encounter, she appears comfortable and denies any other acute complaint. No nausea, hematemesis or abdominal pain. Patient was seen by GI and will be scheduled for an EGD and possible colonoscopy. Reason For Visit: AFIB ANEMIA Physical Exam Vital Signs: Temp Pulse Resp BP Pulse Ox 97.9 F 80 17 163/76 H 97 07/19/19 10:59 07/19/19 10:59 07/19/19 10:59 07/19/19 10:59 07/19/19 11:47 Intake & Output 07/18/19 07/19/19 07/20/19 06:59 06:59 06:59 Intake Total 974.8 360 Output Total 2500 Balance -1525.2 360 Weight 110 lb 3.698 oz General appearance: PRESENT: no acute distress, well-developed, well-nourished Head exam: PRESENT: atraumatic, normocephalic Eye exam: PRESENT: conjunctiva pink, EOMI, PERRLA. ABSENT: scleral icterus Ear exam: PRESENT: normal external ear exam Mouth exam: PRESENT: moist, tongue midline Neck exam: ABSENT: carotid bruit, JVD, lymphadenopathy, thyromegaly Respiratory exam: PRESENT: clear to auscultation raz. ABSENT: rales, rhonchi, wheezes Cardiovascular exam: PRESENT: RRR. ABSENT: diastolic murmur, rubs, systolic murmur Pulses: PRESENT: normal dorsalis pedis pul GI/Abdominal exam: PRESENT: normal bowel sounds, soft. ABSENT: distended, guarding, mass, organolmegaly, rebound, tenderness Rectal exam: PRESENT: deferred Extremities exam: PRESENT: full ROM. ABSENT: calf tenderness, clubbing, pedal edema Neurological exam: PRESENT: alert, awake, oriented to person, oriented to place, oriented to time, oriented to situation, CN II-XII grossly intact. ABSENT: motor sensory deficit Results Laboratory Results: 07/19/19 02:21 07/19/19 02:21 07/18/19 07/18/19 07/18/19 13:00 13:00 13:00 WBC 4.2 RBC 3.01 L Hgb 7.8 L Hct 25.1 L MCV 83 MCH 26.0 L MCHC 31.3 L RDW 16.4 H Plt Count 140 L Seg Neutrophils % Not Reportable Retic Count (auto) Absolute Retic Sodium 137.0 Potassium 5.0 Chloride 107 Carbon Dioxide 21 L Anion Gap 9 BUN 29 H Creatinine 1.03 Est GFR ( Amer) > 60 Glucose 92 Calcium 8.7 Magnesium Iron TIBC % Saturation Ferritin Total Bilirubin 0.6 AST 48 H Alkaline Phosphatase 180 H Total Protein 6.3 Albumin 3.3 L Lipase 119.6 Vitamin B12 Folate TSH Urine Color Urine Appearance Urine pH Ur Specific [place] Urine Protein Urine Glucose (UA) Urine Ketones Urine Blood Urine RBC (Auto) Blood Type A POSITIVE Antibody Screen NEGATIVE 07/18/19 07/18/19 07/18/19 13:00 13:00 13:00 WBC RBC Hgb Hct MCV MCH MCHC RDW Plt Count Seg Neutrophils % Retic Count (auto) Cancelled Absolute Retic Cancelled Sodium Potassium Chloride Carbon Dioxide Anion Gap BUN Creatinine Est GFR ( Amer) Glucose Calcium Magnesium 2.1 Iron 24.6 L TIBC 401 % Saturation 6 Ferritin 25.50 Total Bilirubin AST Alkaline Phosphatase Total Protein Albumin Lipase Vitamin B12 > 1000.0 H Folate > 20.00 TSH 2.89 Urine Color Urine Appearance Urine pH Ur Specific [place] Urine Protein Urine Glucose (UA) Urine Ketones Urine Blood Urine RBC (Auto) Blood Type Antibody Screen 07/18/19 07/19/19 07/19/19 13:39 02:21 02:21 WBC 8.1 RBC 4.37 Hgb 11.9 L D Hct 36.3 MCV 83 MCH 27.3 MCHC 32.8 RDW 15.8 H Plt Count 133 L Seg Neutrophils % 77.9 Retic Count (auto) 1.81 Absolute Retic Sodium Potassium Chloride Carbon Dioxide Anion Gap BUN Creatinine Est GFR ( Amer) Glucose Calcium Magnesium Iron TIBC % Saturation Ferritin Total Bilirubin AST Alkaline Phosphatase Total Protein Albumin Lipase Vitamin B12 Folate TSH Urine Color YELLOW Urine Appearance CLEAR Urine pH 5.0 Ur Specific [place] 1.013 Urine Protein NEGATIVE Urine Glucose (UA) NEGATIVE Urine Ketones NEGATIVE Urine Blood NEGATIVE Urine RBC (Auto) 1 Blood Type Antibody Screen 07/19/19 02:21 WBC RBC Hgb Hct MCV MCH MCHC RDW Plt Count Seg Neutrophils % Retic Count (auto) Absolute Retic Sodium 138.7 Potassium 4.6 Chloride 105 Carbon Dioxide 19 L Anion Gap 15 BUN 28 H Creatinine 1.01 Est GFR ( Amer) > 60 Glucose 106 Calcium 9.3 Magnesium Iron TIBC % Saturation Ferritin Total Bilirubin AST Alkaline Phosphatase Total Protein Albumin Lipase Vitamin B12 Folate TSH Urine Color Urine Appearance Urine pH Ur Specific [place] Urine Protein Urine Glucose (UA) Urine Ketones Urine Blood Urine RBC (Auto) Blood Type Antibody Screen 07/18/19 13:00 NT-Pro-B Natriuret Pep 4090 H Impressions: Chest X-Ray 07/18/19 20:39 IMPRESSION: Moderate mixed interstitial and airpace opacities. Differential diagnosis includes pulmonary edema, multifocal pneumonia, and chronic interstitial lung disease. Assessment and Plan - Diagnosis (1) GI bleed Is this a current diagnosis for this admission?: Yes Plan: Hb significantly improved to 11.9. Continue IV Protonix. Patient was seen by GI and will be scheduled for an EGD and possible colonoscopy. (2) Acute blood loss anemia Is this a current diagnosis for this admission?: Yes Plan: As per #1. (3) Atrial fibrillation Qualifiers: Is this a current diagnosis for this admission?: Yes Plan: Xarelto held due to GI bleed. - Time Time Spent with patient: 25-34 minutes
[2019-07-19] MEDS: METOPROLOL SUCCINATE 50 MG TAB.SR.24H PO SCH (20:59)
[2019-07-20] MEDS: PANTOPRAZOLE SODIUM 40 MG VIAL IV PRN (05:37)
[2019-07-20 06:46] LABS: HEMATOCRIT 31.3 % (36.0-47.0); HEMOGLOBIN 10.3 g/dL (12.0-15.5); MEAN CORPUSCULAR HEMOGLOBIN 27.2 pg (27.0-33.4); MEAN CORPUSCULAR VOLUME 83 fl (80-97); PLATELET COUNT 108 10^3/uL (150-450); RED CELL DISTRIBUTION WIDTH 15.8 % (11.5-14.0); WHITE BLOOD COUNT 4.8 10^3/uL (4.0-10.5)
[2019-07-20 07:06] LABS: ABSOLUTE LYMPHOCYTES# (MANUAL) 0.9 10^3/uL (0.5-4.7); ABSOLUTE MONOCYTES # (MANUAL) 1.1 10^3/uL (0.1-1.4); BASOPHILS % (MANUAL) 0 % (0-2); EOSINOPHILS % (MANUAL) 1 % (0-6); LYMPHOCYTES % (MANUAL) 16 % (13-45); MONOCYTES % (MANUAL) 22 % (3-13); SEGMENTED NEUTROPHILS % (MAN) 59 % (42-78); TOTAL CELLS COUNTED 100
[2019-07-20 07:07] LABS: ANISOCYTOSIS 1+; PLATELET COMMENT DECREASED; TOXIC VACUOLATION PRESENT
[2019-07-20] MEDS: ASPIRIN 81 MG TABLET, CHEWABLE PO SCH (09:21)
[2019-07-20] MEDS: METOPROLOL SUCCINATE 50 MG TAB.SR.24H PO SCH (09:21)
[2019-07-20] MEDS: DOCUSATE SODIUM 100 MG CAPSULE PO SCH ×2 (09:21→17:15)
[2019-07-20] MEDS ORDERED: NALOXONE HCL INJ/PF 0.4 MG/1 ML SDV ONE (11:27)
[2019-07-20] MEDS ORDERED: FLUMAZENIL INJ 0.5 MG/5 ML VIAL ONE (11:27)
[2019-07-20] MEDS ORDERED: DIPHENHYDRAMINE HCL 50 MG/ML VIAL ONE (11:27)
[2019-07-20] MEDS ORDERED: ONDANSETRON HCL INJ/PF 4 MG/2 ML SDV ONE (11:27)
[2019-07-20] MEDS ORDERED: FENTANYL CITRATE INJ/PF 100 MCG/2 ML AMPUL ONE (11:27)
[2019-07-20] MEDS ORDERED: MIDAZOLAM 2 MG/2 ML INJ ONE (11:27)
[2019-07-20] MEDS ORDERED: EPINEPHRINE INJ 1 MG/10 ML DISP.SYRIN ONE (11:28)
[2019-07-20] MEDS ORDERED: GLUCAGON,HUMAN RECOMB 1 MG INJ ONE (11:28)
--- NOTE | 2019-07-20 11:59 | Operative Report ---
Operative Report DATE OF SURGERY: 07/20/19 Operative Report: The risks benefits and alternatives of the procedure explained to the patient in detail and informed consent is obtained.A GIF Olympus video scope was inserted into the patient's mouth and hypopharynx ,the esophagus is identified intubated and insufflated, the scope was then advanced through the esophagus stomach and duodenum, retroflexion maneuver is done, the esophagus stomach and first and second portions of the duodenum examined PREOPERATIVE DIAGNOSIS: Possible GI bleed POSTOPERATIVE DIAGNOSIS: Gastritis status post biopsy. Hiatal hernia OPERATION: EGD with biopsy SURGEON: HERBIE VILLANUEVA ANESTHESIA: Moderate Sedation - 2 mg of Versed. Conscious sedation monitoring time 30 minutes. TISSUE REMOVED OR ALTERED: As noted above. COMPLICATIONS: None. ESTIMATED BLOOD LOSS: None. INTRAOPERATIVE FINDINGS: As noted above. PROCEDURE: Patient tolerated the procedure well. She is sent back to her room in good condition. We will follow-up on biopsy. Consider outpatient colonoscopy. Resume regular diet. Resume regular activity level. PPI as an outpatient for 8 weeks then discontinue.
--- NOTE | 2019-07-20 15:39 | RADIOLOGY REPORT (SQ) ---
EXAM DESCRIPTION: CHEST SINGLE VIEW COMPLETED DATE/TIME: 07/20/2019 3:25 pm REASON FOR STUDY: reassess congestion COMPARISON: 07/18/2019 NUMBER OF VIEWS: One view. TECHNIQUE: Single frontal radiographic image of the chest acquired. LIMITATIONS: None. FINDINGS: LUNGS AND PLEURA: Small pleural effusions. Improved aeration in the right upper lung. Re sidual airspace disease left lower lobe. MEDIASTINUM AND HEART: Stable heart size and mediastinal structures. SUPPORT DEVICES: Appropriate location without change. BONY STRUCTURES: No acute findings. HARDWARE: None. OTHER: No other significant finding. IMPRESSION: Improving pneumonia or asymmetric edema. Reading location - IP/workstation name: [email or web address]
--- NOTE | 2019-07-20 17:07 | PDOC PROGRESS REPORT ---
Subjective Progress Note for:: 07/20/19 Subjective:: Patient was admitted for a likely upper GI bleed. She was given 2 units of packed RBCs. She developed tachycardia and slight shortness of breath and was not able to complete the second unit. 07/19: Her hemoglobin however has significantly improved to 11.9. She says she still had black stools but this has been going on for almost a year now. Otherwise, no other acute event overnight. Upon encounter, she appears comfortable and denies any other acute complaint. No nausea, hematemesis or abdominal pain. Patient was seen by GI and will be scheduled for an EGD and possible colonoscopy. 07/20: No acute event overnight. She denies acute complaints. EGD showed gastritis. Chest x-ray shows some improvement in the interstitial edema. Reason For Visit: AFIB ANEMIA Physical Exam Vital Signs: Temp Pulse Resp BP Pulse Ox 98.3 F 102 H 20 160/76 H 95 07/20/19 07:48 07/20/19 12:15 07/20/19 12:15 07/20/19 12:15 07/20/19 12:15 Intake & Output 07/19/19 07/20/19 07/21/19 06:59 06:59 06:59 Intake Total 974.8 360 250 Output Total 2500 700 Balance -1525.2 -340 250 Weight 110 lb 3.698 oz 112 lb 14.027 oz General appearance: PRESENT: no acute distress, well-developed, well-nourished Head exam: PRESENT: atraumatic, normocephalic Eye exam: PRESENT: conjunctiva pink, EOMI, PERRLA. ABSENT: scleral icterus Ear exam: PRESENT: normal external ear exam Mouth exam: PRESENT: moist, tongue midline Neck exam: ABSENT: carotid bruit, JVD, lymphadenopathy, thyromegaly Respiratory exam: PRESENT: clear to auscultation raz. ABSENT: rales, rhonchi, wheezes Cardiovascular exam: PRESENT: RRR. ABSENT: diastolic murmur, rubs, systolic murmur Pulses: PRESENT: normal dorsalis pedis pul GI/Abdominal exam: PRESENT: normal bowel sounds, soft. ABSENT: distended, guarding, mass, organolmegaly, rebound, tenderness Rectal exam: PRESENT: deferred Extremities exam: PRESENT: full ROM. ABSENT: calf tenderness, clubbing, pedal edema Neurological exam: PRESENT: alert, awake, oriented to person, oriented to place, oriented to time, oriented to situation, CN II-XII grossly intact. ABSENT: motor sensory deficit Results Laboratory Results: 07/20/19 05:51 07/19/19 02:21 07/20/19 05:51 WBC 4.8 RBC 3.80 Hgb 10.3 L Hct 31.3 L MCV 83 MCH 27.2 MCHC 33.0 RDW 15.8 H Plt Count 108 L Seg Neutrophils % Not Reportable 07/18/19 13:00 NT-Pro-B Natriuret Pep 4090 H Impressions: Chest X-Ray 07/18/19 20:39 IMPRESSION: Moderate mixed interstitial and airpace opacities. Differential diagnosis includes pulmonary edema, multifocal pneumonia, and chronic interstitial lung disease. Assessment and Plan - Diagnosis (1) GI bleed Is this a current diagnosis for this admission?: Yes Plan: Hb significantly improved to 11.9. Continue IV Protonix. Patient was seen by GI and will be scheduled for an EGD and possible colonoscopy. 07/20: EGD showed gastritis. Hb stable. Switch IV Protonix to PO. (2) Acute blood loss anemia Is this a current diagnosis for this admission?: Yes Plan: As per #1. (3) Interstitial edema Is this a current diagnosis for this admission?: Yes Plan: Related to pRBC transfusion. Repeat CXR shows improvement. (4) Atrial fibrillation Qualifiers: Is this a current diagnosis for this admission?: Yes Plan: Xarelto held due to GI bleed.
[2019-07-20] MEDS: ACETAMINOPHEN 325 MG TABLET PO PRN (21:16)
[2019-07-21] MEDS: ACETAMINOPHEN 325 MG TABLET PO PRN (03:18)
[2019-07-21] MEDS: PANTOPRAZOLE SODIUM 40 MG VIAL IV PRN (03:19)
[2019-07-21 05:41] LABS: ABSOLUTE LYMPHOCYTES (AUTO) 1.3 10^3/uL (0.5-4.7); ABSOLUTE MONOCYTES (AUTO) 1.3 10^3/uL (0.1-1.4); ABSOLUTE NEUT (AUTO) 4.5 10^3/uL (1.7-8.2); BASOPHILS % (AUTO) 0.2 % (0-2); EOSINOPHILS % (AUTO) 0.7 % (0-6); HEMATOCRIT 29.8 % (36.0-47.0); HEMOGLOBIN 9.9 g/dL (12.0-15.5); LYMPHOCYTES % (AUTO) 18.4 % (13-45); MEAN CORPUSCULAR HEMOGLOBIN 27.2 pg (27.0-33.4); MEAN CORPUSCULAR HGB CONC 33.1 g/dL (32.0-36.0); MEAN CORPUSCULAR VOLUME 82 fl (80-97); MONOCYTES % (AUTO) 18.4 % (3-13); PLATELET COUNT 118 10^3/uL (150-450); RED BLOOD COUNT 3.63 10^6/uL (3.72-5.28); RED CELL DISTRIBUTION WIDTH 15.8 % (11.5-14.0); SEGMENTED NEUTROPHILS % (AUTO) 62.3 % (42-78); TOTAL CELLS COUNTED % (AUTO) 100 %; WHITE BLOOD COUNT 7.2 10^3/uL (4.0-10.5)
[2019-07-21 09:31] VITALS: BP 108/62
[2019-07-21] MEDS: METOPROLOL SUCCINATE 50 MG TAB.SR.24H PO SCH (10:09)
[2019-07-21] MEDS: DOCUSATE SODIUM 100 MG CAPSULE PO SCH (10:10)
[2019-07-21] MEDS: ASPIRIN 81 MG TABLET, CHEWABLE PO SCH (10:10)
--- NOTE | 2019-07-22 15:24 | PDOC DISCHARGE SUMMARY ---
Impression - Admit/DC Date/PCP Admission Date/Primary Care Provider: 07/18/19 23:21 THUAN ESCOBAR MD Discharge Date: 07/22/19 - Discharge Diagnosis (1) GI bleed Is this a current diagnosis for this admission?: Yes (2) Acute blood loss anemia Is this a current diagnosis for this admission?: Yes (3) Interstitial edema Is this a current diagnosis for this admission?: Yes (4) Atrial fibrillation Is this a current diagnosis for this admission?: Yes - Additional Information Resuscitation Status: Full Code Discharge Activity: Activity As Tolerated, Balance Activity w/Rest, Other Referrals: THUAN ESCOBAR MD [Primary Care Provider] - 08/01/19 1:30 pm HERBIE VILLANUEVA MD [ACTIVE STAFF] - 08/03/19 10:30 am Prescriptions: Aspirin [Aspirin 81 mg Chewable Tablet] 81 mg PO DAILY #30 tab.chew Pantoprazole Sodium [Protonix] 40 mg PO DAILY #30 tablet. Home Medications: Atorvastatin Calcium [Lipitor 80 mg Tablet] 80 mg PO MOWEFR@22 06/24/16 Cyanocobalamin (Vitamin B-12) [B-12] 1,000 mcg PO DAILY 06/24/16 Metoprolol Succinate [Toprol XL 200 mg Tablet] 200 mg PO DAILY 06/24/16 Lisinopril 20 mg PO DAILY 08/30/17 Acetaminophen [Tylenol Extra Strength 500 mg Tablet] 500 mg PO Q12 07/19/19 Montelukast Sodium [Singulair 10 mg Tablet] 10 mg PO QHS 07/19/19 Aspirin [Aspirin 81 mg Chewable Tablet] 81 mg PO DAILY #30 tab.chew 07/21/19 Pantoprazole Sodium [Protonix] 40 mg PO DAILY #30 tablet. 07/21/19 History of Present Illiness History of Present Illness: Admitting hospitalist's H&P: ROBINSON HAMM is a 88 year old female with a past medical history of coronary artery disease status post stent x3, paroxysmal atrial fibrillation on Xarelto and TIA. She presents after primary care labs reveal anemia. In the emergency room she is found to have A. fib with RVR, and hemoglobin of only 7.8 from 12 6 months ago and heme occult positive stools. She received 2 units of packed red blood cells and has subsequent shortness of breath. She is referred to the hospitalist for admission denying chest pain. She denies abdominal pain, change in bowel habits but admits chronic black stool. She admits NSAID use with Xarelto, without GI prophylaxis. Her daughter of colon cancer. Hospital Course Hospital Course: Patient was admitted for a likely upper GI bleed. She was given 2 units of packed RBCs. She did develop tachycardia and slight shortness of breath and was not able to complete the second unit. She was seen by GI and EGD was done which showed gastritis. Her hemoglobin did improve and stabilized. GI recommended outpatient follow-up for possible colonoscopy. Discussed in length about the risk and benefits of anticoagu lation. Patient and family are amenable to holding off on her Xarelto at this time until she follows up with her PCP and GI. She will be kept on aspirin alone for her A. fib. Physical Exam Vital Signs: Temp Pulse Resp BP Pulse Ox 97.7 F 99 17 108/62 93 07/21/19 09:25 07/21/19 09:25 07/21/19 09:25 07/21/19 09:25 07/21/19 09:25 Intake & Output 07/20/19 07/21/19 07/22/19 06:59 06:59 06:59 Intake Total 360 1330 Output Total 700 Balance -340 1330 Weight 112 lb 14.027 oz 117 lb 11.629 oz General appearance: PRESENT: no acute distress, well-developed, well-nourished Head exam: PRESENT: atraumatic, normocephalic Eye exam: PRESENT: conjunctiva pink, EOMI, PERRLA. ABSENT: scleral icterus Ear exam: PRESENT: normal external ear exam Mouth exam: PRESENT: moist, tongue midline Neck exam: ABSENT: carotid bruit, JVD, lymphadenopathy, thyromegaly Respiratory exam: PRESENT: clear to auscultation raz. ABSENT: rales, rhonchi, wheezes Cardiovascular exam: PRESENT: irregular rhythm. ABSENT: systolic murmur Pulses: PRESENT: normal dorsalis pedis pul GI/Abdominal exam: PRESENT: normal bowel sounds, soft. ABSENT: distended, guarding, mass, organolmegaly, rebound, tenderness Rectal exam: PRESENT: deferred Extremities exam: PRESENT: full ROM. ABSENT: calf tenderness, clubbing, pedal edema Results Laboratory Results: WBC 7.2 10^3/uL (4.0-10.5) 07/21/19 04:34 RBC 3.63 10^6/uL (3.72-5.28) L 07/21/19 04:34 Hgb 9.9 g/dL (12.0-15.5) L 07/21/19 04:34 Hct 29.8 % (36.0-47.0) L 07/21/19 04:34 MCV 82 fl (80-97) 07/21/19 04:34 MCH 27.2 pg (27.0-33.4) 07/21/19 04:34 MCHC 33.1 g/dL (32.0-36.0) 07/21/19 04:34 RDW 15.8 % (11.5-14.0) H 07/21/19 04:34 Plt Count 118 10^3/uL (150-450) L 07/21/19 04:34 Lymph % (Auto) 18.4 % (13-45) 07/21/19 04:34 [place] % (Auto) 18.4 % (3-13) H 07/21/19 04:34 Eos % (Auto) 0.7 % (0-6) 07/21/19 04:34 Baso % (Auto) 0.2 % (0-2) 07/21/19 04:34 Reticulocyte # 0.079 10^6/uL (0.028-0.122) 07/19/19 02:21 Absolute Neuts (auto) 4.5 10^3/uL (1.7-8.2) 07/21/19 04:34 Absolute Lymphs (auto) 1.3 10^3/uL (0.5-4.7) 07/21/19 04:34 Absolute Monos (auto) 1.3 10^3/uL (0.1-1.4) 07/21/19 04:34 Absolute Eos (auto) 0.0 10^3/uL (0.0-0.6) 07/21/19 04:34 Absolute Basos (auto) 0.0 10^3/uL (0.0-0.2) 07/21/19 04:34 Total Counted 100 07/20/19 05:51 Seg Neutrophils % 62.3 % (42-78) 07/21/19 04:34 Seg Neuts % (Manual) 59 % (42-78) 07/20/19 05:51 Lymphocytes % (Manual) 16 % (13-45) 07/20/19 05:51 Atypical Lymphs % 2 % (0) 07/20/19 05:51 Monocytes % (Manual) 22 % (3-13) H 07/20/19 05:51 Eosinophils % (Manual) 1 % (0-6) 07/20/19 05:51 Basophils % (Manual) 0 % (0-2) 07/20/19 05:51 Abs Neuts (Manual) 2.8 10^3/uL (1.7-8.2) 07/20/19 05:51 Abs Lymphs (Manual) 0.9 10^3/uL (0.5-4.7) 07/20/19 05:51 Abs Monocytes (Manual) 1.1 10^3/uL (0.1-1.4) 07/20/19 05:51 Absolute Eos (Manual) 0.0 10^3/uL (0.0-0.6) 07/20/19 05:51 Abs Basophils (Manual) 0.0 10^3/uL (0.0-0.2) 07/20/19 05:51 Reticulocyte # (manual) Cancelled 07/18/19 13:00 Toxic Vacuolation PRESENT 07/20/19 05:51 Platelet Comment DECREASED 07/20/19 05:51 Polychromasia SLIGHT 07/18/19 13:00 Poikilocytosis 1+ 07/18/19 13:00 Anisocytosis 1+ 07/20/19 05:51 Ovalocytes SLIGHT 07/18/19 13:00 Schistocytes 1+ 07/18/19 13:00 Retic Count Cancelled 07/18/19 13:00 Retic Count (manual) Cancelled 07/18/19 13:00 Retic Count (auto) 1.81 % (0.66-2.85) 07/19/19 02:21 Absolute Retic Cancelled 07/18/19 13:00 PT 19.6 SEC (11.4-15.4) H 07/19/19 02:21 INR 1.64 07/19/19 02:21 Sodium 138.7 mmol/L (137-145) 07/19/19 02:21 Potassium 4.6 mmol/L (3.6-5.0) 07/19/19 02:21 Chloride 105 mmol/L (98-107) 07/19/19 02:21 Carbon Dioxide 19 mmol/L (22-30) L 07/19/19 02:21 Anion Gap 15 (5-19) 07/19/19 02:21 BUN 28 mg/dL (7-20) H 07/19/19 02:21 Creatinine 1.01 mg/dL (0.52-1.25) 07/19/19 02:21 Est GFR ( Amer) > 60 (>60) 07/19/19 02:21 Est GFR (MDRD) Non-Af 52 (>60) L 07/19/19 02:21 Glucose 106 mg/dL (75-110) 07/19/19 02:21 Calcium 9.3 mg/dL (8.4-10.2) 07/19/19 02:21 Magnesium 2.1 mg/dL (1.6-2.3) 07/18/19 13:00 Iron 24.6 ug/dL (37-170) L 07/18/19 13:00 TIBC 401 ug/dL (250-450) 07/18/19 13:00 % Saturation 6 % 07/18/19 13:00 Ferritin 25.50 ng/mL (11.1-264.0) 07/18/19 13:00 Total Bilirubin 0.6 mg/dL (0.2-1.3) 07/18/19 13:00 Direct Bilirubin 0.2 mg/dL (0.0-0.4) 07/18/19 13:00 Neonat Total Bilirubin Not Reportable 07/18/19 13:00 Neonat Direct Bilirubin Not Reportable 07/18/19 13:00 Neonat Indirect Bili Not Reportable 07/18/19 13:00 AST 48 U/L (14-36) H 07/18/19 13:00 ALT 35 U/L (<35) 07/18/19 13:00 Alkaline Phosphatase 180 U/L (38-126) H 07/18/19 13:00 NT-Pro-B Natriuret Pep 4090 pg/mL (<450) H 07/18/19 13:00 Total Protein 6.3 g/dL (6.3-8.2) 07/18/19 13:00 Albumin 3.3 g/dL (3.5-5.0) L 07/18/19 13:00 Lipase 119.6 U/L (23-300) 07/18/19 13:00 Vitamin B12 > 1000.0 pg/mL (239-931) H 07/18/19 13:00 Folate > 20.00 ng/mL (>2.76) 07/18/19 13:00 TSH 2.89 uIU/mL (0.47-4.68) 07/18/19 13:00 Urine Color YELLOW 07/18/19 13:39 Urine Appearance CLEAR 07/18/19 13:39 Urine pH 5.0 (5.0-9.0) 07/18/19 13:39 Ur Specific [place] 1.013 07/18/19 13:39 Urine Protein NEGATIVE mg/dL (NEGATIVE) 07/18/19 13:39 Urine Glucose (UA) NEGATIVE mg/dL (NEGATIVE) 07/18/19 13:39 Urine Ketones NEGATIVE mg/dL (NEGATIVE) 07/18/19 13:39 Urine Blood NEGATIVE (NEGATIVE) 07/18/19 13:39 Urine Nitrite (Reflex) NEGATIVE (NEGATIVE) 07/18/19 13:39 Urine Bilirubin NEGATIVE (NEGATIVE) 07/18/19 13:39 Urine Urobilinogen NEGATIVE mg/dL (<2.0) 07/18/19 13:39 Leukocyte Esterase Rfl NEGATIVE (NEGATIVE) 07/18/19 13:39 Urine RBC (Auto) 1 /HPF 07/18/19 13:39 U Hyaline Cast (Auto) 7 /LPF 07/18/19 13:39 Urine WBC (Reflex) 1 /HPF 07/18/19 13:39 Squamous Epi Cells Auto <1 /HPF 07/18/19 13:39 Urine Mucus (Auto) RARE /LPF 07/18/19 13:39 Urine Ascorbic Acid NEGATIVE (NEGATIVE) 07/18/19 13:39 POC Stool Occult Blood POSITIVE (NEGATIVE) 07/18/19 14:13 Blood Type A POSITIVE 07/18/19 13:00 Blood Type Confirm A POSITIVE 07/18/19 15:48 Antibody Screen NEGATIVE 07/18/19 13:00 Crossmatch See Detail 07/18/19 13:00 07/18/19 13:00 NT-Pro-B Natriuret Pep 4090 H Impressions: Chest X-Ray 07/18/19 20:39 IMPRESSION: Moderate mixed interstitial and airpace opacities. Differential diagnosis includes pulmonary edema, multifocal pneumonia, and chronic interstitial lung disease. Chest X-Ray 07/20/19 14:00 IMPRESSION: Improving pneumonia or asymmetric edema. Stroke Is this a Stroke Patient?: No Acute Heart Failure - Is this a Heart Failure Patient?: No
== END 2019-07-21 10:51 | disposition home health service (06) | DRG 378 ==
LOC: ER 12:21 → EH 23:21 → 3N 07-19 01:59
PROVIDERS: ADMIT Internal Medicine; ATTEND Internal Medicine
PROC: 5A09457 Assistance with Respiratory Ventilation, 24-96 Consecutive Hours, Continuous Positive Airway Pressure (ICD-10-PCS; 2019-07-18)
PROC: 30233N1 Transfusion of Nonautologous Red Blood Cells into Peripheral Vein, Percutaneous Approach (ICD-10-PCS; 2019-07-18)
PROC: 0DB78ZX Excision of Stomach, Pylorus, Via Natural or Artificial Opening Endoscopic, Diagnostic (ICD-10-PCS; principal; 2019-07-20 12:00)
DX: K92.1 Melena (principal); D62 Acute posthemorrhagic anemia; J84.9 Interstitial pulmonary disease, unspecified; I25.10 Atherosclerotic heart disease of native coronary artery without angina pectoris; I48.0 Paroxysmal atrial fibrillation; E78.5 Hyperlipidemia, unspecified; I10 Essential (primary) hypertension; F32.9 Major depressive disorder, single episode, unspecified; K29.70 Gastritis, unspecified, without bleeding; K44.9 Diaphragmatic hernia without obstruction or gangrene; E78.00 Pure hypercholesterolemia, unspecified; Z60.2 Problems related to living alone; Z95.5 Presence of coronary angioplasty implant and graft; Z79.01 Long term (current) use of anticoagulants; Z86.73 Personal history of transient ischemic attack (TIA), and cerebral infarction without residual deficits; Z79.899 Other long term (current) drug therapy; Z88.3 Allergy status to other anti-infective agents; Z95.0 Presence of cardiac pacemaker
CPT/HCPCS: 36415; 36430; 71045; 80048; 80053; 81001; 82607; 82728; 82746; 83540; 83550; 83690; 83735; 83880; 84443; 85025; 85045; 85610; 86850; 86900; 86901; 86920; 88305; 94660; 96374; 99285; C9113; J0171; J1200; J1610; J1756; J1940; J2250; J2310; J2405; J3010; J3490; P9016

== ENCOUNTER 2019-10-18 19:48 | Emergency (ER) | payer MEDICARE ==
--- NOTE | 2019-10-18 21:16 | ER Document Report ---
ED Extremity Problem, Lower - General Chief Complaint: Swelling of Lower Extremity Stated Complaint: SWELLING TO EXTREMITIES Time Seen by Provider: 10/18/19 21:12 Primary Care Provider: THUAN ESCOBAR MD [Primary Care Provider] - Follow up as needed Notes: Patient is an 89-year-old female that comes emergency department for chief complaint of left lower extremity swelling and pain. She states that on (almost 6 days ago) she had a mechanical fall where she tripped, she hit her left lower leg on the inner aspect on a lamp, she fell and had a skin tear to her right arm with bruising to her arm, she has a bruise to her right mandible area. She states she was already evaluated and had "tons of images". She states she came in tonight because she started having pain and swelling in the dressing that she had over her left lower extremity, she states she finally took this off and saw that it was swollen so she came in for evaluation. She denies any pain currently, she denies fever/chills, nausea/vomiting, headache. She denies history of blood clots. She has a history of atrial fibrillation, AICD, she used to be on Xarelto but had a GI bleed so now she is just on aspirin. She admits that she missed her Toprol-XL 200 mg dose today. She denies chest pain. TRAVEL OUTSIDE OF THE [place] IN LAST 30 DAYS: No - Related Data Allergies/Adverse Reactions: nitrofurantoin [From Macrobid] Allergy (Verified 07/18/19 12:28) Past Medical History - General Information source: Patient, Relative - Social History Smoking Status: Never Smoker Frequency of alcohol use: None Drug Abuse: None Lives with: Family Family History: Reviewed & Not Pertinent Patient has suicidal ideation: No Patient has homicidal ideation: No - Past Medical History Cardiac Medical History: Reports: Hx Atrial Fibrillation, Hx Coronary Artery Disease, Hx Hypercholesterolemia, Hx Hypertension Denies: Hx Congestive Heart Failure, Hx DVT, Hx Heart Attack, Hx Pulmonary Embolism Pulmonary Medical History: Reports: Hx Asthma Denies: Hx Bronchitis, Hx COPD, Hx Pneumonia, Hx Sleep Apnea, Hx Tuberculosis Neurological Medical History: Denies: Hx Cerebrovascular Accident, Hx Seizures, Hx Parkinson's Disease Endocrine Medical History: Denies: Hx Diabetes Mellitus Type 1, Hx Diabetes Me llitus Type 2, Hx Hyperthyroidism, Hx Hypothyroidism Renal/ Medical History: Denies: Hx End Stage Renal Disease, Hx Kidney Stones, Hx Peritoneal Dialysis GI Medical History: Denies: Hx Cirrhosis, Hx Gastroesophageal Reflux Disease, Hx Hepatitis, Hx Ulcer Musculoskeletal Medical History: Reports Hx Arthritis - R.shoulder , Denies Hx Multiple Sclerosis Psychiatric Medical History: Denies: Hx Bipolar Disorder, Hx Depression, Hx Schizophrenia Infectious Medical History: Denies: Hx C-Diff, Hx Hepatitis, Hx MRSA Past Surgical History: Reports: Hx Cardiac Catheterization - cardiac stents x 2, Hx Cardiac Surgery - pacemaker, Hx Cholecystectomy, Hx Coronary Stent - x 3; last 2014, Hx Genitourinary Surgery - bladder tac, vaginal mesh, Hx Hysterec ai, Hx Orthopedic Surgery - Right Hip, Hx Pacemaker - Immunizations Hx Diphtheria, Pertussis, Tetanus Vaccination: Yes Review of Systems - Review of Systems Constitutional: No symptoms reported EENT: No symptoms reported Cardiovascular: No symptoms reported Respiratory: No symptoms reported Gastrointestinal: No symptoms reported Genitourinary: No symptoms reported Female Genitourinary: No symptoms reported Musculoskeletal: See HPI Skin: See HPI Hematologic/Lymphatic: See HPI Neurological/Psychological: No symptoms reported Physical Exam - Vital signs Vitals: Pulse Ox 97 10/18/19 20:03 - Notes Notes: GENERAL: Alert, interacts well. No acute distress. HEAD: Normocephalic, faint fading bruise over the right proximal mandible EYES: Pupils equal, round, and reactive to light. Extraocular movements intact. ENT: Oral mucosa moist, tongue midline. Oropharynx unremarkable. LUNGS: Clear to auscultation bilaterally, no wheezes, rales, or rhonchi. No respiratory distress. HEART: Regular rate and rhythm. No murmur ABDOMEN: Soft, non-tender. Non-distended. Bowel sounds present in all 4 quadrants. GENITOURINARY: Deferred EXTREMITIES: Left lower extremity with a distal medial area of hematoma which is about 5 cm in width. There is surrounding ecchymosis as well. There is no overt erythema or warmth to the area. Normal ankle, foot, knee exams. Normal distal neurovascular exam. Unremarkable otherwise except for skin tear to the right mid forearm. BACK: no cervical, thoracic, lumbar midline tenderness. No saddle anesthesia, normal distal neurovascular exam. Moves all extremities in full range of motion. NEUROLOGICAL: Alert and oriented x3. Normal speech. Cranial nerves II through XII grossly intact. PSYCH: Normal affect, normal mood. SKIN: Warm, dry, normal turgor. No rashes or lesions noted. Course - Re-evaluation Re-evalutation: Patient has a hematoma on exam with some swelling over the area but no evidence of infection (no noted erythema, warmth, concerning skin tenderness, streaking redness away from the area). Patient has no fever, no leukocytosis, no concerning red blood cell counts. Patient is very hypertensive but missed her medications. She was given a dose of this for the extended release. She does not have a headache or chest pain, she has no other complaints. Venous Doppler is negative for blood clot, evaluation is negative except for uncontrolled hypertension and the hematoma from the injury. Discussed details with patient. Patient is very pleased with this, provided with copy of her results on request, discussed resuming her blood pressure and having this rechecked, discussed care of the hematoma and discussed return precautions in detail. Patient and family state understanding and agreement. Stable at time of discharge. - Vital Signs Vital signs: Temp Pulse Resp BP Pulse Ox 98.1 F 19 182/81 H 97 10/19/19 00:35 10/19/19 00:47 10/19/19 00:47 10/19/19 00:47 - Laboratory Result Diagrams: 10/18/19 20:04 10/18/19 20:04 Laboratory results interpreted by me: 10/18/19 10/18/19 20:04 20:04 RDW 20.7 H [place] % (Auto) 14.0 H Carbon Dioxide 32 H Discharge - Discharge Clinical Impression: Left leg pain, Hematoma Condition: Stable Disposition: HOME, SELF-CARE Additional Instructions: The ultrasound is negative for clot. The labs are normal. Your evaluation indicates a hematoma in the left lower extremity but no other concerning findings. This will gradually resolve with time. Follow-up closely with primary care for additional management. Return if you worsen including developing or spreading redness, fever, severe pain, or any other concerning or worsening symptoms. Referrals: THUAN ESCOBAR MD [Primary Care Provider] - Follow up as needed
[2019-10-18] MEDS ORDERED: METOPROLOL SUCCINATE 50 MG TAB.SR.24H PO ONE (21:56)
[2019-10-18 23:41] LABS: ANION GAP 7 (5-19); BLOOD UREA NITROGEN 17 mg/dL (7-20); CALCIUM 9.3 mg/dL (8.4-10.2); CARBON DIOXIDE 32 mmol/L (22-30); CHLORIDE 100 mmol/L (98-107); GLUCOSE 100 mg/dL (75-110); POTASSIUM 3.9 mmol/L (3.6-5.0)
[2019-10-18 23:52] LABS: ABSOLUTE BASOPHILS # (AUTO) 0.1 10^3/uL (0.0-0.2); ABSOLUTE EOSINOPHILS # (AUTO) 0.1 10^3/uL (0.0-0.6); ABSOLUTE LYMPHOCYTES (AUTO) 1.2 10^3/uL (0.5-4.7); ABSOLUTE NEUT (AUTO) 4.6 10^3/uL (1.7-8.2); BASOPHILS % (AUTO) 0.8 % (0-2); EOSINOPHILS % (AUTO) 1.6 % (0-6); HEMATOCRIT 36.7 % (36.0-47.0); HEMOGLOBIN 12.2 g/dL (12.0-15.5); LYMPHOCYTES % (AUTO) 17.8 % (13-45); MEAN CORPUSCULAR HEMOGLOBIN 29.6 pg (27.0-33.4); MEAN CORPUSCULAR HGB CONC 33.3 g/dL (32.0-36.0); MEAN CORPUSCULAR VOLUME 89 fl (80-97); PLATELET COUNT 155 10^3/uL (150-450); RED BLOOD COUNT 4.13 10^6/uL (3.72-5.28); RED CELL DISTRIBUTION WIDTH 20.7 % (11.5-14.0); SEGMENTED NEUTROPHILS % (AUTO) 65.8 % (42-78); TOTAL CELLS COUNTED % (AUTO) 100 %
[2019-10-19 00:15] LABS: ANISOCYTOSIS 2+; SCHISTOCYTES SLIGHT
[2019-10-19 00:16] LABS: BURR CELLS 1+; PLATELET COMMENT ADEQUATE
[2019-10-19 00:48] VITALS: BP 182/81
--- NOTE | 2019-10-19 08:36 | XCELERA REPORT ---
[address] [facility] [address] Lower Extremity Venous Evaluation Procedure: Color flow and duplex imaging of the veins of the left lower extremity as well as the right Common Femoral vein. Right Sided Venous Evaluation The right common femoral vein is fully compressible. Spontaneous and phasic flow is present in the right common femoral vein. Left Sided Venous Evaluation Normal vessel filling wall to wall, compression and augmentation as well as Colour flow down to the infrageniculate veins. Interpretation Summary No duplex evidence of DVT or obstruction in the left lower extremity nor in the right Common Femoral vein. Name: ROBINSON HAMM Jose F Age: 89 yrs Gender: Female : 1930 Patient Status: Emergency Patient Location: ER Study Date: 10/18/2019 09:21 PM Reason For Study: left LE swelling Ordering Physician: OMAR MCCORMACK Performed By: Ladonna Palomino : OMAR MCCORMACK > Keyshawn Collins
== END 2019-10-19 01:08 | disposition home or self-care (01) ==
LOC: ER 19:48
DX: S80.12XA Contusion of left lower leg, initial encounter (principal); M79.605 Pain in left leg; M79.89 Other specified soft tissue disorders; W01.0XXA Fall on same level from slipping, tripping and stumbling without subsequent striking against object, initial encounter; Z79.01 Long term (current) use of anticoagulants; Z79.899 Other long term (current) drug therapy; I25.10 Atherosclerotic heart disease of native coronary artery without angina pectoris; I10 Essential (primary) hypertension; J45.909 Unspecified asthma, uncomplicated
CPT/HCPCS: 36415; 85025; 80048; 93971; A9270

== ENCOUNTER → 2019-11-02 | Day surgery (SDC) | payer MEDICARE ==
[~2019-11-02] MED LIST: BUPIVACAINE HCL 0.5 % INJ/PF 30 ML SDV ONE; LIDOCAINE 1% INJ-PF (10 MG/ML) 30 ML SDV ONE; METHYLPREDNISOLONE ACETATE INJ 80 MG/1 ML VIAL ONE
--- NOTE | 2019-11-02 14:38 | RADIOLOGY REPORT (SQ) ---
EXAM DESCRIPTION: INJECT/ASPIR HIP/SHLDR/KNEE; FLUORO/NEEDLE PLACEMENT COMPLETED DATE/TIME: 11/02/2019 1:45 pm; 11/02/2019 1:46 pm REASON FOR STUDY: M16.12 UNILATERAL PRIMARY OSTEOARTHRITIS, LEFT HIP M16.12 UNILATERAL PRIMARY OSTE OARTHRITIS, LEFT HIP COMPARISON: None. FLUOROSCOPY TIME: 9 seconds 1 images saved to PACS. LIMITATIONS: None. PROCEDURE: SITE OF INJECTION: Anterior left hip. LOCALIZING CONTRAST TYPE AND DOSE: 0.5 cc Omnipaque. MEDICATION TYPE AND DOSE: 80 mg Depo-Medrol. 5 cc bupivacaine. Using local anesthesia and sterile technique with fluoroscopic guidance, the needle was advanced into the joint. Iodinated contrast was injected to verify intraarticular placement. This was followed by therapeutic injection of the indicated medications. The needle was removed. There were no immediat e complications. Preprocedure pain level: 3/5. Postprocedure pain level: 0/5. IMPRESSION: THERAPEUTIC INJECTION OF THE left hip JOINT ABOVE. COMMENT: Patient medication list reviewed: Yes- Quality ID# [id number]:Eligible professional attests to doc umenting in the medical record they obtained, updated, or reviewed the patient's current medications. . Quality ID 145: Final reports for procedures using fluoroscopy that document radiation exposure can carmelita, or exposure time and number of fluorographic images (if radiation exposure indices are not avail able) TECHNICAL DOCUMENTATION: JOB ID: [id number] 2010 [employer]- All Rights Reserved Reading location - IP/workstation name: [email or web address]
--- NOTE | 2019-11-02 14:38 | RADIOLOGY REPORT (SQ) ---
EXAM DESCRIPTION: INJECT/ASPIR HIP/SHLDR/KNEE; FLUORO/NEEDLE PLACEMENT COMPLETED DATE/TIME: 11/02/2019 1:45 pm; 11/02/2019 1:46 pm REASON FOR STUDY: M16.12 UNILATERAL PRIMARY OSTEOARTHRITIS, LEFT HIP M16.12 UNILATERAL PRIMARY OSTE OARTHRITIS, LEFT HIP COMPARISON: None. FLUOROSCOPY TIME: 9 seconds 1 images saved to PACS. LIMITATIONS: None. PROCEDURE: SITE OF INJECTION: Anterior left hip. LOCALIZING CONTRAST TYPE AND DOSE: 0.5 cc Omnipaque. MEDICATION TYPE AND DOSE: 80 mg Depo-Medrol. 5 cc bupivacaine. Using local anesthesia and sterile technique with fluoroscopic guidance, the needle was advanced into the joint. Iodinated contrast was injected to verify intraarticular placement. This was followed by therapeutic injection of the indicated medications. The needle was removed. There were no immediat e complications. Preprocedure pain level: 3/5. Postprocedure pain level: 0/5. IMPRESSION: THERAPEUTIC INJECTION OF THE left hip JOINT ABOVE. COMMENT: Patient medication list reviewed: Yes- Quality ID# [id number]:Eligible professional attests to doc umenting in the medical record they obtained, updated, or reviewed the patient's current medications. . Quality ID 145: Final reports for procedures using fluoroscopy that document radiation exposure can carmelita, or exposure time and number of fluorographic images (if radiation exposure indices are not avail able) TECHNICAL DOCUMENTATION: JOB ID: [id number] 2010 [employer]- All Rights Reserved Reading location - IP/workstation name: [email or web address]
== END ==
LOC: RAD 12:43
PROVIDERS: ATTEND Orthopaedic Surgery
DX: M16.12 Unilateral primary osteoarthritis, left hip (principal)
CPT/HCPCS: 20610; 77002; J3490 ×2; J1040

== ENCOUNTER 2020-03-27 06:08 | Emergency (ER) | payer MEDICARE ==
--- NOTE | 2020-03-27 06:40 | ER Document Report ---
ED Fall - General Mode of Arrival: Medic Information source: Patient, Relative - Daughter TRAVEL OUTSIDE OF THE [place] IN LAST 30 DAYS: No <CHRISTOPHER MOLINA - Last Filed: 03/27/20 08:51> <JIMBO PRUITT - Last Filed: 03/27/20 17:16> - General Chief Complaint: Fall Stated Complaint: FALL Time Seen by Provider: 03/27/20 06:21 Primary Care Provider: THUAN ESCOBAR MD [Primary Care Provider] - Follow up tomorrow (Call tomorrow for follow-up outpatient appointment as discussed.) SYDNEY SANTOS MD [ACTIVE PROVISIONAL STAFF] - Follow up in 3-5 days (Call tomorrow for an outpatient follow-up appointment.) Notes: Patient is 89-year-old female presents the emergency department via EMS. Patient fell tonight. She states she was ambulating into the bathroom when she tripped and fell. She denies striking her head, denies any loss of consciousness. Her daughter reports that lately she has been having episodes where she days is off, they have discussed this with her primary care provider who apparently tells them she is having intermittent TIAs. Patient is alert, oriented and denying any complaints. (CHRISTOPHER MOLINA) - Related data Allergies/Adverse Reactions: nitrofurantoin [From Macrobid] Allergy (Verified 07/18/19 12:28) Past Medical History - General Information source: Patient - Social History Smoking Status: Never Smoker Frequency of alcohol use: None Drug Abuse: None Family History: Reviewed & Not Pertinent - Past Medical History Cardiac Medical History: Reports: Hx Atrial Fibrillation, Hx Coronary Artery Disease, Hx Hypercholesterolemia, Hx Hypertension Denies: Hx Congestive Heart Failure, Hx DVT, Hx Heart Attack, Hx Pulmonary Embolism Pulmonary Medical History: Reports: Hx Asthma Denies: Hx Bronchitis, Hx COPD, Hx Pneumonia, Hx Sleep Apnea, Hx Tuberculosis Neurological Medical History: Denies: Hx Cerebrovascular Accident, Hx Seizures, Hx Parkinson's Disease Endocrine Medical History: Denies: Hx Diabetes Mellitus Type 1, Hx Diabetes Mellitus Type 2, Hx Hyperthyroidism, Hx Hypothyroidism Renal/ Medical History: Denies: Hx End Stage Renal Disease, Hx Kidney Stones, Hx Peritoneal Dialysis GI Medical History: Denies: Hx Cirrhosis, Hx Gastroesophageal Reflux Disease, Hx Hepatitis, Hx Ulcer Musculoskeletal Medical History: Reports Hx Arthritis - R.shoulder , Denies Hx Multiple Sclerosis Psychiatric Medical History: Denies: Hx Bipolar Disorder, Hx Depression, Hx Schizophrenia Infectious Medical History: Denies: Hx C-Diff, Hx Hepatitis, Hx MRSA Past Surgical History: Reports: Hx Cardiac Catheterization - cardiac stents x 2, Hx Cardiac Surgery - pacemaker, Hx Cholecystectomy, Hx Coronary Stent - x 3; last 2014, Hx Genitourinary Surgery - bladder tac, vaginal mesh, Hx Hysterectomy, Hx Orthopedic Surgery - Right Hip, Hx Pacemaker - Immunizations Hx Diphtheria, Pertussis, Tetanus Vaccination: Yes <CHRISTOPHER MOLINA - Last Filed: 03/27/20 08:51> Review of Systems - Review of Systems Constitutional: No symptoms reported EENT: No symptoms reported Cardiovascular: No symptoms reported Respiratory: No symptoms reported Gastrointestinal: No symptoms reported Genitourinary: No symptoms reported Female Genitourinary: No symptoms reported Musculoskeletal: See HPI Skin: See HPI Hematologic/Lymphatic: No symptoms reported <CHRISTOPHER MOLINA - Last Filed: 03/27/20 08:51> Physical Exam <CHRISTOPHER MOLINA - Last Filed: 03/27/20 08:51> - Vital signs Vitals: Resp 25 H 03/27/20 06:15 - Notes Notes: PHYSICAL EXAMINATION: GENERAL: Well-appearing, well-nourished and in no acute distress. HEAD: Atraumatic, normocephalic. EYES: Pupils equal round and reactive to light, extraocular movements intact, conjunctiva are normal. ENT: Nares patent, oropharynx clear without exudates. Moist mucous membranes. NECK: Normal range of motion, supple without lymphadenopathy LUNGS: Breath sounds clear to auscultation bilaterally and equal. No wheezes rales or rhonchi. HEART: Regular rate and rhythm without murmurs ABDOMEN: Soft, nontender, nondistended abdomen. No guarding, no rebound. No masses appreciated. Female : deferred Musculoskeletal: Swelling and deformity noted to right wrist. Strong radial pulse, cap refill less than 3 seconds. No pain with palpation on the pelvis. NEUROLOGICAL: Cranial nerves grossly intact. Normal speech. Normal sensory, motor exams PSYCH: Normal mood, normal affect. SKIN: Laceration/skin tear noted to right lower extremity over the anterior portion of the bautista. No active bleeding noted. (CHRISTOPHER MOLINA) Course - Laboratory Result Diagrams: 03/27/20 07:51 03/27/20 07:51 <EZEQUIELCHRISTOPHER Carlos - Last Filed: 03/27/20 08:51> - Laboratory Result Diagrams: 03/27/20 07:51 03/27/20 07:51 - Diagnostic Test Radiology reviewed: Reports reviewed - Consults Bella Orosco Time consulted: 12:45 - Recommends patient be seen by social work as she does not meet criteria for admission <JIMBO PRUITT - Last Filed: 03/27/20 17:16> - Re-evaluation Re-evalutation: Laboratory 03/27/20 03/27/20 03/27/20 07:51 07:51 07:51 WBC 8.6 RBC 4.09 Hgb 12.4 Hct 36.8 MCV 90 MCH 30.3 MCHC 33.7 RDW 16.1 H Plt Count 103 L Lymph % (Auto) 8.7 L Atlantic % (Auto) 5.4 Eos % (Auto) 0.7 Baso % (Auto) 0.6 Absolute Neuts (auto) 7.2 Absolute Lymphs (auto) 0.7 Absolute Monos (auto) 0.5 Absolute Eos (auto) 0.1 Absolute Basos (auto) 0.1 Seg Neutrophils % 84.6 H PT 13.9 INR 1.06 APTT 22.9 L Sodium 130.8 L Potassium 4.7 Chloride 98 Carbon Dioxide 27 Anion Gap 6 BUN 21 H Creatinine 0.60 Est GFR ( Amer) > 60 Est GFR (MDRD) Non-Af > 60 Glucose 103 Calcium 8.9 Total Bilirubin 0.9 Direct Bilirubin 0.0 Neonat Total Bilirubin Not Reportable Neonat Direct Bilirubin Not Reportable Neonat Indirect Bili Not Reportable AST 30 ALT 26 Alkaline Phosphatase 135 H Total Protein 6.2 L Albumin 3.4 L Lipase 71.[address] 03/27/20 06:35 IMPRESSION: Atrophy and chronic small vessel ischemic changes with no acute intracranial abnormality. Cervical Spine CT 03/27/20 06:36 IMPRESSION: No acute findings in the cervical spine. Wrist X-Ray 03/27/20 06:37 IMPRESSION: Nondisplaced fracture of the distal radius with intra-articular extension. Nondisplaced ulnar styloid fracture. copyright 2010 [employer]- All Rights Reserved Handoff given to Odalys Pruitt. Patient is in need of additional films as on reevaluation patient now has pain to the right hip. Patient also needs some type of closure done to the skin tear/laceration to her right lower extremity. Patient currently requesting additional pain medications, she states that the IV fentanyl made her feel crazy. We will order some p.o. Mcarthur. (CHRISTOPHER MOLINA) 03/27/20 08:25 assumed care from Christopher Molina [facility]STER 03/27/20 10:28 Reviewed xray results with patient and family. Aware of need for CT Extremity per radiologist reading of hip xray. Pain is improving. Patient agreeable to CT. 03/27/20 12:00 Reviewed CAT scan findings with patient and family. Patient is unable to ambulate secondary to pain. Unable to discharge home secondary to inability to ambulate. Also will be unable to ambulate with use of walker due to right radius ulna fracture. Discussed with patient and family need for admission. Patient and family are agreeable to admission. Spoke with Bella Orosco nurse practitioner hospitalist who states patient does not meet criteria for admission. Recommends to discuss case with social work. If social work is unab le to help call back to discuss admission. 03/27/20 14:41 Social work talked with family and patient. They have arranged home health. Patient does have a wheelchair at home to use. They were counseled on need to follow-up outpatient with orthopedics as previously discussed. They were provided with on-call orthopedist. Also recommend follow-up with primary care physician to further evaluate the mass that was noted on the CT to the posterior femur. Patient was given strict return to the emergency room guidelines. Return for any new or worsening symptoms. All questions were answered. Patient verbalized understanding and agrees with plan of care. 03/27/20 17:13 (JIMBO PRUITT) - Vital Signs Vital signs: Temp Pulse Resp BP Pulse Ox 98.0 F 17 177/76 H 99 03/27/20 06:54 03/27/20 07:17 03/27/20 07:17 03/27/20 07:17 - Laboratory Laboratory results interpreted by me: 03/27/20 03/27/20 03/27/20 07:51 07:51 07:51 RDW 16.1 H Plt Count 103 L Lymph % (Auto) 8.7 L Seg Neutrophils % 84.6 H APTT 22.9 L Sodium 130.8 L BUN 21 H Alkaline Phosphatase 135 H Total Protein 6.2 L Albumin 3.4 L - Consults Bella Orosco Reason for consultation: 03/27/20 12:53 Unable to ambulate secondary to fractured wrist and questionable pubis ramus fracture. Spoke with Bella Orosco nurse practitioner for hospitalist. She recommends that we speak with social services analyst person. Call was placed to social work they will contact the family to determine if patient can be safely discharged home. (JIMBO PRUITT) Procedures - Laceration/Wound Repair Right Leg Time completed: 12:30 Wound length (cm): 6 Wound's Depth, Shape: Into muscle, Irregular Laceration pre-procedure: Sterile PPE donned, Betadine prep applied Anesthetic type: 1% Lidocaine Volume Anesthetic (mLs): 2 Wound explored: Clean, No foreign body removed Wound Repaired With: Sutures, Steri-strips - steri strips applied over subcutaneous sutures. Suture Size/Type: Vicryl, 4:0 Number of Sutures: 3 Layer Closure?: No Post-procedure wound care: Other - steri strips and dressing Post-procedure NV exam normal: Yes Complications: No <JIMBO PRUITT - Last Filed: 03/27/20 17:16> Discharge <CHRISTOPHER MOLINA - Last Filed: 03/27/20 08:51> <JIMBO PRUITT - Last Filed: 03/27/20 17:16> - Discharge Clinical Impression: Mass of right thigh Distal radius fracture Qualifiers: Encounter type: initial encounter Fracture type: closed Fracture morphology: unspecified fracture morphology Laterality: right Qualified Code(s): S52.501A - Unspecified fracture of the lower end of right radius, initial encounter for closed fracture Distal end of ulna fracture, closed Qualifiers: Encounter type: initial encounter Fracture morphology: unspecified fracture morphology Laterality: right Qualified Code(s): S52.601A - Unspecified fracture of lower end of right ulna, initial encounter for closed fracture Fracture of right inferior pubic ramus Qualifiers: Encounter type: initial encounter Fracture type: closed Qualified Code(s): S32.591A - Other specified fracture of right pubis, initial encounter for closed fracture Laceration of right lower leg Qualifiers: Encounter type: initial encounter Qualified Code(s): S81.811A - Laceration without foreign body, right lower leg, initial encounter Noninfected skin tear of right lower extremity Qualifiers: Encounter type: initial encounter Qualified Code(s): S81.811A - Laceration without foreign body, right lower leg, initial encounter Condition: Stable Disposition: HOME, SELF-CARE Instructions: Abrasions ([facility]), Fractured Radius and Ulna ([facility]), Laceration Care ([facility]), Pelvic Fracture ([facility]), Care of Steri-Strip Closure ([facility]) Additional Instructions: Rest, use your wheelchair for mobility. Take medications as prescribed. Outpatient follow-up with orthopedics and primary care physician as discussed. Return to the emergency room for any new or worsening symptoms. Prescriptions: Hydrocodone/Acetaminophen [Mcarthur 5-325 mg Tablet] 1 tab PO Q6H #12 tablet Referrals: THUAN ESCOBAR MD [Primary Care Provider] - Follow up tomorrow (Call tomorrow for follow-up outpatient appointment as discussed.) SYDNEY SANTOS MD [ACTIVE PROVISIONAL STAFF] - Follow up in 3-5 days (Call tomorrow for an outpatient follow-up appointment.)
[2020-03-27 07:21] VITALS: BP 177/76
--- NOTE | 2020-03-27 07:31 | RADIOLOGY REPORT (SQ) ---
CT head without contrast on 03/27/2020 at 7:02 AM CLINICAL INDICATION: Fall, per protocol for mechanism of injury TECHNIQUE: Multiple axial images are obtained throughout the head without the administration of contrast. This exam was performed according to our departmental dose-optimization program, which includes automated exposure control, adjustment of the mA and/or kV according to patient size and/or use of iterative reconstruction technique. Total DLP is 963.96 mGy*cm. COMPARISON: 11/24/2017 FINDINGS: There is mild generalized cerebral atrophy. There is low density in the periventricular white matter consistent with chronic small vessel ischemic changes. There is no hydrocephalus. There is no hemorrhage. There are no abnormal extra-axial fluid collections. There is no mass, mass effect or midline shift. There is no CT evidence of acute infarct. No bony abnormality is noted. IMPRESSION: Atrophy and chronic small vessel ischemic changes with no acute intracranial abnormality.
--- NOTE | 2020-03-27 07:39 | RADIOLOGY REPORT (SQ) ---
EXAM DESCRIPTION: XR WRIST 3 OR MORE VIEWS COMPLETED DATE/TME: 03/27/2020 06:37 CLINICAL HISTORY: 89 years, Female, fall, R wrist pain COMPARISON: None. NUMBER OF VIEWS: Three TECHNIQUE: Three views of the right wrist LIMITATIONS: None. FINDINGS: Bones are demineralized. There is a nondisplaced fracture of the distal radius with extension into the radiocarpal joint. There is a nondisplaced fracture involving the ulnar styloid. No definite fracture of the carpal bones. There is soft tissue swelling surrounding the wrist. Vascular calcifications are noted. IMPRESSION: Nondisplaced fracture of the distal radius with intra-articular extension. Nondisplaced ulnar styloid fracture. copyright 2010 [employer]- All Rights Reserved
--- NOTE | 2020-03-27 07:46 | RADIOLOGY REPORT (SQ) ---
EXAM: CT Cervical Spine Without Intravenous Contrast EXAM DATE/TIME: 03/27/2020 7:03 am CLINICAL HISTORY: The patient is 89 years old and is Female; fall TECHNIQUE: Axial computed tomography images of the cervical spine without intravenous contrast. Sagittal and coronal reformatted images were created and reviewed. This CT exam was performed using one or more of the following dose reduction techniques: automated exposure control, adjustment of the mA and/or kV according to patient size, and/or use of iterative reconstruction technique. COMPARISON: No relevant prior studies available. FINDINGS: VERTEBRAE: No acute fracture. There is 3 mm anterolisthesis at C3-4, with 2 mm anterolisthesis at C4-5 and C7-T1. This is favored to be chronic. DISCS/SPINAL CANAL/NEURAL FORAMINA: There is intervertebral disc height loss which is most prominent at C6-7. No significant spinal canal narrowing. There is neural foraminal narrowing which is moderate to severe on the right at C3-4. Neural foraminal narrowing is mild to moderate at the remaining levels. SOFT TISSUES: No significant prevertebral soft tissue swelling. LUNG APICES: Minimal scarring in the lung apices. IMPRESSION: No acute findings in the cervical spine.
[2020-03-27 08:06] LABS: ABSOLUTE BASOPHILS # (AUTO) 0.1 10^3/uL (0.0-0.2); ABSOLUTE EOSINOPHILS # (AUTO) 0.1 10^3/uL (0.0-0.6); ABSOLUTE LYMPHOCYTES (AUTO) 0.7 10^3/uL (0.5-4.7); ABSOLUTE MONOCYTES (AUTO) 0.5 10^3/uL (0.1-1.4); ABSOLUTE NEUT (AUTO) 7.2 10^3/uL (1.7-8.2); BASOPHILS % (AUTO) 0.6 % (0-2); EOSINOPHILS % (AUTO) 0.7 % (0-6); HEMATOCRIT 36.8 % (36.0-47.0); HEMOGLOBIN 12.4 g/dL (12.0-15.5); LYMPHOCYTES % (AUTO) 8.7 % (13-45); MEAN CORPUSCULAR HEMOGLOBIN 30.3 pg (27.0-33.4); MEAN CORPUSCULAR HGB CONC 33.7 g/dL (32.0-36.0); MEAN CORPUSCULAR VOLUME 90 fl (80-97); MONOCYTES % (AUTO) 5.4 % (3-13); PLATELET COUNT 103 10^3/uL (150-450); RED BLOOD COUNT 4.09 10^6/uL (3.72-5.28); RED CELL DISTRIBUTION WIDTH 16.1 % (11.5-14.0); SEGMENTED NEUTROPHILS % (AUTO) 84.6 % (42-78); TOTAL CELLS COUNTED % (AUTO) 100 %; WHITE BLOOD COUNT 8.6 10^3/uL (4.0-10.5)
[2020-03-27 08:19] LABS: INTERNATIONAL RATION (INR) 1.06; PARTIAL THROMBOPLASTIN TIME 22.9 SEC (23.5-35.8); PROTHROMBIN TIME 13.9 SEC (11.4-15.4)
[2020-03-27 08:24] LABS: ALBUMIN 3.4 g/dL (3.5-5.0); ALKALINE PHOSPHATASE 135 U/L (38-126); ANION GAP 6 (5-19); ASPARTATE AMINO TRANSFERASE 30 U/L (14-36); BILIRUBIN,TOTAL 0.9 mg/dL (0.2-1.3); BLOOD UREA NITROGEN 21 mg/dL (7-20); CALCIUM 8.9 mg/dL (8.4-10.2); CARBON DIOXIDE 27 mmol/L (22-30); CHLORIDE 98 mmol/L (98-107); GLUCOSE 103 mg/dL (75-110); POTASSIUM 4.7 mmol/L (3.6-5.0); TOTAL PROTEIN 6.2 g/dL (6.3-8.2)
[2020-03-27] MEDS ORDERED: HYDROCODONE/ACETAMINOPHEN 5-325 MG TABLET PO ONE (08:48)
--- NOTE | 2020-03-27 09:25 | RADIOLOGY REPORT (SQ) ---
EXAM DESCRIPTION: TIBIA FIBULA RIGHT IMAGES COMPLETED DATE/TIME: 03/27/2020 9:10 am REASON FOR STUDY: fall COMPARISON: None. NUMBER OF VIEWS: Two views. TECHNIQUE: Two radiographic images acquired of the right tibia and fibula to include the knee and an kle in at least one projection. LIMITATIONS: None. FINDINGS: MINERALIZATION: Decreased. BONES: No acute fracture or dislocation. Mild degenerative changes at the knee and ankle with scatte red osteophytes. No suspicious osseous lesions. SOFT TISSUES: Vascular calcifications. No radiopaque foreign body OTHER: No other significant finding. IMPRESSION: No evidence of acute bony abnormality of the right tibia or fibula. Decreased mineraliz ation. TECHNICAL DOCUMENTATION: JOB ID: [id number] 2010 [employer]- All Rights Reserved Reading location - IP/workstation name: [email or web address]
--- NOTE | 2020-03-27 10:16 | RADIOLOGY REPORT (SQ) ---
EXAM DESCRIPTION: HIP RIGHT AP/LATERAL IMAGES COMPLETED DATE/TIME: 03/27/2020 9:50 am REASON FOR STUDY: fall COMPARISON: None. NUMBER OF VIEWS: Two views. TECHNIQUE: AP pelvis and additional frog-leg view of the right hip. LIMITATIONS: None. FINDINGS: MINERALIZATION: Decreased. 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 No definitive displaced fract ure identified. LEFT HIP: Incompletely imaged. Severe degenerative changes with bone on bone contact, osteophytosis, subchondral sclerosis and subchondral cystic change. PUBIS AND ISCHIUM: No displaced fracture. Decreased mineralization pre SACRUM: Limited evaluation. Bilateral SI joint osteophytosis. LOWER LUMBAR SPINE: Lower lumbar spondylosis and facet arthropathy. SOFT TISSUES: Extensive vascular calcifications. OTHER: No other significant finding. IMPRESSION: 1. Postsurgical changes from the total hip arthroplasty without definite acute bony abn ormality of the right hip. Evaluation severely limited secondary to decreased osseous mineralization . If high clinical concern recommend CT. 2. 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 COMMENT: Pelvic fractures are often occult on plain radiographs. If high clinical concern or inabil ity to bear weight, recommend CT. TECHNICAL DOCUMENTATION: JOB ID: [id number] 2010 [employer]- All Rights Reserved Reading location - IP/workstation name: [email or web address]
--- NOTE | 2020-03-27 11:27 | RADIOLOGY REPORT (SQ) ---
EXAM DESCRIPTION: CT RT LOWER EXTREMITY WITHOUT IMAGES COMPLETED DATE/TIME: 03/27/2020 10:48 am REASON FOR STUDY: right hip pain COMPARISON: Same day radiograph, 01/19/2019 CT abdomen pelvis. TECHNIQUE: CT scan of the right hip performed without intravenous or oral contrast. Images reviewed with soft tissue and bone windows. Reconstructed coronal and sagittal MPR images reviewed. All taras ges stored on PACS. All CT scanners at this facility use dose modulation, iterative reconstruction, and/or weight based d osing when appropriate to reduce radiation dose to as low as reasonably achievable (ALARA). [facility]: Dose Right [facility]: CareDose [facility]: Dose Right [facility]: Teradose 4D [facility]: Smart [employer] RADIATION DOSE: CT Rad equipment meets quality standard of care and radiation dose reduction techniq ues were employed. CTDIvol: 12.8 mGy. DLP: 422 mGy-cm. mGy. LIMITATIONS: Right hip arthroplasty streak artifact. FINDINGS: PELVIC BONES: Acute cortical angulation at the lateral border of the inferior pubic ramus on the right (series 2, image 69 possibly nondisplaced fracture. No cortical lucency identified. . VISUALIZED SPINE: No acute findings. Lower lumbar spondylosis. 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 No evidence of acute fr acture or hardware complication. OPPOSITE HIP: Not imaged. PELVIC SOFT TISSUES: Scattered vascular calcifications. EXTRAPELVIC SOFT TISSUES: There is a bilobed mass measuring approximately 10.0 x 8.4 x 5.3 cm along t he right posterior proximal thigh which ext which extends cranially to the level of the arthroplasty and inferiorly to the level of the mid proximal thigh. Ends into the obturator foramen (series 4, im age 71 and series 301, image 36)). This is grossly stable in size and morphology compared to CT date d 01/19/2019. OTHER: No other significant finding. IMPRESSION: 1. No displaced fracture. Acute cortical angulation at the lateral border of the infer ior pubic ramus on the right, possibly nondisplaced buckle type fracture however no discrete cortical lucency identified. 2. Incompletely characterized bilobed mass measuring approximately 10.0 x 8.4 x 5.3 cm along the pos terior proximal thigh extending from the level of the right hip arthroplasty to the proximal mid thig h. Findings grossly stable compared to exam dated 01/19/2019. Considerations include chronic postoper ative collection or soft tissue mass such as a peripheral nerve sheath tumor. Contrasted exam or ult rasound could be considered for further characterization. Findings conveyed to Gillian Lindo at 1120 hours on 03/27/2020 TECHNICAL DOCUMENTATION: JOB ID: [id number] Quality ID # [id number]: Final reports with documentation of one or more dose reduction techniques (e.g., Au tomated exposure control, adjustment of the mA and/or kV according to patient size, use of iterative reconstruction technique) 2010 [employer]- All Rights Reserved Reading location - IP/workstation name: [email or web address]
[2020-03-27] MEDS ORDERED: LIDOCAINE 1% INJ-PF (10 MG/ML) 30 ML SDV INJ ONE (11:51)
== END 2020-03-27 15:30 | disposition home or self-care (01) ==
LOC: ER 06:08
DX: S52.571A Other intraarticular fracture of lower end of right radius, initial encounter for closed fracture (principal); S52.614A Nondisplaced fracture of right ulna styloid process, initial encounter for closed fracture; S32.591A Other specified fracture of right pubis, initial encounter for closed fracture; S86.221A Laceration of muscle(s) and tendon(s) of anterior muscle group at lower leg level, right leg, initial encounter; S81.811A Laceration without foreign body, right lower leg, initial encounter; W01.0XXA Fall on same level from slipping, tripping and stumbling without subsequent striking against object, initial encounter; Y93.89 Activity, other specified; R22.41 Localized swelling, mass and lump, right lower limb; G31.9 Degenerative disease of nervous system, unspecified; I25.10 Atherosclerotic heart disease of native coronary artery without angina pectoris; I10 Essential (primary) hypertension; J45.909 Unspecified asthma, uncomplicated; Z88.1 Allergy status to other antibiotic agents
CPT/HCPCS: 99284; 36415; 83690; 85025; 85610; 85730; 80053; 73502; 73590; 73110; 70450; 72125; 73700; 12002; J3490; A9270